=== PATIENT | female | born 1945 | race Caucasian/White ===

== ENCOUNTER 2016-12-01 11:04 | Emergency (ER) ==
[2016-12-01 12:13] LABS: MANUAL DIFF NEEDED? NO
[2016-12-01 12:25] LABS: INR 1.07; PROTIME 11.4 Seconds (9.2-11.7); PTT 23.7 Seconds (22.0-36.0)
--- NOTE | 2016-12-01 12:25 | Diag Imaging Result Document ---
PROCEDURE NAME: CHEST-2 VIEWS - 12/01/2016 CHEST X-RAY 2 VIEWS: COMPARISON: 11/08/2016. FINDINGS: There is a right PICC line with the catheter tip in the bottom of the right atrium. The lungs are grossly clear, and the heart size is normal. No pneumothorax or pleural effusion. IMPRESSION: PICC line is in a little too far. Recommend backing this out by about 5 cm.
[2016-12-01 12:27] LABS: BASO% 0.4 % (0.0-0.8); EOS# 0.39 X1000 (0.0-0.7); EOS% 4.8 % (0.0-10.0); HEMATOCRIT 24.5 % (37.0-47.0); HEMOGLOBIN 8.1 g/dL (12.0-16.0); IMM GRAN# 0.03 X1000 (0.0-0.04); IMM GRAN% 0.4 % (0.0-0.5); LYMPH# 1.03 X1000 (1.2-3.4); LYMPH% 12.7 % (20.5-51.1); MCH 29.1 PG (27-31); MCHC 33.1 g/dL (33-37); MCV 88.1 FL (81-99); MONO# 0.55 X1000 (0.11-0.59); MONO% 6.8 % (1.7-9.3); MPV 10.5 FL (7.4-10.4); NEUT% 74.9 % (42.2-75.2); PLT 184 X1000 (130-400); RBC 2.78 XMIL (4.2-5.4)
[2016-12-01 12:45] LABS: ALBUMIN 3.6 g/dL (3.5-5.0); CALCIUM 8.5 mg/dL (8.8-10.2); POTASSIUM 4.6 mmol/L (3.5-5.1); TOTAL BILIRUBIN 0.26 mg/dL (0.20-1.00); TOTAL PROTEIN 6.3 g/dL (6.3-8.3)
--- NOTE | 2016-12-01 12:59 | PROVIDER DOCUMENTATION ---
Addendum entered and electronically signed by Godwin Navarro Scribe 12/01/16 13 :14: Progress - CONSULTS/PCP/HOSPITALIST Notification #1 *Consult/PCP/Hospitalist*: Dr.R Alvares Time Discussed: 12:50 Reason/Comments: placepatient on elquis Consult Disposition: F/U in office #2 Consult: Dr. Wilian Norris Time Discussed: 13:14 Reason/Comments: dvt, picc line remove, order gammglobin Consult Disposition: F/U in office Original Note: HPI-General Adult - General Source: patient - History of Present Illness -Gen Adult Nature of Presenting Problems: patient is a 71 y/o F that presents to the ER with right arm swelling and evaluation of PICC line per Dr.Leroy Norris. patient has PICC in place for outpatient antibiotics. patient has swelling to arm and was worried she might have DVT, no shortness of breath, no chest pain. Location of Pain/Injury: reports: upper extremity (right arm) Pain Radiation: reports: no radiation Severity: reports: mild Onset/Duration: reports: unsure Timing: reports: still present, constant Context/Activities at Onset: reports: other (picc line) Modifying Factors: improves with: nothing Associated Symptoms: reports: arm pain. denies: back/neck pain, constipation, dizziness, EENT symptoms, fatigue, joint pain, malaise, nausea, vomiting Similar Symptoms Previously?: No Recently seen or treated by another doctor?: Yes - General Chief Complaint: Edema Stated Complaint: POSS CLOT IN PIC LINE Time Seen by Provider: 12/01/16 11:32 Allergies/Adverse Reactions: Patient Allergies Allergy/AdvReac Type Severity Reaction Status Date / Time No Known Allergies Allergy Verified 12/01/16 12:14 Home Medications: Carvedilol [Coreg] 12.5 mg PO BID 10/21/13 Amlodipine Besylate 5 mg PO DAILY 01/29/16 Iron Carbonyl/Ascorbic Acid [Icar-C] 1 tab PO BID 02/15/16 Bisacodyl [Dulcolax] 10 mg [place] DAILY PRN PRN 10/06/16 Diphenhydramine [Benadryl] 25 mg PO Q4-6H PRN PRN 10/06/16 Fluoxetine HCl 40 mg PO DAILY 10/06/16 Fluticasone Propionate [Flonase Allergy Relief] 1 spray NS BID 10/06/16 Hydrocodone/Acetaminophen [[place] 5-325 Tablet] 1 each PO Q4H PRN PRN 10/06/16 Insulin Lispro [Humalog] 6 unit SQ TID 10/06/16 LOVAstatin [Mevacor] 20 mg PO HS 10/06/16 Levothyroxine [Synthroid] 25 microgm PO DAILY 10/06/16 Omeprazole [Prilosec] 20 mg PO DAILY@0700 10/06/16 Topiramate 25 mg PO DAILY 10/06/16 Review of Systems - Adult - REVIEW OF SYSTEMS - ADULT Constitutional: denies: chills, fever Eyes: reports: no symptoms reported Ears, Nose, Mouth & Throat: reports: no symptoms reported Cardiovascular: denies: chest pain, orthopnea, palpitations, syncope Respiratory: denies: hemoptysis, pleurisy, shortness of breath Gastrointestinal: denies: abdominal pain, nausea, vomiting Genitourinary: reports: no symptoms reported Musculoskeletal: reports: bone pain. denies: back pain, neck pain Integumentary: reports: no symptoms reported Neurological: reports: no symptoms reported Psychiatric: reports: no symptoms reported Endocrine: reports: no symptoms reported Hematologic/Lymphatic: reports: no symptoms reported Allergic/Immunologic: reports: no symptoms reported All Other Systems: Reviewed and Negative Past History - Adult - PAST MEDICAL HISTORY-ADULT Review of Records: reports: Old Records Reviewed, Nursing Assessment Review, Medications Reviewed Cardiovascular: reports: CHF, HTN, hyperlipidemia Respiratory: reports: asthma, COPD Genitourinary: reports: kidney disease Neurological: reports: dementia Endocrine/Immune: reports: Diabetes - PRIOR SURGERIES/PROCEDURES Surgical/Procedure History: reports: hysterectomy, BTL, indwelling device (PICC LINE), tonsillectomy, orthopedic (extremity) (arthroscopy), joint replacement ( Left Hip), other (cystoscopy) - IMMUNIZATION STATUS Childhood Immunizations: See Nurse Assessment Flu Vaccine: See Nurse Assessment - FAMILY HISTORY Family History: reviewed, not pertinent Physical Exam-General - PHYSICAL EXAM-ADULT Initial Vital Signs Reviewed: Yes - CONSTITUTIONAL General Appearance: alert, no apparent distress - EYES Eyes: PERRL/EOMI, pink conjunctivae - HEAD, EARS, NOSE, MOUTH & THROAT HENMT: normocephalic/atraumatic, moist mucous membranes, normal ENT inspection - NECK Neck: full range of motion, normal inspection. negative: lymphadenopathy - RESPIRATORY Respiratory: lungs clear, normal breath sounds, no respiratory distress, no accessory muscle use - CARDIOVASCULAR Cardiovascular: regular rate, rhythm, no edema, no murmur - GASTROINTESTINAL (ABDOMEN) Abdominal Exam: normal bowel sounds, non tender, soft, no organomegaly - MUSCULOSKELETAL Back Exam: no CVA tenderness, no vertebral tenderness Extremity: normal capillary refill, pelvis stable, swelling (right arm, picc line in place) - SKIN Integumentary: normal turgor, warm/dry - NEUROLOGIC Neurologic: grossly normal, no motor/sensory deficits - PSYCHIATRIC Psych/Mental Status: normal mood/affect, normal thought content, normal thought process, oriented x 3 Progress - PLAN OF CARE/RESULTS Progress/Plan/Lab Results: Vital Signs Temp Pulse Resp BP Pulse Ox 12/01/16 11:12 98.2 F 69 24 165/67 98 No Known Allergies Allergy (Verified 12/01/16 12:14) Carvedilol [Coreg] 12.5 mg PO BID 10/21/13 Aspirin 81 mg PO DAILY #0 chewtab 06/26/14 Amlodipine Besylate 5 mg PO DAILY 01/29/16 Iron Carbonyl/Ascorbic Acid [Icar-C] 1 tab PO BID 02/15/16 Bisacodyl [Dulcolax] 10 mg [place] DAILY PRN PRN 10/06/16 Diphenhydramine [Benadryl] 25 mg PO Q4-6H PRN PRN 10/06/16 Fluoxetine HCl 40 mg PO DAILY 10/06/16 Fluticasone Propionate [Flonase Allergy Relief] 1 spray NS BID 10/06/16 Hydrocodone/Acetaminophen [[place] 5-325 Tablet] 1 each PO Q4H PRN PRN 10/06/16 Insulin Lispro [Humalog] 6 unit SQ TID 10/06/16 LOVAstatin [Mevacor] 20 mg PO HS 10/06/16 Levothyroxine [Synthroid] 25 microgm PO DAILY 10/06/16 Omeprazole [Prilosec] 20 mg PO DAILY@0700 10/06/16 Topiramate 25 mg PO DAILY 10/06/16 Doxycycline Hyclate 100 mg PO BID #0 11/09/16 Ergocalciferol (Vitamin D2) [Vitamin D] 50,000 unit PO Q7D #0 capsule 11/09/16 Insulin Detemir [Levemir] 25 unit SUBQ BID #0 insuln.pen 11/09/16 Meropenem [Merrem] 500 mg IV Q12H #1 vial 11/09/16 Polyethylene Glycol 3350 [Miralax] 17 gm PO BID #0 powder, packet 11/09/16 Sodium Bicarbonate 1,300 mg PO BID #0 tablet 11/09/16 Laboratory 12/01/16 12/01/16 12/01/16 12:00 12:00 12:00 WBC RBC Hgb Hct MCV MCH MCHC RDW Std Deviation Plt Count MPV Immature Gran % (Auto) Neut % (Auto) Lymph % (Auto) [place] % (Auto) Eos % (Auto) Baso % (Auto) Immature Gran # (Auto) Neut # (Auto) Lymph # (Auto) [place] # (Auto) Eos # (Auto) Baso # (Auto) PT 11.4 INR 1.07 PTT (Actin FS) 23.7 Sodium Potassium Chloride Carbon Dioxide Anion Gap BUN Creatinine Estimated GFR/1.73 m2 BUN/Creatinine Ratio Glucose Calculated Osmolality Calcium Magnesium Total Bilirubin AST ALT Alkaline Phosphatase Creatine Kinase Troponin T 0.068 Nms-J-Bhovrbwpdwb Pept 3579 H Total Protein Albumin Globulin Albumin/Globulin Ratio 12/01/16 12/01/16 12:00 12:00 WBC 8.09 RBC 2.78 L Hgb 8.1 L Hct 24.5 L MCV 88.1 MCH 29.1 MCHC 33.1 RDW Std Deviation 13.2 Plt Count 184 MPV 10.5 H Immature Gran % (Auto) 0.4 Neut % (Auto) 74.9 Lymph % (Auto) 12.7 L [place] % (Auto) 6.8 Eos % (Auto) 4.8 Baso % (Auto) 0.4 Immature Gran # (Auto) 0.03 Neut # (Auto) 6.06 Lymph # (Auto) 1.03 L [place] # (Auto) 0.55 Eos # (Auto) 0.39 Baso # (Auto) 0.03 PT INR PTT (Actin FS) Sodium 140 Potassium 4.6 Chloride 105 Carbon Dioxide 20 L Anion Gap 15 BUN 49 H Creatinine 3.1 H Estimated GFR/1.73 m2 15 BUN/Creatinine Ratio 16 Glucose 181 H Calculated Osmolality 297 Calcium 8.5 L Magnesium 2.0 Total Bilirubin 0.26 AST 9 L ALT 10 Alkaline Phosphatase 81 Creatine Kinase 35 Troponin T Oui-Y-Ukfnzpjebom Pept Total Protein 6.3 Albumin 3.6 Globulin 2.7 Albumin/Globulin Ratio 1.3 Orders Category Date Time Status Cardiac Monitoring DIRECTED Care 12/01/16 11:26 Active Saline Loc NOW Care 12/01/16 11:26 Active CHEST-2 VIEWS [RAD] Stat Exams 12/01/16 11:26 Draft CBC WITH ELECTRONIC DIFF [HEME] Stat Lab 12/01/16 12:00 Completed CK PROFILE [SP CHEM] Stat Lab 12/01/16 12:00 Completed COMPREHENSIVE METABOLIC PANEL [CHEM] Stat Lab 12/01/16 12:00 Com[address] D-DIMER PL [COAG] Stat Lab 12/01/16 12:00 Ordered MAGNESIUM [CHEM] Stat Lab 12/01/16 12:00 Completed PRO B-NATRIURETIC PEPTIDE Stat Lab 12/01/16 12:00 Completed PROTIME WITH INR [COAG] Stat Lab 12/01/16 12:00 Completed PTT [COAG] Stat Lab 12/01/16 12:00 Completed TROPONIN T Stat Lab 12/01/16 12:00 Completed EKG [EKG] Stat Ther 12/01/16 11:26 Ordered US [Venous U/S Right Arm] [CV] Stat Ther 12/01/16 11:30 Ordered removed PICC LINE, spoke with who recommended placing patient on Elquis and following up with him outpatient randall. pt was clinically stable. - ULTRASOUND (By Radiology) 1 US Study: Upper Ext Impression: Abnormal US Results: dvt Departure - Departure Time of Disposition Order: 12:54 Certified Medical Emergency: Emergent - Departure DIAGNOSIS: Arm edema, Deep vein thrombosis (DVT) of right upper extremity Disposition: HOME 01 Condition: Stable Additional Instructions: f/u with Dr. Norris and Giorgio ED Follow Up Instructions: You have been treated by a care provider in the Emergency Department. These instructions are being provided to you so you can have an understanding of how to care for yourself upon discharge. Upon discharge from the Emergency Department, you are responsible for making arrangements for follow-up care by a physician of your choice. Take all prescribed medications as directed. Return to the Emergency Department immediately for any new or worsening symptoms. You may call the Physician Referral phone number at [phone] to obtain a list of Physicians who are taking new patients. Prescriptions: Apixaban [Eliquis] 5 mg PO BID #208 tablet Referrals: Lynne Kwok MD [Primary Care Provider] - Wilian Norris MD [STAFF PHYSICIAN] - Call for Appoint. 1-2days Jey Alvares MD [STAFF PHYSICIAN] - Call for Appoint. 1-2days Instructions: Deep Vein Thrombosis Attestation - Scribe Verification/Attestation Scribe:: Godwin Navarro Acting as Scribe for:: Gonzalo Zavaleta Scribe documention review:: This chart was documented by a scribe and accurately reflects the service the provider performed and the decisions made by the provider. Physician Attestation - Physician Attestation I, the provider, attest to the following statement:: Gonzalo Zavaleta Physician documentation Attestation:: This documentation recorded by the scribe accurately reflects the service I personally performed and the decisions made by me.
[2016-12-01] MEDS ORDERED: ELIQUIS PO ONE (13:00)
[2016-12-01 13:50] VITALS: BP 168/78
--- NOTE | 2016-12-02 16:53 | Extremity Venous Study ---
PROCEDURE NAME: Venous U/S Right Arm - 12/01/2016 REQUESTING PHYSICIAN: Dr. Zavaleta in the emergency department. LACE ROLLER OPERATOR: Olinda. TEST: Right upper extremity venous study. INDICATIONS: Edema at peripherally inserted catheter. PROCEDURES: Right upper extremity venous duplex color-flow imaging. EQUIPMENT: G[employer] Vivid E9 ultrasound system and a 9 LD transducer. FINDINGS: Imaging of the right upper extremity with comparison shot to the left subclavian vein retained in both sagittal and transverse planes. Doppler was used to evaluate veins for spontaneity, phasicity, respiratory excursion, and digital augmentation. RESULTS: DVT noted the right axillary vein and superficial venous thrombosis noted in the right basilic vein. This appears to be associated with a catheter. INTERPRETATION: Catheter-associated superficial venous thrombosis in the right basilic vein and deep venous thrombosis noted the right axillary vein.
== END 2016-12-01 13:49 | disposition home or self-care (01) ==
LOC: ED 11:04
DX: I82.621 Acute embolism and thrombosis of deep veins of right upper extremity (principal); R60.9 Edema, unspecified; I10 Essential (primary) hypertension; E78.5 Hyperlipidemia, unspecified; J44.9 Chronic obstructive pulmonary disease, unspecified; F03.90 Unspecified dementia, unspecified severity, without behavioral disturbance, psychotic disturbance, mood disturbance, and anxiety; E11.9 Type 2 diabetes mellitus without complications; M89.8X9 Other specified disorders of bone, unspecified site; Z79.899 Other long term (current) drug therapy; Z96.642 Presence of left artificial hip joint; Z79.4 Long term (current) use of insulin
CPT/HCPCS: 36415; 71020; 80053; 82550; 82784; 83735; 83880; 84484; 85025; 85610; 85730; 93971; 99283

== ENCOUNTER 2016-12-04 13:30 | Emergency (ER) ==
[2016-12-04] MEDS ORDERED: NITROGLYCERIN SL PRN (13:53)
[2016-12-04] MEDS ORDERED: ASPIRIN PO STA (13:53)
--- NOTE | 2016-12-04 14:18 | PROVIDER DOCUMENTATION ---
HPI-Respiratory General - General Chief Complaint: Low Blood Sugar Stated Complaint: SOB/hypoglycemia Time Seen by Provider: 12/04/16 13:35 Source: patient Allergies/Adverse Reactions: Patient Allergies Allergy/AdvReac Type Severity Reaction Status Date / Time No Known Allergies Allergy Verified 12/04/16 13:53 Home Medications: Carvedilol [Coreg] 12.5 mg PO BID 10/21/13 Amlodipine Besylate 5 mg PO DAILY 01/29/16 Iron Carbonyl/Ascorbic Acid [Icar-C] 1 tab PO BID 02/15/16 Bisacodyl [Dulcolax] 10 mg [place] DAILY PRN PRN 10/06/16 Diphenhydramine [Benadryl] 25 mg PO Q4-6H PRN PRN 10/06/16 Fluoxetine HCl 40 mg PO DAILY 10/06/16 Fluticasone Propionate [Flonase Allergy Relief] 1 spray NS BID 10/06/16 Hydrocodone/Acetaminophen [[place] 5-325 Tablet] 1 each PO Q4H PRN PRN 10/06/16 Insulin Lispro [Humalog] 6 unit SQ TID 10/06/16 LOVAstatin [Mevacor] 20 mg PO HS 10/06/16 Levothyroxine [Synthroid] 25 microgm PO DAILY 10/06/16 Omeprazole [Prilosec] 20 mg PO DAILY@0700 10/06/16 Topiramate 25 mg PO DAILY 10/06/16 - History of Present Illness-Resp Nature of Presenting Problem: 71 yo WF brought in by EMS from [facility]. Her blood sugar had dropped again and she developed SOB when they laid her down flat. Her BS was initially in the 50s. It was 94 in the truck and 83 on arrival to ED. Her breathing difficulty had resolved on arrival. Very complex medical history Quality of Pain: reports: none Timing: reports: still present Context: reports: other Cough Quality/Degree: reports: no cough Current Respiratory Medication Therapy: Initiated none Modifying Factors: improves with: oxygen, rest, sitting upright Associated Symptoms: reports: shortness of breath, short of breath. denies: sore throat, wheezing Similar Symptoms Previously?: Yes Recently seen or treated by another doctor?: Yes Review of Systems - Adult - REVIEW OF SYSTEMS - ADULT Constitutional: reports: no symptoms reported Eyes: reports: no symptoms reported Ears, Nose, Mouth & Throat: reports: no symptoms reported Cardiovascular: reports: orthopnea Respiratory: reports: shortness of breath Gastrointestinal: reports: no symptoms reported Genitourinary: reports: no symptoms reported, frequent UTI's, other (has chronic flores changed every 30 days) Musculoskeletal: reports: no symptoms reported Integumentary: reports: no symptoms reported Neurological: reports: no symptoms reported Psychiatric: reports: no symptoms reported Endocrine: reports: other (frequent hypoglycemia, almost every morning) Hematologic/Lymphatic: reports: no symptoms reported Allergic/Immunologic: reports: no symptoms reported All Other Systems: Reviewed and Negative Past History - Adult - PAST MEDICAL HISTORY-ADULT Review of Records: reports: Old Records Reviewed, Nursing Assessment Review, Medications Reviewed, Social history reviewed & non-contributory. Cardiovascular: reports: CHF, HTN, hyperlipidemia Respiratory: reports: asthma, COPD Genitourinary: reports: kidney disease Neurological: reports: dementia Endocrine/Immune: reports: Diabetes - PRIOR SURGERIES/PROCEDURES Surgical/Procedure History: reports: hysterectomy, BTL, indwelling device (PICC LINE), tonsillectomy, orthopedic (extremity) (arthroscopy), joint replacement ( Left Hip), other (cystoscopy) - IMMUNIZATION STATUS Childhood Immunizations: See Nurse Assessment Flu Vaccine: See Nurse Assessment - FAMILY HISTORY Family History: reviewed, not pertinent - SOCIAL HISTORY Smoking: denies Substance Use: none/never Alcohol Use Frequency: never Living Situation: other (ID) Physical Exam-General - PHYSICAL EXAM-ADULT Initial Vital Signs Reviewed: Yes - CONSTITUTIONAL General Appearance: no apparent distress - EYES Eyes: PERRL/EOMI, pink conjunctivae - HEAD, EARS, NOSE, MOUTH & THROAT HENMT: normocephalic/atraumatic, moist mucous membranes - NECK Neck: supple - RESPIRATORY Respiratory: lungs clear, normal breath sounds. negative: wheezing - CARDIOVASCULAR Cardiovascular: regular rate, rhythm - GASTROINTESTINAL (ABDOMEN) Abdominal Exam: normal bowel sounds, non tender - MUSCULOSKELETAL Back Exam: no CVA tenderness, other (R arm larger than left due to previous clot ) Extremity: pedal edema - SKIN Integumentary: pallor - NEUROLOGIC Neurologic: grossly normal - PSYCHIATRIC Psych/Mental Status: normal mood/affect Progress - PLAN OF CARE/RESULTS Progress/Plan/Lab Results: No Known Allergies Allergy (Verified 12/04/16 13:53) Carvedilol [Coreg] 12.5 mg PO BID 10/21/13 Aspirin 81 mg PO DAILY #0 chewtab 06/26/14 Amlodipine Besylate 5 mg PO DAILY 01/29/16 Iron Carbonyl/Ascorbic Acid [Icar-C] 1 tab PO BID 02/15/16 Bisacodyl [Dulcolax] 10 mg [place] DAILY PRN PRN 10/06/16 Diphenhydramine [Benadryl] 25 mg PO Q4-6H PRN PRN 10/06/16 Fluoxetine HCl 40 mg PO DAILY 10/06/16 Fluticasone Propionate [Flonase Allergy Relief] 1 spray NS BID 10/06/16 Hydrocodone/Acetaminophen [[place] 5-325 Tablet] 1 each PO Q4H PRN PRN 10/06/16 Insulin Lispro [Humalog] 6 unit SQ TID 10/06/16 LOVAstatin [Mevacor] 20 mg PO HS 10/06/16 Levothyroxine [Synthroid] 25 microgm PO DAILY 10/06/16 Omeprazole [Prilosec] 20 mg PO DAILY@0700 10/06/16 Topiramate 25 mg PO DAILY 10/06/16 Doxycycline Hyclate 100 mg PO BID #0 11/09/16 Ergocalciferol (Vitamin D2) [Vitamin D] 50,000 unit PO Q7D #0 capsule 11/09/16 Insulin Detemir [Levemir] 25 unit SUBQ BID #0 insuln.pen 11/09/16 Meropenem [Merrem] 500 mg IV Q12H #1 vial 11/09/16 Polyethylene Glycol 3350 [Miralax] 17 gm PO BID #0 powder, packet 11/09/16 Sodium Bicarbonate 1,300 mg PO BID #0 tablet 11/09/16 Apixaban [Eliquis] 5 mg PO BID #208 tablet 12/01/16 Dietary Diet Regular Diet Start Sun Dec 04 1353 Laboratory 12/04/16 12/04/16 12/04/16 14:15 14:15 14:15 WBC RBC Hgb Hct MCV MCH MCHC RDW Std Deviation Plt Count MPV Immature Gran % (Auto) Neut % (Auto) Lymph % (Auto) [place] % (Auto) Eos % (Auto) Baso % (Auto) Immature Gran # (Auto) Neut # (Auto) Lymph # (Auto) [place] # (Auto) Eos # (Auto) Baso # (Auto) PT 12.2 H INR 1.15 PTT (Actin FS) 27.0 D-Dimer Sodium Potassium Chloride Carbon Dioxide Anion Gap BUN Creatinine Estimated GFR/1.73 m2 BUN/Creatinine Ratio Glucose Calculated Osmolality Calcium Magnesium Total Bilirubin AST ALT Alkaline Phosphatase Creatine Kinase Troponin T 0.071 Yig-A-Yykrthrknjf Pept 3361 H Total Protein Albumin Globulin Albumin/Globulin Ratio 12/04/16 12/04/16 12/04/16 14:15 14:15 14:15 WBC 9.72 RBC 2.89 L Hgb 8.3 L Hct 25.3 L MCV 87.5 MCH 28.7 MCHC 32.8 L RDW Std Deviation 13.0 Plt Count 211 MPV 10.0 Immature Gran % (Auto) 0.5 Neut % (Auto) 77.9 H Lymph % (Auto) 10.2 L [place] % (Auto) 6.1 Eos % (Auto) 5.0 Baso % (Auto) 0.3 Immature Gran # (Auto) 0.05 H Neut # (Auto) 7.57 H Lymph # (Auto) 0.99 L [place] # (Auto) 0.59 Eos # (Auto) 0.49 Baso # (Auto) 0.03 PT INR PTT (Actin FS) D-Dimer 1.64 H Sodium 139 Potassium 4.3 Chloride 105 Carbon Dioxide 20 L Anion Gap 14 BUN 50 H Creatinine 3.2 H Estimated GFR/1.73 m2 14 BUN/Creatinine Ratio 16 Glucose 61 L Calculated Osmolality 289 Calcium 8.0 L Magnesium 2.0 Total Bilirubin 0.21 AST 13 ALT 12 Alkaline Phosphatase 85 Creatine Kinase 28 Troponin T Cdh-M-Bjyyuwcssod Pept Total Protein 6.3 Albumin 3.7 Globulin 2.6 Albumin/Globulin Ratio 1.4 1500 Patient much improved in mentation and interaction. Discussed discharge and need to monitor BS and have insulin adjusted. Needs continuous monitoring of BS and Cr. Departure - Departure Time of Disposition Order: 15:30 DIAGNOSIS: Hypoglycemia due to insulin, Chronic kidney disease, stage 4 (severe), DVT of right axillary vein, chronic Disposition: [facility] 03 Certified Medical Emergency: Emergent Condition: Stable
--- NOTE | 2016-12-04 14:19 | ED EKG INTERP ---
EKG Interpretation - EKG Time of EKG reading by physician:: 14:11 EKG Read and Signed by:: Bernard Norton EKG Interpretation (*Must complete 3 of following elements*): Abnormal Rate: 62 (left axis deviation; nonspecific intracentricular block) Rhythm: undeterminded rhythm Attestation - Scribe Verification/Attestation Scribe:: Paris Olsen Acting as Scribe for:: Bernard Norton Scribe documention review:: This chart was documented by a scribe and accurately reflects the service the provider performed and the decisions made by the provider.
[2016-12-04 14:25] LABS: MANUAL DIFF NEEDED? NO
--- NOTE | 2016-12-04 14:27 | Diag Imaging Result Document ---
PROCEDURE NAME: CHEST-2 VIEWS - 12/04/2016 AP AND LATERAL RADIOGRAPH OF THE CHEST: COMPARISON: 12/01/2016. FINDINGS: There has been interval removal of the right PICC line. The lungs appear to be grossly clear. There is no definite pleural fluid collection. No new consolidations are identified. Cardiac silhouette is stable. IMPRESSION: Interval removal of the right PICC line as described and stable chest, otherwise.
[2016-12-04 14:39] LABS: BASO% 0.3 % (0.0-0.8); EOS# 0.49 X1000 (0.0-0.7); HEMATOCRIT 25.3 % (37.0-47.0); HEMOGLOBIN 8.3 g/dL (12.0-16.0); IMM GRAN# 0.05 X1000 (0.0-0.04); IMM GRAN% 0.5 % (0.0-0.5); LYMPH# 0.99 X1000 (1.2-3.4); LYMPH% 10.2 % (20.5-51.1); MCH 28.7 PG (27-31); MCHC 32.8 g/dL (33-37); MCV 87.5 FL (81-99); MONO# 0.59 X1000 (0.11-0.59); MONO% 6.1 % (1.7-9.3); NEUT% 77.9 % (42.2-75.2); PLT 211 X1000 (130-400); RBC 2.89 XMIL (4.2-5.4)
[2016-12-04 14:42] LABS: INR 1.15; PROTIME 12.2 Seconds (9.2-11.7)
[2016-12-04 15:03] LABS: ALBUMIN 3.7 g/dL (3.5-5.0); POTASSIUM 4.3 mmol/L (3.5-5.1); TOTAL BILIRUBIN 0.21 mg/dL (0.20-1.00); TOTAL PROTEIN 6.3 g/dL (6.3-8.3)
[2016-12-04 16:45] VITALS: BP 156/63
--- NOTE | 2016-12-05 05:41 | EKG Report ---
Test Performed on : 12/04/2016 2:11:13 PM Test Reason : Chest Pain Blood Pressure : / mmHG Vent. Rate : 062 BPM Atrial Rate : 062 BPM P-R Int : 000 ms QRS Dur : 146 ms QT Int : 492 ms P-R-T Axes : -11 -49 008 degrees QTc Int : 499 ms Undetermined rhythm Left axis deviation Nonspecific intraventricular block Abnormal ECG When compared with ECG of 03-NOV-2016 01:58, Current undetermined rhythm precludes rhythm comparison, needs review Nonspecific intraventricular block has replaced Right bundle branch block T wave inversion no longer evident in Anterior leads Unconfirmed Result
== END 2016-12-04 16:45 ==
LOC: ED 13:30
DX: E09.649 Drug or chemical induced diabetes mellitus with hypoglycemia without coma (principal); T38.3X5A Adverse effect of insulin and oral hypoglycemic [antidiabetic] drugs, initial encounter; I82.A11 Acute embolism and thrombosis of right axillary vein; I12.9 Hypertensive chronic kidney disease with stage 1 through stage 4 chronic kidney disease, or unspecified chronic kidney disease; N18.4 Chronic kidney disease, stage 4 (severe); R06.02 Shortness of breath; I10 Essential (primary) hypertension; R94.31 Abnormal electrocardiogram [ECG] [EKG]; Z79.899 Other long term (current) drug therapy; J44.9 Chronic obstructive pulmonary disease, unspecified; R06.01 Orthopnea; E78.5 Hyperlipidemia, unspecified; F03.90 Unspecified dementia, unspecified severity, without behavioral disturbance, psychotic disturbance, mood disturbance, and anxiety; Z87.440 Personal history of urinary (tract) infections; Z96.642 Presence of left artificial hip joint; Z79.82 Long term (current) use of aspirin; Z79.4 Long term (current) use of insulin; Z79.01 Long term (current) use of anticoagulants; Z79.51 Long term (current) use of inhaled steroids
CPT/HCPCS: 71020; 80053; 82550; 82948; 83735; 83880; 84484; 85025; 85379; 85610; 85730; 93005; 99284

== ENCOUNTER → 2017-02-08 | Day surgery (SDC) ==
[~2017-02-08] MED LIST: NS 250 ML IV ONE; NS 250 ML ONE
[2017-02-08 12:44] LABS: HEMATOCRIT 20.9 % (37.0-47.0); HEMOGLOBIN 7.1 g/dL (12.0-16.0)
[2017-02-08 20:48] VITALS: BP 159/72
== END ==
LOC: P.INF 12:00
PROVIDERS: ATTEND Nurse Practitioner Family
DX: D64.9 Anemia, unspecified (principal)
CPT/HCPCS: 36430; 85014; 85018; 86850; 86900; 86901; 86920; J7040; J7050; P9016

== ENCOUNTER 2019-05-24 10:58 | Inpatient (IN) ==
--- NOTE | 2019-05-24 11:25 | PROVIDER DOCUMENTATION ---
HPI-General Adult - General Chief Complaint: Flank Pain Stated Complaint: abd pain Time Seen by Provider: 05/24/19 11:07 Source: patient Allergies/Adverse Reactions: Patient Allergies Allergy/AdvReac Type Severity Reaction Status Date / Time No Known Allergies Allergy Verified 06/22/18 09:13 Home Medications: Home Medication List Medication Instructions Recorded Confirmed Last Taken Type LOVAstatin [Mevacor] 20 mg PO HS 10/06/16 06/27/18 02/01/18 22:00 History Levothyroxine [Synthroid] 25 microgm PO QHS 10/06/16 06/27/18 02/01/18 22:00 History Omeprazole [Prilosec] 20 mg PO QHS 10/06/16 06/27/18 02/01/18 22:00 History Carvedilol [Coreg] 25 mg PO BID #0 tablet 10/18/17 06/27/18 02/02/18 10:00 Rx Insulin Detemir [Levemir Flextouch] 20 units SQ BID 12/01/17 06/27/18 06/27/18 06:00 History 20 Ergocalciferol (Vitamin D2) 50,000 unit PO Q7D 01/15/18 06/27/18 01/29/18 10:00 History [Vitamin D] Insulin Aspart [Novolog Flexpen] 5 units SQ TID 01/15/18 06/27/18 06/27/18 06:00 History 5 Amlodipine [Norvasc] 10 mg PO QAM 02/03/18 06/27/18 02/02/18 10:00 History Calcitriol [Rocaltrol] 0.25 microgm PO QAM 02/03/18 06/27/18 02/02/18 10:00 History Calcium Acetate [Phoslo] 2 cap PO TID 02/03/18 06/27/18 02/02/18 17:00 History Fluoxetine HCl 10 mg PO DAILY 02/03/18 06/27/18 02/02/18 10:00 History Dextrose [Glucose Gel] 1 dose PO ORDERED PRN 06/22/18 06/27/18 Unknown History Docusate Sodium [Colace] 2 cap PO QAM 06/22/18 06/27/18 Unknown History Glucagon,Human Recombinant 1 mg IM Q15M PRN 06/22/18 06/27/18 Unknown History [Glucagon Emergency Kit] Hydrocodone/Acetaminophen 1 tab PO Q4H PRN 06/22/18 06/27/18 Unknown History [Hydrocodone-Acetamin 10-325 mg] Insulin Aspart [Novolog] 1 dose SQ DIRECTED PRN 06/22/18 06/27/18 Unknown History L.acidoph,Paracasei, B.lactis 1 cap PO DAILY 06/22/18 06/27/18 Unknown History [Probiotic] Hydrocodone/Acetaminophen [[place] 1 each PO Q4H PRN PRN #12 tablet 06/27/18 Unknown Rx 7.5-325 Tablet] - History of Present Illness -Gen Adult Nature of Presenting Problems: Patient is a 74 yowf who complains of right-sided abdominal pain x "a few days". Pain is associated with nausea. She denies vomiting, diarrhea, fever, or any other symptoms. Arrived via EMS from [facility]. Hx of renal failure on dialysis, pt missed dialysis this morning due to pain. Also states, "I keep passing out. I've passed out about a dozen times in the last few weeks." States she had a syncopal episode today while sitting in the chair at dialysis. Denies chest pain, SOB, dizziness, or any other symptoms. She is non-toxic in appearance. Review of Systems - Adult - REVIEW OF SYSTEMS - ADULT Constitutional: reports: no symptoms reported. denies: chills, fever Eyes: reports: no symptoms reported Ears, Nose, Mouth & Throat: reports: no symptoms reported Cardiovascular: reports: see HPI, syncope. denies: chest pain, edema, palpitations Respiratory: reports: no symptoms reported. denies: shortness of breath Gastrointestinal: reports: see HPI, abdominal pain, nausea. denies: diarrhea, vomiting Genitourinary: reports: no symptoms reported Musculoskeletal: reports: no symptoms reported Integumentary: reports: no symptoms reported Neurological: reports: see HPI, syncope. denies: dizziness/vertigo, headache/migraines, numbness, paresthesia, seizure, slurred speech Psychiatric: reports: no symptoms reported Endocrine: reports: no symptoms reported Hematologic/Lymphatic: reports: no symptoms reported Allergic/Immunologic: reports: no symptoms reported All Other Systems: Reviewed and Negative Past History - Adult - PAST MEDICAL HISTORY-ADULT Review of Records: reports: Old Records Reviewed, Nursing Assessment Review, Medications Reviewed, Social history reviewed & non-contributory. Major Childhood Illnesses: reports: denies history Cardiovascular: reports: CHF, HTN, hyperlipidemia Respiratory: reports: asthma, COPD Gastrointestinal: reports: GERD Obstetrical/Gynecological: reports: denies history Genitourinary: reports: dialysis, ESRD, kidney disease, chronic UTI's Musculoskeletal: reports: denies history Neurological: reports: dementia Psychiatric: reports: depression Endocrine/Immune: reports: Diabetes, thyroid disorder Other Conditions: reports: denies history - PRIOR SURGERIES/PROCEDURES Surgical/Procedure History: reports: hysterectomy, BTL, indwelling device (PICC LINE), tonsillectomy, orthopedic (extremity) (arthroscopy), joint replacement (Left Hip), other (cystoscopy) - IMMUNIZATION STATUS Childhood Immunizations: See Nurse Assessment Flu Vaccine: See Nurse Assessment - FAMILY HISTORY Family History: reviewed, not pertinent - SOCIAL HISTORY Smoking: non-smoker Physical Exam-General - PHYSICAL EXAM-ADULT Initial Vital Signs Reviewed: Yes - CONSTITUTIONAL General Appearance: alert, no apparent distress. negative: lethargic, slow to respond - EYES Eyes: PERRL/EOMI, pink conjunctivae - HEAD, EARS, NOSE, MOUTH & THROAT HENMT: normocephalic/atraumatic, moist mucous membranes - NECK Neck: full range of motion, supple, normal inspection - RESPIRATORY Respiratory: chest non-tender, lungs clear, normal breath sounds, no pleuratic chest pain, no respiratory distress, no accessory muscle use - CARDIOVASCULAR Cardiovascular: regular rate, rhythm, no gallop, no murmur - GASTROINTESTINAL (ABDOMEN) Abdominal Exam: normal bowel sounds, soft, no pulsatile mass, tenderness (Right mid-abdomen). negative: distended, guarding, rigid, rebound, hernia, mass - MUSCULOSKELETAL Back Exam: normal inspection Extremity: normal range of motion, normal inspection - SKIN Integumentary: normal color, warm/dry. negative: cyanosis, diaphoresis, jaundice, mottled, pallor - NEUROLOGIC Neurologic: grossly normal, no motor/sensory deficits - PSYCHIATRIC Psych/Mental Status: normal mood/affect, normal thought content, normal thought process, other (Pt alert and oriented to self and place.) Progress - PLAN OF CARE/RESULTS Progress/Plan/Lab Results: Vital Signs - 8 hr 05/24/19 11:09 Temperature 97.6 F Pulse Rate 61 Respiratory Rate 16 Blood Pressure 151/61 O2 Sat by Pulse Oximetry 98 Orders Category Date Time Status Cardiac Monitoring DIRECTED Care 05/24/19 11:22 Ordered Saline Loc NOW Care 05/24/19 11:24 Ordered CHEST-2 VIEWS [RAD] Stat Exams 05/24/19 11:[address] HEAD W/O CONTRAST [CT] Stat Exams 05/24/19 11:22 Ordered CBC WITH DIFF [HEME] Stat Lab 05/24/19 11:21 Ordered COMPREHENSIVE METABOLIC PANEL [CHEM] Stat Lab 05/24/19 11:22 Uncollected MAGNESIUM [CHEM] Stat Lab 05/24/19 11:22 Uncollected PRO B-NATRIURETIC PEPTIDE Stat Lab 05/24/19 11:22 Uncollected PROTIME WITH INR [COAG] Stat Lab 05/24/19 11:22 Uncollected PTT [COAG] Stat Lab 05/24/19 11:22 Uncollected TROPONIN T Stat Lab 05/24/19 11:22 Ordered UA NIMS W/REFLEX CULT [URINALYSIS] Stat Lab 05/24/19 11:22 Uncollected EKG [EKG] Stat Ther 05/24/19 11:23 Ordered 1201-Spoke with Dr. Fisher's REAL ESTATE PHOTOGRAPHER, states ok to administer contrast, REAL ESTATE PHOTOGRAPHER aware of patient's chief complaint and arrival to the ED. 1518-Admitting HPS paged. Pt currently in dialysis. RADHA Gold aware of admission plan. Result Diagrams: 05/24/19 11:37 05/24/19 11:37 - EKG 1 Time of EKG reading by physician:: 11:54 EKG Read and Signed by:: Mohinder Amado EKG Interpretation (*Must complete 3 of following elements*): Abnormal Rate: 61 Rhythm: RBBB, left anterior fascicular block ST Wave: normal Prior EKG Comparison: unchanged from prior - XRAY 1 XRAY Study: Chest (IMPRESSION: Pulmonary edema with a small infiltrate in the right lung base. Electronically signed by Nico Oconnell 05/24/2019 12:12 PM 05/24/19 1212) - CT/MRI 1 CT Study: Abdomen, Pelvis (IMPRESSION: 1. Chronic bronchitis and bronchopneumonia in the lung bases. 2. Severe inflammation of the urinary bladder and renal collecting systems compatible with urinary tract infection. 3. Severe atrophy of the right kidney. Worsens prior. 4. Severe chronic atrophy of the pancreas stable from prior. 5. Constipation. This exam was performed using automated exposure control, adjustment of mA or kV according to patient size, and/or use of iterative reconstruction technique Electronically signed by Mac Enriquez 05/24/2019 3:03 PM) 2 CT Study: Head (IMPRESSION: No acute disease or change from prior. This exam was performed using automated exposure control, adjustment of mA or kV according to patient size, and/or use of iterative reconstruction technique Electronically signed by Mac Enriquez 05/24/2019 12:18 PM 05/24/19 1218 Interpreting Physician: Mac Enriquez MD Dictated Date/Time: 05/24/19 1217 cc: Marvin Stewart; Benito De Dios MD) - CONSULTS/PCP/HOSPITALIST Notification #1 *Consult/PCP/Hospitalist*: KE Cruz REAL ESTATE PHOTOGRAPHER Time Discussed: 15:37 Reason/Comments: admission- UTI, hx of suprapubic cath and renal failure, abdominal pain Consult Disposition: Admit (to Dr. Rea) Departure - Departure Date of Disposition Decision: 05/24/19 Time of Disposition Decision: 15:30 DIAGNOSIS: UTI (urinary tract infection) Qualifiers: Urinary tract infection type: site unspecified Hematuria presence: with hematuria Qualified Code(s): N39.0 - Urinary tract infection, site not specified Abdominal pain Qualifiers: Abdominal location: unspecified location Qualified Code(s): R10.9 - Unspecified abdominal pain Disposition: ADMITTED INPATIENT 09 Certified Medical Emergency: Emergent Condition: Stable Referrals and Follow-Ups: Benito De Dios MD [Primary Care Provider] - - Critical Care Note This patient required my direct & personal management of CC.: No Attestation - Physician/ ADELAIDA Attestation Patient care was provided by Advanced Practice Provider:: Yes Advanced Practice Provider:: Marvin Stewart Advanced Practice Provider documentation review:: The Mid-level provider documentation, treatment plan and medical decision making was reviewed by the physician who agrees with all treatment and medical decision making by the [facility]. The physician spent face to face time with patient:: No Advanced Practice Provider documentation review:: Supervising physician onsite and consulted in the evaluation and care of this patient. The physician did not have a face to face encounter with the patient.
[2019-05-24 11:50] LABS: BASO# 0.03 X1000 (0.0-0.2); BASO% 0.3 % (0.0-0.8); EOS# 0.18 X1000 (0.0-0.7); HEMATOCRIT 30.5 % (37.0-47.0); HEMOGLOBIN 9.9 g/dL (12.0-16.0); IMM GRAN# 0.15 X1000 (0.0-0.04); IMM GRAN% 1.6 % (0.0-0.5); LYMPH# 0.79 X1000 (1.2-3.4); LYMPH% 8.6 % (20.5-51.1); MCH 27.8 PG (27-31); MCHC 32.5 g/dL (33-37); MCV 85.7 FL (81-99); MONO% 4.4 % (1.7-9.3); NEUT# 7.64 X1000 (1.4-6.5); NEUT% 83.1 % (42.2-75.2); PLT 258 X1000 (130-400); RBC 3.56 XMIL (4.2-5.4); RDW 15.3 % (11.5-14.5); WBC 9.19 X1000 (4.8-10.8)
--- NOTE | 2019-05-24 12:14 | Diag Imaging Result Doc PS360 ---
EXAM: CHEST-2 VIEWS HISTORY: syncope TECHNIQUE: Chest two views COMPARISON: 02/05/2018 FINDINGS: The lungs are well expanded. There are mild increased interstitial markings. The heart is mildly prominent. Increased density in the right base. IMPRESSION: Pulmonary edema with a small infiltrate in the right lung base. Electronically signed by Nico Oconnell 05/24/2019 12:12 PM
--- NOTE | 2019-05-24 12:21 | Diag Imaging Result Doc PS360 ---
CT HEAD W/O CONTRAST - 05/24/2019 INDICATION: syncope COMPARISON: 10/24/2017 FINDINGS: There is a stable old lacunar in the right basal ganglia region. No intracranial mass or hemorrhage. The ventricles and sulci remain normal. The skull is intact. The sinuses are clear. IMPRESSION: No acute disease or change from prior. This exam was performed using automated exposure control, adjustment of mA or kV according to patient size, and/or use of iterative reconstruction technique Electronically signed by Mac Enriquez 05/24/2019 12:18 PM
[2019-05-24 12:39] LABS: URINE SOURCE CATH
[2019-05-24 12:46] LABS: BILIRUBIN URINE NEGATIVE (NEGATIVE); BLOOD URINE LARGE (NEGATIVE); COLOR YELLOW; GLUCOSE URINE 100 mg/dL (NEGATIVE); KETONE URINE NEGATIVE (NEGATIVE); LEUKOCYTES URINE LARGE (NEGATIVE); NITRITE URINE NEGATIVE (NEGATIVE); PH URINE 6.5; PROTEIN URINE 50 mg/dL (NEGATIVE); SP GRAVITY URINE 1.008; TURBIDITY URINE CLEAR (CLEAR); UROBILINOGEN URINE NORMAL (NORMAL)
[2019-05-24 12:47] LABS: UR EPITHELIAL CELLS <10 /HPF (<10); URINE BACTERIA NEGATIVE /HPF; URINE RBC TNTC /HPF (<10); URINE WBC TNTC /HPF (<10)
[2019-05-24] MEDS ORDERED: ROCEPHIN 1 GM in NS 50 ML IV ONE (13:07)
--- NOTE | 2019-05-24 13:08 | EKG Report ---
Test Performed on : 05/24/2019 11:18:19 AM Test Reason : syncope Blood Pressure : / mmHG Vent. Rate : 061 BPM Atrial Rate : 061 BPM P-R Int : 000 ms QRS Dur : 154 ms QT Int : 494 ms P-R-T Axes : 000 -53 -11 degrees QTc Int : 497 ms Wide QRS rhythm. Right bundle branch block Left anterior fascicular block Bifascicular block Minimal voltage criteria for LVH, may be normal variant Septal infarct , age undetermined Abnormal ECG When compared with ECG of 06-FEB-2018 07:56, Wide QRS rhythm. has replaced Sinus rhythm. Unconfirmed Result
[2019-05-24 13:43] LABS: INR 1.27; PROTIME 16.9 Seconds (11.0-16.0)
[2019-05-24 13:44] LABS: PTT 38.8 Seconds (22.3-41.8)
[2019-05-24 14:06] LABS: ALB/GLOB RATIO 1.2; ALBUMIN 3.7 g/dL (3.5-5.0); CALCIUM 10.3 mg/dL (8.8-10.2); CREATININE 4.6 mg/dL (0.5-0.9); MAGNESIUM 1.9 mg/dL (1.5-2.7); TOTAL BILIRUBIN 0.21 mg/dL (0.20-1.00); TOTAL PROTEIN 6.8 g/dL (6.3-8.3)
[2019-05-24] MEDS ORDERED: NS 2,000 ML MISC PRN (14:18)
[2019-05-24] MEDS ORDERED: HEPARIN IV PRN (14:18)
[2019-05-24] MEDS ORDERED: TIGHT: 0.2 ML/HR FOR DIALYSIS MISC PRN (14:18)
--- NOTE | 2019-05-24 15:05 | Diag Imaging Result Doc PS360 ---
CT ABD/PELVIS W/IV CONT ONLY - 05/24/2019 INDICATION: abd pain- right-sided COMPARISON: 11/03/2016 FINDINGS: There are scattered dense infiltrates in the lung bases bilaterally. There is also significant wall thickening of bronchi compatible with chronic bronchitis. There is a trace right pleural effusion. Heart size is grossly normal. No pericardial effusion. There is a suprapubic catheter in good position. There is severe diffuse wall thickening of the urinary bladder. Uterus is absent. Rectum is normal. There is severe atrophy of the pancreas with diffuse dystrophic calcifications. This is basically stable from prior. Stable small cystic area at the anterior pole of the spleen. The kidneys are very atrophic particularly the right kidney. This has worsened since prior. There is diffuse edema about the renal collecting systems, right greater than left. This is worst at the renal pelvis on the right side. There is moderate to severe, diffuse constipation. No bowel obstruction or inflammation. Normal appendix. There is a left femoral neck stabilization nancy. There are moderate degenerative changes of the spine. No acute or suspicious bony lesion. IMPRESSION: 1. Chronic bronchitis and bronchopneumonia in the lung bases. 2. Severe inflammation of the urinary bladder and renal collecting systems compatible with urinary tract infection. 3. Severe atrophy of the right kidney. Worsens prior. 4. Severe chronic atrophy of the pancreas stable from prior. 5. Constipation. This exam was performed using automated exposure control, adjustment of mA or kV according to patient size, and/or use of iterative reconstruction technique Electronically signed by Mac Enriquez 05/24/2019 3:03 PM
[2019-05-24] MEDS ORDERED: VANCOMYCIN IV PER PHARMACY MISC SCH (17:00)
[2019-05-24] MEDS ORDERED: ZOFRAN IV PRN (17:10)
[2019-05-24] MEDS ORDERED: TYLENOL PO PRN (17:10)
[2019-05-24] MEDS ORDERED: DUONEB (A & A) INH PRN (17:26)
[2019-05-24] MEDS ORDERED: VANCOMYCIN 1 GM/NS 1 GM/250 ML IVPB IV ONE (18:00)
[2019-05-24] MEDS: ZOSYN 2.25 GM in NS 50 ML IV SCH (19:07)
[2019-05-24] MEDS: DUONEB (A & A) INH SCH ×2 (19:30→23:10)
[2019-05-24] MEDS ORDERED: PRILOSEC PO SCH (21:00)
--- NOTE | 2019-05-24 21:13 | HISTORY AND PHYSICAL ---
CHIEF COMPLAINT: 1. Generalized weakness. 2. Possible syncopal episodes. HISTORY OF PRESENT ILLNESS: A 74-year-old female with a past medical history of end- stage renal disease on dialysis, CHF, COPD, diabetes, and previous DVT, who presented to the emergency department with a chief complaining of generalized weakness and right-sided abdominal pain for a few days. This has been associated with nausea. No vomiting. As per the patient, she had diarrhea a few days ago as well, but not any more. She denies fever or chills. No chest pain or shortness of breath. As per the patient, also she has been coughing, but nothing comes out when she coughs, and she says that she has been passing out on and off for the past few weeks. Abdomen and pelvis CT scan showed a chronic bronchitis and bronchopneumonia in the lung bases, severe inflammation of the urinary bladder and renal collecting system compatible with urinary tract infection, severe atrophy of the right kidney, severe chronic atrophy of the pancreas, and constipation. The atrophies are chronic. LABORATORY DATA: Showed a WBC of 9.1, hemoglobin 9.9, platelet count 258. BUN and creatinine are elevated, but this patient has a history of COPD. ProBNP 6384, which is around the same compared with the last admission, and urinalysis showed numerous white blood cells and red blood cells as well. As per the patient she has been [facility] a [facility] as well. She feels really weak. She will be admitted to the [facility] unit. She will be placed on broad-spectrum antibiotics renally dosed, and some of her medications, but she does not remember all her medications. So, we will need to call either her [facility] or the pharmacy. We will continue with telemetry. REVIEW OF SYSTEMS: This patient is a poor historian. All 14 points of review of systems were reviewed, all of them negative except as per HPI. PAST FAMILY HISTORY: Mother and father with coronary artery disease and diabetes. The patient has a brother with epilepsy, and also a brother who with an SD. SOCIAL HISTORY: The patient is coming from [facility]. No alcohol, no drugs, no smoking history. SURGICAL HISTORY: It looks like she had a hysterectomy, tonsillectomy, right knee surgery and hernia repair. PHYSICAL EXAMINATION: VITAL SIGNS: Temperature 97.6, pulse 60, respiratory rate 12, blood pressure 147/59, oxygen saturation 99 on room air. HEENT: Head normocephalic. No trauma. PERRLA. NECK: Supple. No JVD. Central trachea. CHEST: Crackles at the bases with some rhonchi as well, prolonged expiratory phase. No wheezing. ABDOMEN: Soft. Generalized tenderness to palpation mostly on the right side. No signs of peritoneal irritation, questionable CVA tenderness on the left side. EXTREMITIES: Some edema. No clubbing, no cyanosis. NEUROLOGICAL: The patient is sleepy but arousable. She is following commands on and off. She is able to say her name, date of . She knows she is in the hospital, [facility], but she does not remember what year it is. ASSESSMENT AND PLAN: 1. Possible syncopal episodes. This patient has images that showed pneumonia and also urinary tract infection. She has a chronic indwelling catheter, and she has been having urinary tract infections before. I will put this patient on broad-spectrum antibiotics, and I will follow with this patient closely. 2. Pneumonia. Continue with broad-spectrum antibiotics. I will also start this patient on some breathing treatments. As per the patient, she has been coughing frequently. 3. Bilateral lower lobe pneumonia. Continue broad-spectrum antibiotics, breathing treatments and oxygen as needed. 4. Urinary tract infection. This seems to be chronic. I will ask to exchange the urinary catheter. It looks like she has an indwelling catheter that has been there for some years. 5. Altered mental status. This patient does not remember the year. I do not have a medical history of dementia so far, but we will monitor this closely. 6. Diabetes. Continue pattern blood sugar and sliding scale insulin. 7. Hypothyroidism. Continue with levothyroxine. 8. Further recommendations pending hospital course. cc: John Dupree MD
[2019-05-24] MEDS: MIRALAX PO SCH (21:32)
[2019-05-24] MEDS: PRILOSEC PO SCH (21:32)
[2019-05-24] MEDS: PHOSLO PO SCH (21:32)
[2019-05-24] MEDS: HEPARIN SUBQ SCH (21:33)
[2019-05-24] MEDS: HUMULIN R SUBQ SCH (21:33)
[2019-05-24] MEDS ORDERED: VANCOMYCIN 1 GM/NS 1 GM/250 ML IVPB IV SCH (22:00)
[2019-05-25] MEDS: DUONEB (A & A) INH SCH ×6 (03:12→23:10)
[2019-05-25 06:00] LABS: HEMATOCRIT 29.4 % (37.0-47.0); HEMOGLOBIN 9.5 g/dL (12.0-16.0)
[2019-05-25 06:01] LABS: BASO# 0.02 X1000 (0.0-0.2); BASO% 0.2 % (0.0-0.8); EOS# 0.25 X1000 (0.0-0.7); IMM GRAN% 1.2 % (0.0-0.5); LYMPH# 0.91 X1000 (1.2-3.4); LYMPH% 10.8 % (20.5-51.1); MCH 27.9 PG (27-31); MCHC 32.3 g/dL (33-37); MCV 86.5 FL (81-99); MONO# 0.63 X1000 (0.11-0.59); MONO% 7.5 % (1.7-9.3); MPV 9.8 FL (7.4-10.4); NEUT# 6.49 X1000 (1.4-6.5); NEUT% 77.3 % (42.2-75.2); PLT 278 X1000 (130-400); RDW 15.4 % (11.5-14.5)
[2019-05-25] MEDS: HUMULIN R SUBQ SCH ×4 (06:10→20:37)
[2019-05-25 06:58] LABS: ALB/GLOB RATIO 1.1; ALBUMIN 3.1 g/dL (3.5-5.0); CALCIUM 8.5 mg/dL (8.8-10.2); CREATININE 3.4 mg/dL (0.5-0.9); MAGNESIUM 1.8 mg/dL (1.5-2.7); POTASSIUM 4.1 mmol/L (3.5-5.1); TOTAL BILIRUBIN 0.2 mg/dL (0.20-1.00); TOTAL PROTEIN 5.8 g/dL (6.3-8.3)
--- NOTE | 2019-05-25 07:30 | Diag Imaging Result Doc PS360 ---
EXAM: CHEST-PORTABLE 05/25/2019 HISTORY: SOB TECHNIQUE: AP portable at 0629 COMMENT: There are alveolar opacities present in the right lower lobe which have worsened since 05/24/2019. There is generalized reticulonodular interstitial opacity. The heart size is slightly enlarged. IMPRESSION: Worsening pulmonary edema versus pneumonia. Electronically signed by Rodolfo Osborne 05/25/2019 7:27 AM
[2019-05-25] MEDS ORDERED: NS 2,000 ML MISC PRN (07:50)
[2019-05-25] MEDS: ZOSYN 2.25 GM in NS 50 ML IV SCH ×2 (08:31→20:18)
[2019-05-25] MEDS: NORVASC PO SCH (08:32)
[2019-05-25] MEDS: COLACE PO SCH (08:32)
[2019-05-25] MEDS: MIRALAX PO SCH ×2 (08:32→20:19)
[2019-05-25] MEDS: PRILOSEC PO SCH ×2 (08:32→20:18)
[2019-05-25] MEDS: PHOSLO PO SCH ×3 (08:32→17:20)
[2019-05-25] MEDS: ROCALTROL PO SCH (08:32)
[2019-05-25] MEDS: HEPARIN SUBQ SCH ×2 (08:32→20:18)
[2019-05-25] MEDS ORDERED: HEPARIN IV PRN (10:59)
--- NOTE | 2019-05-25 12:56 | PROGRESS NOTE ---
DATE: 05/25/2019 SUBJECTIVE: This patient seems to be more awake, more alert. Today, she is oriented x3. She does have generalized weakness. She is still coughing and having some abdominal discomfort, but no signs of peritoneal irritation. X-ray showed worsening of the pneumonia with some pulmonary edema. I will continue with broad spectrum antibiotics. OBJECTIVE: Vital Signs: Temperature 97.9 degrees, pulse 86, respiratory rate 17, blood pressure 134/43, oxygen saturation 99 on room air. HEENT: Head normocephalic, no trauma. PERRLA. Neck: Supple. No JVD. No masses. Central trachea. Chest: Crackles and some rhonchi as well as mostly at the bases, prolonged expiratory phase, no wheezing. Abdomen: Soft, generalized tenderness to palpation, mostly on the right side. No signs of peritoneal irritation. I do believe it is much better compared with yesterday. Extremities: Some edema. No clubbing, no cyanosis. Neurological: This patient is awake. She is alert. Her answers are slow, but appropriate today. She is able to say her name, date of , location, and date. She is able to move all 4 extremities, but she does have generalized weakness. LABORATORY: WBC 8.4, hemoglobin 9.5, hematocrit 29.4, platelets 278,000. Sodium 134, potassium 4.1, chloride 96, bicarbonate 26, BUN 40, creatinine 3.4, glucose 179, calcium 8.5, magnesium 1.8, AST 10, ALT 8, alkaline phosphatase 74, albumin 3.1. ASSESSMENT AND PLAN: 1. Possible syncopal episodes. This patient today is not quite sure about the syncopal episodes, but yesterday she told me that probably she has been having some. She has a chronic indwelling catheter, and she has been having urinary tract infections before. She has been placed on broad-spectrum antibiotics. I will follow this patient closely. 2. Pneumonia. Continue broad-spectrum antibiotics. She has still continued coughing but feeling better. Continue breathing treatment and oxygen as needed. 3. Urinary tract infection. This seems to be chronic. We will change the urinary catheter. 4. Altered mental status. She seems to be doing better today. I am not quite sure if this patient has a history of dementia. We will monitor. 5. Diabetes. Continue with the same management. 6. Hypothyroidism. Continue with levothyroxine. cc: John Dupree MD
--- NOTE | 2019-05-25 13:57 | NEPHROLOGY CONSULTATION ---
DATE: 05/25/2019 REASON FOR ADMISSION: Weakness, pulmonary edema. REASON FOR CONSULTATION: Assist with management, ESRD. CONSULTING PHYSICIAN: Dr. Rea. HISTORY OF PRESENT ILLNESS: This is a 74-year-old female, known to our service for end-stage renal disease on hemodialysis on a Monday, Monday, Monday schedule. She came into the emergency room on day of admission secondary to generalized weakness and right- sided abdominal pain for several days. She had workup in the ER which indicated some chronic bronchitis and a bronchopneumonia of the lung bases as well as some pulmonary edema. She was admitted to the hospital for further workup and treatment. We have been asked to see her and assist with management. I did have the dialysis nurses go ahead and dialyze her yesterday. Unfortunately, the patient refused to stay on for her full treatment and came off the treatment after 2 hours. When I see her today, she is in no acute distress and is able to give me appropriate history. PAST MEDICAL HISTORY: End-stage renal disease, COPD, CHF, diabetes, history of DVT, recurrent UTI, indwelling catheter, hypothyroidism, history of anemia, hyperlipidemia. SURGICAL HISTORY: Tubal ligation, hysterectomy, right knee surgery, tonsillectomy, hernia repair, tunneled dialysis catheter. ALLERGIES: None. HOME MEDICATIONS: Prilosec, Synthroid, Coreg, Levemir, vitamin D2, Norvasc, Rocaltrol, PhosLo, fluoxetine, Colace, hydrocodone, acetaminophen, NovoLog, albuterol, vitamin B12, Eliquis, aspirin, Omnicef, guaifenesin. SOCIAL HISTORY: She lives at [facility]. No ETOH, tobacco or illicit drug use. FAMILY HISTORY: Coronary artery disease, diabetes, epilepsy. REVIEW OF SYSTEMS: Abdominal pain, some shortness of breath. PHYSICAL EXAMINATION: Vital Signs: Temperature 97.9 degrees, pulse 66, respiratory rate 19, blood pressure 134/43. Intake not measured. Output 650 mL plus UF on dialysis that has not been charted yet. General: This is an elderly, chronically ill-appearing female, resting in bed. She is awake and alert. She does not appear in distress. HEENT: Normocephalic, atraumatic. ACOSTA. Oral mucosa moist. Neck: Supple with trace JVD. Cardiovascular: Regular rate and rhythm. Pulmonary: She has some decreased breath sounds bilaterally, particularly posterior. She has some rales to the left. Abdomen: Soft. Positive bowel sounds. Genitourinary: Not inspected. Extremities: No clubbing, cyanosis. Trace to 1+ edema. Integumentary: Skin is pale, warm, and dry. Neurologic: Grossly nonfocal. LABORATORY DATA: WBC of 8.4, hemoglobin 8.5. Sodium 134, potassium 4.1, CO2 26, BUN 40, creatinine 3.6. IMAGING: Chest x-ray with worsening pulmonary edema versus pneumonia. ASSESSMENT AND PLAN: 1. Chronic kidney disease 5D with bronchopneumonia plus-minus pulmonary edema. The patient did not complete a full treatment yesterday and chest x-ray shows worsening markings. We will sequential her for 4 L today as tolerated. Plan for next routine dialysis on Monday. I discussed this with the patient. She is in agreement. 2. Pneumonia on appropriately dosed antibiotics. She remains on Piperacillin, tazobactam and vancomycin. Cultures pending. 3. Question of syncopal episodes. Unclear etiology. Monitor closely. 4. Chronic urinary tract infection. Again, on broad-spectrum antibiotic therapy. Dictated by BENJAMIN Rand for Khai Hannon MD cc: Khai Hannon MD [facility]
[2019-05-25] MEDS ORDERED: VANCOMYCIN 1 GM/NS 1 GM/250 ML IVPB IV ONE (17:00)
[2019-05-26] MEDS: DUONEB (A & A) INH SCH ×6 (03:42→22:30)
[2019-05-26] MEDS: HUMULIN R SUBQ SCH ×4 (06:18→20:14)
[2019-05-26 07:23] LABS: CALCIUM 9.4 mg/dL (8.8-10.2); CREATININE 4.2 mg/dL (0.5-0.9)
[2019-05-26] MEDS: COLACE PO SCH (08:20)
[2019-05-26] MEDS: SYNTHROID PO SCH (08:20)
[2019-05-26] MEDS: ZOSYN 2.25 GM in NS 50 ML IV SCH ×2 (08:20→20:12)
[2019-05-26] MEDS: HEPARIN SUBQ SCH (08:20)
[2019-05-26] MEDS: PRILOSEC PO SCH ×2 (08:20→20:13)
[2019-05-26] MEDS: ROCALTROL PO SCH (08:20)
[2019-05-26] MEDS: NORVASC PO SCH (08:20)
[2019-05-26] MEDS: PHOSLO PO SCH ×3 (08:20→16:13)
[2019-05-26] MEDS: MIRALAX PO SCH ×2 (08:21→20:13)
[2019-05-26] MEDS: ASPIRIN EC PO SCH (09:15)
[2019-05-26] MEDS: COREG PO SCH ×2 (09:15→20:13)
[2019-05-26] MEDS: ELIQUIS PO SCH ×2 (09:15→20:13)
--- NOTE | 2019-05-26 09:41 | NEPHROLOGY PROGRESS NOTE ---
DATE: 05/26/2019 SUBJECTIVE: The patient is sitting up in bed. She has been able to eat breakfast. Her mentation is much closer to the baseline that I have experienced with her over the course of time. OBJECTIVE: Vital Signs: Temperature 98.1 degrees, pulse 63, respiratory rate 18, blood pressure 135/53. Intake 540 mL, output 3.4 L, and 2.1 of this was UF removal on dialysis yesterday. General: This is an elderly female, sitting up in bed, awake and alert. No acute distress. HEENT: Normocephalic, atraumatic. ACOSTA. Neck: Supple. There is no JVD. Cardiovascular: Regular rate and rhythm. Pulmonary: She is clear bilaterally today. She has no increased work of breathing and has equal excursion. Abdomen: Soft with positive bowel sounds. : She has an indwelling catheter. Her urine is clear, pale-yellow today. Extremities: No clubbing, cyanosis. She has trace pretibial edema. Integumentary: Skin remains pale, warm, and dry. Neurologic: Grossly nonfocal. The patient does have a history of some baseline dementia. LABORATORY DATA: Sodium 133, potassium 5.0, CO2 of 27, creatinine 4.2. ASSESSMENT AND PLAN: 1. Chronic kidney disease 5D with bronchopneumonia, plus or minus pulmonary edema. We did an extra dialysis treatment on her yesterday for ultrafiltration removal only. The patient's next regular dialysis treatment will be on Monday morning. We will check a chest x-ray in the morning to determine how aggressive we need to be as far as fluid removal versus her dry weight. 2. Medication review. No changes needed to her current regimen. 3. Question of syncopal episodes. Being followed up by primary. She did not have any reported episodes during her dialysis treatment yesterday. 4. Chronic urinary tract infection. She is on broad-spectrum antibiotic therapy already. Her urine culture indicated no growth on preliminary. Blood cultures thus far have been negative after 48 hours. Dictated by BENJAMIN Rand for Khai Hannon MD cc: Khai Hannon MD
[2019-05-26] MEDS: LEVEMIR SUBQ SCH ×2 (09:48→20:13)
[2019-05-26] MEDS ORDERED: INSULIN PEN NEEDLES ONE (09:55)
--- NOTE | 2019-05-26 12:45 | PROGRESS NOTE ---
DATE: 05/26/2019 SUBJECTIVE: This patient seems to be doing better today. She is oriented x3. She has been working with physical therapy. She is still coughing a little bit and having some abdominal discomfort. An x-ray will be repeated tomorrow morning and this patient will have dialysis tomorrow as well. OBJECTIVE: Vital Signs: Temperature 98.6 degrees, pulse 62, respiratory rate 18, blood pressure 125/57, oxygen saturation 97% on room air. HEENT: Head normocephalic. No trauma. PERRLA. Neck: Supple. No JVD. No masses. Central trachea. Chest: Some crackles and rhonchi at the bases. Prolonged expiratory phase. No wheezing. Abdomen: Soft. Generalized tenderness to palpation, mostly on the right side. No signs of peritoneal irritation. Extremities: Trace edema. No clubbing, no cyanosis. Neurological Examination: This patient is awake. She is following commands. She is answering to my questions. Her answers are slow but appropriate. She moves all 4 extremities. Laboratory: Sodium 133, potassium 5, chloride 96, bicarbonate 27, BUN 48, creatinine 4.2, glucose 339, calcium 9.4. ASSESSMENT AND PLAN: 1. Possible syncopal episodes. The patient is not quite sure if she has been having syncope before. She has a chronic indwelling catheter and she has been having some urinary tract infection also before. She has been placed on broad-spectrum antibiotics. We will continue to monitor. 2. Pneumonia. Continue with broad-spectrum antibiotics. 3. Urinary tract infection, which is chronic, as per #1. 4. Altered mental status. She seems to be doing better. 5. Diabetes. I will put this patient back on her home medications. The blood sugar is elevated. 6. Hypothyroidism. Continue with levothyroxine. 7. Chronic deep venous thrombosis. I will put this patient back on Eliquis. cc: John Dupree MD
--- NOTE | 2019-05-26 15:12 | CONSULTATION ---
DATE OF CONSULTATION: 05/26/2019 CHIEF COMPLAINT: Suprapubic tube exchange. HISTORY OF PRESENT ILLNESS: Ms. Orellana is a 74-year-old with end-stage renal disease on dialysis, congestive heart failure, COPD, diabetes, prior DVT, neurogenic bladder with suprapubic tube, who presented to the emergency room on 05/24/2019 with generalized weakness and right-sided abdominal pain for several days. This was associated with nausea, but no vomiting. The patient has been having some diarrhea and loose stools. She denies any fevers or chills. The patient has a history of indwelling suprapubic tube, which was placed back in 06/[address] Orta. It sounds like previously, the patient had indwelling catheter in her urethra, as well as had tried clean intermittent catheterization. The patient presents in consult for exchange of her suprapubic tube. The patient's urinalysis on presentation showed no evidence of bacteria, and urine culture is showing no growth. The patient had a CT scan, which showed what appeared to be bronchopneumonia in the lung bases, as well as inflammation of the bladder and renal collecting system, concern for possible UTI. The patient has atrophy of her right kidney, with no obvious stranding around either collecting system. PAST MEDICAL HISTORY: 1. End-stage renal disease, on dialysis. 2. Congestive heart failure. 3. COPD. 4. Diabetes. 5. Prior DVTs. 6. Neurogenic bladder with suprapubic tube in place. PAST SURGICAL HISTORY: 1. Hysterectomy. 2. Tonsillectomy. 3. Right knee surgery. 4. Hernia repair. 5. Suprapubic tube placement. 6. Tunneled dialysis catheter. HOME MEDICATIONS: 1. Prilosec. 2. Synthroid. 3. Coreg. 4. Levemir. 5. Vitamin D. 6. Norvasc. 7. Rocaltrol. 8. PhosLo. 9. Fluoxetine. 10. Colace. 11. Hydrocodone. 12. NovoLog. 13. Albuterol. 14. Vitamin B12. 15. Eliquis. 16. Aspirin. 17. Omnicef. 18. Guaifenesin. ALLERGIES: None. SOCIAL HISTORY: The patient lives at [facility]. Denies alcohol, tobacco, or illicit drug use. FAMILY HISTORY: Denies family history of malignancy. REVIEW OF SYSTEMS: A 12-point review of systems was performed with all pertinent positives and negatives in the HPI. PHYSICAL EXAMINATION: Vital Signs: Temperature 98.6, heart rate 62, blood pressure 125/57, oxygen saturation 97% on room air. General: No acute distress. Resting comfortably in bed. Alert and oriented x3. HEENT: Normocephalic, atraumatic. Pupils equal, round, reactive to light. Neck: Trachea midline. No palpable masses. Chest: Slight distant breath sounds with evidence of rhonchi. No obvious wheezing. Abdomen: Soft, nontender, nondistended. No palpable hepatosplenomegaly. : No suprapubic tenderness. No CVA tenderness. Suprapubic tube in place, draining clear-yellow urine. Extremities: Moving all extremities. Neurologic: Gross motor and sensory intact. SKIN: No skin lesions or rashes. IMAGING AND LABORATORY DATA: Labs from 05/25/2019 showed white blood cell count of 8.4, hemoglobin 9.5, hematocrit 29.4, platelets 278,000. Sodium from today 137, potassium 5, chloride 96, bicarb 27, BUN 48, creatinine 4.2, glucose 339. UA from presentation showed 50 of protein, 102 of glucose, negative ketones, large amount of blood, large amount of leukocytes, too numerous count white bloods and RBCs, no epithelial cells, and no bacteria. CT abdomen and pelvis, images were reviewed, which showed relatively normal collecting systems. The patient has a right atrophic kidney, as well as inflammation of the bladder, likely related from long-standing neurogenic bladder. The patient has undergone cystoscopy approximately [address] Orta. No other evidence of obstruction or renal pathology. ASSESSMENT AND PLAN: Ms. Orellana is a 74-year-old with chronic obstructive pulmonary disease, congestive heart failure, end-stage renal disease on dialysis, previous deep venous thromboses, hypothyroidism, and neurogenic bladder with suprapubic tube placement, who presents in consultation for exchange of suprapubic tube. The patient has had it for at least 1 year, and has had indwelling catheters in for a number of years now, per her report. The patient was diagnosed with possible syncope and weakness. The patient's urine culture is final negative with no bacteria present. The patient had no bacteria on urinalysis from presentation. Uncertain if her symptoms are related to urinary tract infection, but seemingly it is unrelated as both are negative. I exchanged her suprapubic tube today by removing her 16-Greenlandic suprapubic tube, and exchanging it for a 16-Green[place]ic Latex catheter that inserted easily under sterile technique. The patient had minimal drainage in her bladder as she makes minimal fluid daily. I checked on her 30 minutes later, and there was approximately 20 mL of fluid that have drained into the catheter tubing. This was placed to [employer] and is draining effectively. Will continue with catheter changes monthly. She says the last time it was changed was approximately 1 month ago at her facility. The patient's renal function is normal with no obvious signs of obstruction of the kidneys on recent CT scan. Will continue to monitor from a urologic standpoint. Please call with questions or concerns. cc: Salvatore Davidson MD MTDD
[2019-05-27] MEDS: DUONEB (A & A) INH SCH ×3 (03:30→11:34)
[2019-05-27 05:33] LABS: BASO# 0.01 X1000 (0.0-0.2); BASO% 0.1 % (0.0-0.8); EOS# 0.32 X1000 (0.0-0.7); EOS% 4.8 % (0.0-10.0); HEMOGLOBIN 9.7 g/dL (12.0-16.0); IMM GRAN# 0.04 X1000 (0.0-0.04); IMM GRAN% 0.6 % (0.0-0.5); LYMPH# 1.05 X1000 (1.2-3.4); LYMPH% 15.7 % (20.5-51.1); MCH 27.9 PG (27-31); MCHC 32.3 g/dL (33-37); MCV 86.2 FL (81-99); MONO# 0.47 X1000 (0.11-0.59); MPV 9.4 FL (7.4-10.4); NEUT# 4.78 X1000 (1.4-6.5); NEUT% 71.8 % (42.2-75.2); PLT 279 X1000 (130-400); RBC 3.48 XMIL (4.2-5.4); WBC 6.67 X1000 (4.8-10.8)
[2019-05-27] MEDS: HUMULIN R SUBQ SCH ×2 (06:01→12:57)
[2019-05-27 06:08] LABS: ALBUMIN 3.7 g/dL (3.5-5.0); CALCIUM 9.9 mg/dL (8.8-10.2); CREATININE 4.7 mg/dL (0.5-0.9); PHOSPHORUS 3.8 mg/dL (2.7-4.5); POTASSIUM 5.4 mmol/L (3.5-5.1)
[2019-05-27] MEDS ORDERED: TIGHT: 0.2 ML/HR FOR DIALYSIS MISC PRN (06:15)
[2019-05-27] MEDS ORDERED: HEPARIN IV PRN (06:15)
[2019-05-27] MEDS ORDERED: NS 2,000 ML MISC PRN (06:15)
--- NOTE | 2019-05-27 06:44 | Diag Imaging Result Doc PS360 ---
EXAM: CHEST-1 VIEW HISTORY: pulmonary edema TECHNIQUE: Chest single view COMPARISON: 05/25/2019 FINDINGS: The lungs are well expanded. The heart is mildly enlarged. The vessels are distended. Interval decrease in the right basilar infiltrates. No effusion identified. IMPRESSION: Overall interval improvement Electronically signed by Nico Oconnell 05/27/2019 6:42 AM
--- NOTE | 2019-05-27 09:34 | DISCHARGE SUMMARY ---
ADMISSION DATE: 05/24/2019 DISCHARGE DATE: 05/27/2019 DISCHARGE DIAGNOSES: 1. Altered mental status, resolved. 2. Possible syncopal episodes before admission. 3. Pneumonia. 4. Urinary tract infection which is chronic. 5. Diabetes. 6. Hypothyroidism. 7. Chronic deep venous thrombosis. 8. Neurogenic bladder with suprapubic tube in place. 9. History possible history of chronic obstructive pulmonary disease. 10. End-stage renal disease on dialysis. PROCEDURES PERFORMED: 1. Chest x-ray dated 05/24/2019 impression: Pulmonary edema with small infiltrates in the right lung base. 2. Head CT dated 05/24/2019 impression: No acute disease or change from prior. 3. Abdomen and pelvis CT scan impression: Chronic bronchitis and bronchopneumonia in the lung bases, severe inflammation in the urinary bladder and renal collecting system compatible with urinary tract infection, severe atrophy of the right kidney, severe chronic atrophy of the pancreas, constipation. 4. Chest x-ray dated 05/25/2019 impression: Worsening pulmonary edema versus pneumonia. 5. Chest x-ray dated 05/27/2019 impression: Overall interval improvement. CONSULTS: Nephrology department Dr. Hannon. Urology Department Dr. Davidson. HOSPITAL COURSE: A 74-year-old female with a past medical history of end-stage renal disease on dialysis, congestive heart failure, chronic obstructive pulmonary disease, diabetes, previous deep venous thrombosis, neurogenic bladder with suprapubic catheter, admitted on 05/24/2019. She presented to the emergency department complaining of generalized weakness, right- sided abdominal pain for a few days associated with nausea, no vomiting. Also she has been having some confusion and, as per the patient, probably she has been passing out as well. As per the patient, she had some diarrhea a few days ago, but not anymore. She denied fever or chills. No chest pain or shortness of breath. As per the patient, she has been coughing but nothing came out when she coughs. Abdomen and pelvis CT showed chronic bronchitis and bronchopneumonia in the bases, severe inflammation of the urinary bladder and renal collecting system compatible with urinary tract infection, severe atrophy of the right kidney, severe atrophy of the pancreas and constipation but these atrophies are chronic. She was admitted to the [facility] unit. Nephrology department was consulted and they started this patient on dialysis. Also she was started on breathing treatment and antibiotics immediately to treat the infection. Blood culture and urine culture did not show any pathogen. She has been dialyzed without any problem. At the beginning she was a little bit confused and she wanted to go back to her custodial, but she has been completely alert, awake and oriented x3 for the past 3 days, since Monday. We also requested an evaluation by urology department to replace the suprapubic catheter since this patient has a urinary tract infection. It has been replaced already and she will need to follow up with her urologist as an outpatient and follow their recommendations. Since she is getting better, she has been walking and she is more stable. She will be discharged back to her custodial. She will need to complete 10 more days of antibiotics after dialysis. That will be around 5 more doses after dialysis, and with that treatment we will complete 14 days of treatment. She will need to follow up with her primary care doctor in 1 week, urology department and continue with dialysis as scheduled. PHYSICAL EXAMINATION: Vital Signs: Temperature 98.3 degrees, pulse 60, respiratory rate 15, blood pressure 153/53, oxygen saturation 97% on room air. HEENT: Head normocephalic. No trauma. PERRLA. Neck: Supple. No JVD. No masses. Central trachea. Chest: She has some crepitus at the bases with some rales as well. Abdomen: Soft, nontender, nondistended. No hepatosplenomegaly. Suprapubic catheter in place. Extremities: No edema, no clubbing, no cyanosis. Neurological: The patient is alert and oriented x3. No focal deficits. LABORATORY: WBC 6.6, hemoglobin 9.7, hematocrit 30, platelets 279,000. Sodium 134, potassium 5.4, chloride 97, bicarbonate 24, BUN 53, creatinine 4.7, glucose 94, calcium 9.9, phosphorus 3.8, albumin 3.7. DISCHARGE MEDICATIONS: 1. Acetaminophen 650 mg p.o. q.6 hours as needed. 2. Albuterol 2.5 mg inhaler q.4 hours as needed for shortness of breath. 3. Amlodipine 10 mg p.o. q.a.m. 4. Eliquis 5 mg p.o. b.i.d. 5. Aspirin 81 mg p.o. daily. 6. Calcitriol 0.25 mcg p.o. q.a.m. 7. Carvedilol 25 mg p.o. b.i.d. 8. Calcium acetate 2 caps of 667 mg t.i.d. 9. Dextrose/glucose gel as directed. 10. Docusate 2 caps p.o. q.a.m. 11. Vitamin D 5000 units p.o. q.7 days. 12. Fluoxetine 10 mg p.o. daily. 13. Glucagon as directed q.50 minutes intramuscular as needed for hypoglycemia. 14. Mucus chest congestion 100 mg p.o. b.i.d. 15. NovoLog as directed. 16. Insulin detemir 38 units subcutaneous b.i.d. 17. Probiotic 1 capsule p.o. daily. 18. Levothyroxine 50 mcg p.o. at bedtime. 19. Lovastatin 20 mg p.o. at bedtime. 20. Omeprazole 20 mg p.o. at bedtime. TIME SPENT: Time discharging this patient 35 minutes. cc: John Dupree MD
--- NOTE | 2019-05-27 09:43 | NEPHROLOGY PROGRESS NOTE ---
DATE: 05/27/2019 SUBJECTIVE: Ms. Orellana is resting quietly in bed. States that she is feeling well, hopes to go home today. LABORATORY DATA: Sodium 134, potassium 5.4, chloride 97, CO2 of 24, BUN 53, creatinine 4.7, glucose 94, anion gap is 13, calcium 9.9. White count 6.67, hemoglobin 9.7, hematocrit 30, platelet count 279,000. PHYSICAL EXAMINATION: Most Recent Vital Signs: Her last temperature is 98.3 degrees, blood pressure 153/53, heart rate is 63, respirations are 16. She is on room air. Last recorded saturation is 100%. She has had 240 in, 1050 out to Snell catheter. General: This is a 74-year- old white female, resting quietly in bed. She is in no acute distress. Skin: Warm and dry. HEENT: Normocephalic, atraumatic. Conjunctiva is pale pink. She has ACOSTA. Mucous membranes are dry. Neck: Supple. Trachea midline. No evidence of JVD. Cardiovascular: She is regular rate and rhythm. No gallop appreciated. Lungs: Clear to auscultation bilaterally. Equal excursion on room air. Abdomen: Large, round, soft, nontender. Positive bowel sounds. Genitourinary: Not inspected. Snell catheter is in place with adequate urine out, dialysis assist. Extremities: No clubbing or cyanosis. No edema present. Integumentary: Skin is warm and dry without rashes or lesions. Neurological: She is alert and oriented x3. ASSESSMENT AND PLAN: 1. Chronic kidney disease stage 5D. The patient is due for her routine dialysis treatment today. We will place her on a 2-potassium bath. She is to dialyze for 3.5 hours. We will attempt to pull the patient to her outpatient dry weight. 2. Electrolytes and acid-base balance. These are in target. 3. Anemia. This is low, but stable. 4. Bronchopneumonia. The patient is on renal dosed antibiotics. Again, it is noted that the blood cultures thus far have been negative. Urine culture is negative. 5. Questionable syncopal episode. She has not had any during her hospital stay. I would like to thank you for allowing us to follow with this patient. Dictated by BENJAMIN Alves for Khai Hannon MD Face to face encounter, data reviewed, discussed with Angel Tian on 05/27/19. I agree with the above assessment and plan of care. cc: BENJAMIN Alves MD [facility]
[2019-05-27] MEDS: PHOSLO PO SCH ×3 (12:45→12:58)
[2019-05-27] MEDS: COREG PO SCH (12:46)
[2019-05-27] MEDS: PRILOSEC PO SCH (12:47)
[2019-05-27] MEDS: NORVASC PO SCH (12:48)
[2019-05-27] MEDS: COLACE PO SCH (12:48)
[2019-05-27] MEDS: ASPIRIN EC PO SCH (12:50)
[2019-05-27] MEDS: ELIQUIS PO SCH (12:50)
[2019-05-27 12:54] VITALS: BP 165/52
[2019-05-27] MEDS: MIRALAX PO SCH (12:57)
[2019-05-27] MEDS: ROCALTROL PO SCH (12:57)
[2019-05-27] MEDS: SYNTHROID PO SCH (13:05)
[2019-05-27] MEDS: ZOSYN 2.25 GM in NS 50 ML IV SCH (13:10)
[2019-05-27] MEDS: LEVEMIR SUBQ SCH (13:27)
[2019-05-27] MEDS ORDERED: VANCOMYCIN 1 GM/NS 1 GM/250 ML IVPB IV ONE (17:00)
== END 2019-05-27 14:28 | DRG 193 ==
LOC: SUPCPDRO → ED 10:58 → 3S 17:21
PROVIDERS: ATTEND Internal Medicine
CPT/HCPCS: 70450; 71010; 71020; 71045; 71046; 74177; 80048; 80053; 80069; 81001; 82948; 83735; 83880; 84484; 85025; 85610; 85730; 87040; 87088; 93005; 94640; 94761; 96365; 96367; 96375; 97161; 99285; A9270; J0696; J1644; J2405; J2543; J3370; J7030; Q9967; XXXXX

== ENCOUNTER 2020-01-10 06:25 | Inpatient (IN) ==
[2020-01-10] MEDS ORDERED: NS 1,000 ML IV ONE ×2 (06:57→07:21)
[2020-01-10] MEDS ORDERED: NS 1,000 ML ONE (07:03)
--- NOTE | 2020-01-10 07:14 | Diag Imaging Result Doc PS360 ---
EXAM: CHEST-1 VIEW HISTORY: SEPSIS ALERT TECHNIQUE: Single view COMPARISON: 05/27/2019 FINDINGS: The lungs are well expanded. There are increased interstitial markings throughout both lungs. These are most prominent in the left base. The heart is mildly prominent. No pleural effusions identified. IMPRESSION: There is likely a combination of fibrosis and pneumonia. Electronically signed by Nico Oconnell 01/10/2020 7:12 AM
[2020-01-10 07:20] LABS: URINE SOURCE CATH
[2020-01-10 07:23] LABS: INR 2.95; PROTIME 31.6 Seconds (11.0-16.0)
--- NOTE | 2020-01-10 07:23 | PROVIDER DOCUMENTATION ---
HPI-General Adult - General Chief Complaint: Fever Stated Complaint: fever, fall Time Seen by Provider: 01/10/20 07:01 Source: assisted records Allergies/Adverse Reactions: Patient Allergies Allergy/AdvReac Type Severity Reaction Status Date / Time No Known Allergies Allergy Verified 11/29/19 15:52 Home Medications: Home Medication List Medication Instructions Recorded Confirmed Last Taken Type LOVAstatin [Mevacor] 20 mg PO HS 10/06/16 05/27/19 02/01/18 22:00 History Levothyroxine [Synthroid] 50 microgm PO QHS 10/06/16 05/24/19 02/01/18 22:00 His tory Omeprazole [Prilosec] 20 mg PO QHS 10/06/16 05/24/19 02/01/18 22:00 History Carvedilol [Coreg] 25 mg PO BID #0 tablet 10/18/17 05/24/19 02/02/18 10:00 Rx Insulin Detemir [Levemir Flextouch] 38 units SQ BID 12/01/17 05/24/19 06/27/18 06:00 History 20 Ergocalciferol (Vitamin D2) 50,000 unit PO Q7D 01/15/18 05/24/19 01/29/18 10:00 History [Vitamin D] Amlodipine [Norvasc] 10 mg PO QAM 02/03/18 05/27/19 02/02/18 10:00 History Calcitriol [Rocaltrol] 0.25 microgm PO QAM 02/03/18 05/24/19 02/02/18 10:00 History Calcium Acetate [Phoslo] 2 cap PO TID 02/03/18 05/24/19 02/02/18 17:00 History Fluoxetine HCl 10 mg PO DAILY 02/03/18 05/24/19 02/02/18 10:00 History Dextrose [Glucose Gel] 1 dose PO ORDERED PRN 06/22/18 05/27/19 Unknown History Docusate Sodium [Colace] 2 cap PO QAM 06/22/18 05/27/19 Unknown History Glucagon,Human Recombinant 1 mg IM Q15M PRN 06/22/18 05/27/19 Unknown History [Glucagon Emergency Kit] Insulin Aspart [Novolog] 1 dose SQ DIRECTED PRN 06/22/18 05/24/19 Unknown History L.acidoph,Paracasei, B.lactis 1 cap PO DAILY 06/22/18 05/27/19 Unknown History [Probiotic] Albuterol [Albuterol Neb] 2.5 mg INH Q4H PRN PRN 05/24/19 05/24/19 Unknown History Apixaban [Eliquis] 5 mg PO BID 05/24/19 05/24/19 Unknown History Aspirin EC 81 mg PO DAILY 05/24/19 05/24/19 Unknown History Guaifenesin [Mucus-Chest 100 mg PO BID 05/24/19 05/24/19 Unknown History Congestion] Acetaminophen [Tylenol] 650 mg PO Q6H PRN PRN tab 05/27/19 Unknown Rx Docusate Sodium [Colace] 100 mg PO DAILY #30 cap 11/29/19 Unknown Rx Magnesium Citrate [Citrate of 300 ml PO ONCE #1 bottle 11/29/19 Unknown Rx Magnesia] Sulfamethoxazole/Trimethoprim 1 ea PO BID #14 tab 11/29/19 Unknown Rx [Bactrim Ds Tablet] - History of Present Illness -Gen Adult Nature of Presenting Problems: assisted patient from [facility] presented with fever and lethargy, history of UTI and concerned of sepsis, patient was responsive to pain stimuli only, no further information was obtained, history was seen in the nurse note, Severity: reports: moderate Onset/Duration: reports: unsure Timing: reports: still present Context/Activities at Onset: reports: other (history of uti) Modifying Factors: improves with: nothing Associated Symptoms: reports: fever/chills, other (lethargy) Similar Symptoms Previously?: Yes Review of Systems - Adult - REVIEW OF SYSTEMS - ADULT ROS:: unobtainable per condition Constitutional: reports: fever, fatique Past History - Adult - PAST MEDICAL HISTORY-ADULT Review of Records: reports: Nursing Assessment Review Major Childhood Illnesses: reports: denies history Cardiovascular: reports: CHF, HTN, hyperlipidemia Respiratory: reports: asthma, COPD Gastrointestinal: reports: GERD Obstetrical/Gynecological: reports: denies history Genitourinary: reports: dialysis (MWF hemodialysis), ESRD, kidney disease, chronic UTI's, other (indwelling flores) Musculoskeletal: reports: denies history Neurological: reports: dementia Psychiatric: reports: depression Endocrine/Immune: reports: Diabetes, thyroid disorder (hypo) Other Conditions: reports: other cancer (melanoma) - PRIOR SURGERIES/PROCEDURES Surgical/Procedure History: reports: hysterectomy, BTL, indwelling device (PICC LINE), tonsillectomy, orthopedic (extremity) (arthroscopy), joint replacement (Left Hip), other (cystoscopy; fistula R upper arm) - IMMUNIZATION STATUS Childhood Immunizations: See Nurse Assessment Flu Vaccine: See Nurse Assessment - FAMILY HISTORY Family History: reviewed, not pertinent Physical Exam-General - PHYSICAL EXAM-ADULT Initial Vital Signs Reviewed: Yes - CONSTITUTIONAL General Appearance: lethargic, obtunded - HEAD, EARS, NOSE, MOUTH & THROAT HENMT: normocephalic/atraumatic - NECK Neck: non-tender - RESPIRATORY Respiratory: chest non-tender. negative: respiratory distress, decreased breath sounds, crackles, rales, wheezing - CARDIOVASCULAR Cardiovascular: regular rate, rhythm - GASTROINTESTINAL (ABDOMEN) Abdominal Exam: non tender, soft, no organomegaly, other (rectal exam, good rectal tone, no active bleeding) - MUSCULOSKELETAL Back Exam: normal inspection, no CVA tenderness, no vertebral tenderness Extremity: negative: erythema, swelling, tenderness - SKIN Integumentary: warm/dry - NEUROLOGIC Neurologic: other (unable to fully assess due to current conditions) Progress - PLAN OF CARE/RESULTS Progress/Plan/Lab Results: Vital Signs - 8 hr 01/10/20 06:39 Temperature 101.3 F H Pulse Rate 69 Respiratory Rate 24 Blood Pressure 102/58 O2 Sat by Pulse Oximetry 95 Orders Category Date Time Status Cardiac Monitoring DIRECTED Care 01/10/20 06:52 Active IV Insertion ORDERED Care 01/10/20 06:52 Completed Notify MD of + Sepsis Screen NOW Care 01/10/20 06:52 Active Notify Physician As Ordered Care 01/10/20 06:52 Active CHEST-1 VIEW [RAD] Stat Exams 01/10/20 06:52 Completed BLOOD CULTURE [BLDCUL] Stat Lab 01/10/20 06:45 Received CBC WITH DIFF [HEME] Stat Lab 01/10/20 06:40 Results CK PROFILE [SP CHEM] Stat Lab 01/10/20 06:40 Received COMPREHENSIVE METABOLIC PANEL [CHEM] Stat Lab 01/10/20 06:40 Received LACTATE, PLASMA [CHEM] Lab 01/10/20 10:00 Uncollected LACTATE, PLASMA [CHEM] Lab 01/10/20 13:00 Uncollected LACTATE, PLASMA [CHEM] Q3H Lab 01/10/20 06:38 Received MAGNESIUM [CHEM] Stat Lab 01/10/20 06:40 Received PROTIME WITH INR [COAG] Stat Lab 01/10/20 06:40 Received PTT [COAG] Stat Lab 01/10/20 06:40 Received ROUTINE CULTURE [RM] Routine Lab 01/10/20 06:54 Ordered TROPONIN T HIGH SENSITIVITY Stat Lab 01/10/20 06:40 Received URINALYSIS W/POSS RFLX CULT [URINALYSIS] Stat Lab 01/10/20 06:54 Ordered 0.9% Sodium Chloride Inj [Ns] 1,000 ml Med 01/10/20 07:03 Discontinued .ROUTE As directed 0.9% Sodium Chloride Inj [Ns] 1,000 ml Med 01/10/20 06:57 Active IV 999 mls/hr Oxygen Device Stat Oth 01/10/20 06:52 Active Result Diagrams: 01/10/20 06:40 01/10/20 06:40 - CONSULTS/PCP/HOSPITALIST Notification #1 *Consult/PCP/Hospitalist*: SOY Time Discussed: 08:26 Consult Disposition: Admit (OK to admit to Dr Meza) Departure - Departure Date of Disposition Decision: 01/10/20 Time of Disposition Decision: 08:27 DIAGNOSIS: SIRS (systemic inflammatory response syndrome) UTI (urinary tract infection) Qualifiers: Urinary tract infection type: site unspecified Hematuria presence: with hematuria Qualified Code(s): N39.0 - Urinary tract infection, site not specified Fever Qualifiers: Fever type: unspecified Qualified Code(s): R50.9 - Fever, unspecified Disposition: ADMITTED INPATIENT 09 Certified Medical Emergency: Emergent Condition: Critical - Critical Care Note This patient required my direct & personal management of CC.: Yes Total Time (mins): 31 Critical Care Statement: This patient required my direct personal management to treat or rule out processes, the absence of which, could potentiallly result in sudden, clinically significant life or limb threatening deterioration. Attestation - Physician/ ADELAIDA Attestation Patient care was provided by Advanced Practice Provider:: No The physician spent face to face time with patient:: Yes Advanced Practice Provider documentation review:: Supervising physician onsite and consulted in the evaluation and care of this patient. The physician did have a face to face encounter with the patient.
[2020-01-10 07:24] LABS: HEMATOCRIT 24.4 % (37.0-47.0); HEMOGLOBIN 7.7 g/dL (12.0-16.0); IMM GRAN# 0.04 X1000 (0.0-0.04); IMM GRAN% 0.3 % (0.0-0.5); LYMPH# 0.38 X1000 (1.2-3.4); LYMPH% 3.3 % (20.5-51.1); MCH 27.7 PG (27-31); MCHC 31.6 g/dL (33-37); MCV 87.8 FL (81-99); MONO# 0.59 X1000 (0.11-0.59); MONO% 5.1 % (1.7-9.3); MPV 10.9 FL (7.4-10.4); NEUT# 10.55 X1000 (1.4-6.5); NEUT% 91.3 % (42.2-75.2); PLT 170 X1000 (130-400); PTT 45.9 Seconds (22.3-41.8); RBC 2.78 XMIL (4.2-5.4); RDW 17.1 % (11.5-14.5); WBC 11.56 X1000 (4.8-10.8)
[2020-01-10 07:24] LABS: BILIRUBIN URINE NEGATIVE (NEGATIVE); BLOOD URINE MODERATE (NEGATIVE); COLOR ORANGE; GLUCOSE URINE NEGATIVE (NEGATIVE); KETONE URINE TRACE mg/dL (NEGATIVE); LEUKOCYTES URINE LARGE (NEGATIVE); NITRITE URINE NEGATIVE (NEGATIVE); PROTEIN URINE >600 mg/dL (NEGATIVE); SP GRAVITY URINE 1.012; TURBIDITY URINE TURBID (CLEAR); UR EPITHELIAL CELLS <10 /HPF (<10); URINE BACTERIA 4+ /HPF; URINE RBC TNTC /HPF (<10); URINE WBC TNTC /HPF (<10); UROBILINOGEN URINE 3 mg/dL (NORMAL)
[2020-01-10] MEDS ORDERED: ZOSYN 2.25 GM in NS 50 ML IV ONE (07:25)
[2020-01-10 07:50] LABS: URINE CASTS NONE SEEN; URINE CRYSTALS NONE SEEN; URINE SMALL ROUND CELLS NONE SEEN; URINE YEAST PRESENT
[2020-01-10 07:58] LABS: ALB/GLOB RATIO 1.3; ALBUMIN 2.9 g/dL (3.5-5.0); CALCIUM 9.4 mg/dL (8.8-10.2); CREATININE 6.3 mg/dL (0.5-0.9); MAGNESIUM 1.8 mg/dL (1.5-2.7); POTASSIUM 4.4 mmol/L (3.5-5.1); TOTAL BILIRUBIN 0.47 mg/dL (0.20-1.00); TOTAL PROTEIN 5.2 g/dL (6.3-8.3)
[2020-01-10 08:19] LABS: CK INDEX 0.8 (0.0-2.5); CK-MB 2.01 ng/mL (0.0-5.0)
[2020-01-10] MEDS ORDERED: ZOSYN 2.25 GM in NS 50 ML IV SCH (09:29)
[2020-01-10 10:00] LABS: IRON SATURATION 9 %; TIBC 151 ug/dL; TOTAL IRON 13 ug/dL (49-151); UNBOUND IRON 138 ug/dL (112-346)
--- NOTE | 2020-01-10 10:27 | Diag Imaging Result Doc PS360 ---
CT ABDOMEN/PELVIS W/O CONTRAST - 01/10/2020 INDICATION: fever,Anemia COMPARISON: 05/24/2019 FINDINGS: Anemia is present. There is mild cardiomegaly. There is a small left pleural effusion. There is some faint patchy infiltrate or fibrosis in the right middle lobe and left lower lobe. There is significant left-sided hydronephrosis with perinephric edema. There is an obstructing stone in the left UPJ. This measures 16.2 x 6.4 mm. The right kidney is very atrophic stable from prior. There is moderate splenomegaly. The spleen measures 15 x 7.9 cm. There are dense calcifications all throughout the pancreas indicating severe chronic pancreatitis. There is also stable severe pancreatic atrophy. No bowel obstruction or inflammation. Stable suprapubic catheter in good position. Stable nonspecific urinary bladder wall thickening. Uterus is absent. The rectum is grossly normal. Stable left femoral neck stabilization nancy. There are moderate degenerative changes of the spine. No acute or suspicious bony lesion. IMPRESSION: 1. Large obstructing left UPJ stone with rather severe left hydronephrosis. Severe right renal atrophy. 2. Splenomegaly. 3. Chronic urinary bladder wall thickening indicating cystitis. This exam was performed using automated exposure control, adjustment of mA or kV according to patient size, and/or use of iterative reconstruction technique Electronically signed by Mac Enriquez 01/10/2020 10:25 AM
[2020-01-10 11:00] LABS: FERRITIN 1539 ng/mL (13-150)
[2020-01-10] MEDS: HUMALOG SUBQ SCH ×3 (11:00→23:57)
[2020-01-10] MEDS: DIFLUCAN 100 MG/NS 100 MG/50 ML IVPB IV SCH (11:54)
--- NOTE | 2020-01-10 12:25 | HISTORY AND PHYSICAL ---
PRIMARY CARE PHYSICIAN: Dr. Benito De Dios. CHIEF COMPLAINT: Fever and a possible urinary tract infection according to staff at [facility]. HISTORY OF PRESENTING ILLNESS: This is a 74-year-old female who presents to [facility] via EMS after they were called by the [facility] nursing staff due to patient having a fever and a possible UTI. She was noted around her suprapubic catheter to have some drainage and redness. Her urine was also noted to be very cloudy and with a lot of sediment and a strong odor. When she arrived, her temperature was 101.3 degrees, blood pressure 102/58, then it dropped to 87/58 approximately 1 hour after arriving. She is receiving her second L of normal saline at this time. Her white blood cell count was 11.56. Her hemoglobin was 7.7 with hematocrit of 24.4. Review of her previous hemoglobin that was done 11/29/2019 was 12.9, and her hematocrit on 11/29/2019 was 39.1. We are doing a stool for occult blood. Her chest x-ray showed a likely combination of fibrosis and pneumonia with increased interstitial markings throughout both lungs. So, she will be admitted to the PVC unit for further evaluation and treatment. It is also noted she is an end-stage renal dialysis patient and receives dialysis on Monday, Monday, Monday. PAST MEDICAL HISTORY: End-stage renal disease with dialysis Monday, Monday, Monday. CHF, COPD, diabetes type 2, DVT on anticoagulant, hypothyroidism, hypertension, hyperlipidemia, GERD, and melanoma. PAST SURGICAL HISTORY: Hysterectomy, tonsillectomy, right knee surgery, suprapubic catheter placement, hernia, bilateral tubal ligation and a fistula placed in her right upper arm. FAMILY HISTORY: Her mom and dad both had coronary artery disease and diabetes. She had 1 brother with epilepsy and 1 brother who had an [place]. SOCIAL HISTORY: She currently resides at [facility]. No tobacco, alcohol or illicit drug use.Allergies: No known drug allergies. HOME MEDICATIONS: A current list will need to be obtained, reconciled, reviewed, and restarted as appropriate. Will place an order for nursing to update and confirm home medications. LABORATORY DATA: Showed a white blood cell count of 11.56, hemoglobin 7.7, hematocrit 24.4, platelets 170,000. PT 31.6, INR 2.95. Sodium 137, potassium 4.4, chloride 95, CO2 24, BUN of 67, creatinine 6.3, glucose 114, magnesium 1.8. Troponin T high sensitivity to 89. Plasma lactate of 1.6. Urinalysis showed moderate blood, negative nitrites, large leukocytes, 4+ bacteria and yeast was present. Chest x-ray showed a likely combination of fibrosis and pneumonia with increased interstitial markings throughout both lungs. REVIEW OF SYSTEMS: Unable to obtain from patient as she is lethargic at this time. PHYSICAL EXAMINATION: VITAL SIGNS: On arrival, she had a temperature of 101.3 degrees, pulse 69, respirations 24, blood pressure 102/58, saturating 95% on room air. Approximately an hour after arriving, her pressure dropped to 87/58. She is currently receiving her second L of normal saline and it is up to 117/42. HEENT: Normocephalic, atraumatic. Normal ENT inspection. Oropharynx and nares are clear. EYES: Pupils are equal, round, reactive to light and accommodation. Extraocular movements are intact. NECK: Normal inspection. Normal range of motion. LUNGS: Clear to auscultation bilaterally with equal lung expansion, chest wall movement. HEART: Regular rate and rhythm. No murmurs, rubs, or gallops. ABDOMEN: Soft, nontender, nondistended. Bowel sounds are present x4 quadrants. She has a suprapubic catheter and there was some redness and drainage around the insertion site. Her urine is draining cloudy with a lot of sediment noted. MUSCULOSKELETAL: Unable to assess but is warm and dry. NEUROLOGICAL: Unable to fully assess. She is noted to be lethargic and obtunded at this time. ASSESSMENT: 1. Sepsis. 2. Bilateral pneumonia. 3. Urinary tract infection. 4. Anemia. 5. End-stage renal disease with dialysis Monday, Monday, Monday. 6. Diabetes type 2. 7. Hypotension. PLAN: She will be admitted to the PVC unit, placed on telemetry, diabetic diet, pattern blood sugars with sliding scale insulin. Incentive spirometry once she becomes more alert. We will consult Nephrology and they will address her anemia, but I am going to do some iron studies. Her stool for occult blood is pending at this time. We are going to do a CT of the abdomen and pelvis without contrast. Place her on Zosyn 2.25 g IV q.6. Do serial lactate. She is receiving her second L of normal saline. I am not going to continue any of that right now until Nephrology sees. I am not sure if they are going to dialyze today or if she will need any more fluids after that. We will monitor that closely. I am going to check some iron studies and give her some Diflucan 100 mg IV q.24 for the next 3 days. Will recheck a CBC and BMP in the a.m. Further orders after seen by attending. Dictated by BENJAMIN Quinonez for Nico Bingham MD Addendum: Patient seen and examined by myself. Agree with BENJAMIN note. It reflects my assessment and plan. Patient is admitted to hospital for sepsis secondary to bilateral pneumonia and UTI so will start broad spectrum antibiotics while we wait for results of urine and blood cultures. We will monitor patient closely. cc: BENJAMIN Quinonez MD Kirk L. Jackson, MD MTDD
[2020-01-10] MEDS ORDERED: NS 2,000 ML MISC PRN (13:08)
[2020-01-10] MEDS ORDERED: VANCOMYCIN 1 GM/NS 1 GM/250 ML IVPB IV SCH (13:15)
[2020-01-10] MEDS: ZOSYN 2.25 GM in NS 50 ML IV SCH ×2 (15:09→20:57)
[2020-01-10] MEDS ORDERED: VANCOMYCIN 1 GM/NS 1 GM/250 ML IVPB IV ONE (17:00)
--- NOTE | 2020-01-10 18:04 | NEPHROLOGY CONSULTATION ---
DATE: 01/10/2020 REASON FOR CONSULTATION: Assistance with evaluation and management. CONSULTING PROVIDER: BENJAMIN Quinonez HISTORY OF PRESENT ILLNESS: Ms. Orellana is a 74-year-old white female who is known to us. She has chronic obstructive uropathy as well as diabetes, hypertension, history of DVT, marked physical debilitation, etc. She was brought to the emergency room from the care home because of fever and altered mental status. Her urine was apparently more cloudy perhaps than normal, malodorous. Her initial evaluation in the emergency room included blood cultures, urine culture, stool. No positive results as of yet. She has been treated with empiric broad-spectrum antibiotics (Zosyn). We will order vancomycin as well. She was given at least 2 L of fluid for resuscitation. Blood pressure was 102/58 on presentation and has ranged between systolic pressure of 85 and 120. Her eyes are closed but she opens them when I speak to her, mumbles her answers which are somewhat in articulate. When asked if she attended dialysis yesterday, she said yes. PAST MEDICAL HISTORY: As above. HOME MEDICATIONS: Include omeprazole, levothyroxine, lovastatin, carvedilol, insulin, ergocalciferol, amlodipine, calcitriol, calcium acetate, fluoxetine, dextrose, albuterol, apixaban, aspirin, guaifenesin, trimethoprim, sulfamethoxazole, magnesium citrate. ALLERGIES: None. SOCIAL HISTORY: She has a daughter but she resides in a care home, [facility]. FAMILY HISTORY: Noncontributory. REVIEW OF SYSTEMS: Noncontributory. OBJECTIVE: Vital Signs: Blood pressure 88/40, heart rate 64, respirations 17, afebrile. General: Elderly woman, lying flat, in no distress. Skin: Warm and dry. Conjunctivae are pink. Pupils are equal. Oropharynx is dry. Neck: Neck veins are not appreciated. Cardiovascular: PMI nonpalpable. Regular rate and rhythm without murmurs or gallops. Lungs: Equal, shallow. No crackles. Abdomen: Soft, nontender. Bowel sounds present. Extremities: Trace edema. No clubbing or cyanosis. Neurologic: Nonfocal except altered mental status as above. IMPRESSION: 1. Chronic kidney disease 5D. She will have her routine dialysis today. 2. Sepsis. I agree with your care thus far. I will also add vancomycin. She does receive dialysis regularly, and as such, she is at some risk for gram-positive sepsis as well. Her current Zosyn dose will be adjusted to q.8 hours. No other medical changes. Most of her p.o. medications are on hold currently. cc: Khai Hannon MD
[2020-01-11] MEDS ORDERED: NS 250 ML IV ONE (04:31)
[2020-01-11] MEDS ORDERED: TYLENOL PO PRN (04:32)
[2020-01-11] MEDS: ZOSYN 2.25 GM in NS 50 ML IV SCH ×3 (04:58→20:24)
[2020-01-11 06:10] LABS: HEMATOCRIT 24.9 % (37.0-47.0); HEMOGLOBIN 7.5 g/dL (12.0-16.0); IMM GRAN# 0.02 X1000 (0.0-0.04); IMM GRAN% 0.2 % (0.0-0.5); LYMPH# 0.23 X1000 (1.2-3.4); LYMPH% 2.7 % (20.5-51.1); MCH 27.1 PG (27-31); MCHC 30.1 g/dL (33-37); MCV 89.9 FL (81-99); MONO# 0.51 X1000 (0.11-0.59); MONO% 6.1 % (1.7-9.3); MPV 11.3 FL (7.4-10.4); NEUT# 7.65 X1000 (1.4-6.5); PLT 152 X1000 (130-400); RBC 2.77 XMIL (4.2-5.4); RDW 17.5 % (11.5-14.5); WBC 8.41 X1000 (4.8-10.8)
[2020-01-11] MEDS ORDERED: CALMOSEPTINE OINTMENT TOP PRN (06:30)
[2020-01-11] MEDS: HUMALOG SUBQ SCH ×4 (06:36→21:02)
[2020-01-11 06:58] LABS: CALCIUM 8.8 mg/dL (8.8-10.2); CREATININE 4.3 mg/dL (0.5-0.9); POTASSIUM 4.1 mmol/L (3.5-5.1)
[2020-01-11 07:06] LABS: LYMPHS 2 % (21-51); MONO 6 % (1-9); SEGS 92 % (42-75)
[2020-01-11] MEDS: DIFLUCAN 100 MG/NS 100 MG/50 ML IVPB IV SCH (08:57)
--- NOTE | 2020-01-11 11:18 | PROGRESS NOTE ---
DATE: 01/11/2020 SUBJECTIVE: The patient is still a little bit confused, less in comparing with yesterday. Not complaining of any pain at this time. OBJECTIVE: Vital Signs: Temperature 97.4 degrees, heart rate 67, respiratory 17, blood pressure 119/38, O2 saturation 97% on room air. General Examination: This is a chronically ill-appearing, 74-year-old, female lying in bed, in no acute distress. Cardiovascular: S1, S2 heard. No murmurs, gallops, or rubs. Regular rate and rhythm. Respiratory: Clear bilaterally to auscultation. No work of breathing or using accessory muscles. Abdomen: Soft, nontender to palpation, nondistended. Bowel sounds present. No organomegaly. There is a suprapubic catheter placed, urine is draining cloudy. Neurological: Patient is lethargic, a little bit better in comparing with yesterday. The patient moves 4 extremities spontaneously. LABORATORY DATA: White cell count. 8.41, hemoglobin 7.5, hematocrit 24.9, platelets 152,000, creatinine 4.3, normal potassium. ASSESSMENT AND PLAN: 1. Sepsis secondary to bilateral pneumonia and urinary tract infection. Patient has been admitted to the hospital for this condition and also for lethargy. The patient is on Zosyn and vancomycin renally dosed as per Dr. Hannon. We will continue with the same management. Urine culture is still pending. Patient has been spiking fever, not anymore. We will continue with the same management. 2. Anemia of chronic disease. We will try to transfuse while this patient has dialysis. She has not received anything yet. We will continue to monitor. 3. Diabetes mellitus type 2. We will restart her insulin. We will continue with sliding scale insulin and Accu-Cheks before meals and also at bedtime. Patient is on diabetic diet. 4. Hypertension. Her blood pressure is much better, it is in the range of 100-110s. Patient has been started on her Coreg 25 mg p.o. b.i.d., but we will continue to hold amlodipine until blood pressure gets much higher. cc: Nico Bingham MD
[2020-01-11] MEDS ORDERED: XYLOCAINE-MPF 2% ONE (11:29)
[2020-01-11] MEDS ORDERED: DIPRIVAN 1% ONE (11:29)
--- NOTE | 2020-01-11 11:40 | CONSULTATION ---
DATE OF CONSULTATION: 01/11/2020 CONSULTING PHYSICIAN: Nico Bingham MD. CONSULTATION FOR: Obstructing left ureteropelvic junction stone. HISTORY OF PRESENT ILLNESS: A 74-year-old female who resides in [facility] has presented with concern for urosepsis. During record review, she has had Klebsiella UTI and Proteus UTI in October and November and has a UTI as well as gram-negative rods growing on her culture at this admission. The patient is a very poor historian and answers simple yes or no questions and hence the records are obtained per chart review. During evaluation, she had a CT scan done on 01/10/2020 which revealed a 16 mm left ureteropelvic junction stone with severe left hydronephrosis as well as right renal atrophy. Patient's denies flank pain, bladder pain, and gross hematuria. She states she does feel chills and had experienced fevers. PAST MEDICAL HISTORY: End-stage renal disease, CHF, COPD, diabetes mellitus, DVT, hypothyroidism, hypertension, hyperlipidemia, GERD, melanoma. PAST SURGICAL HISTORY: Bilateral tubal ligation, right upper arm AV fistula, hernia repair, right knee arthroplasty, tonsillectomy, hysterectomy, suprapubic catheter [place] [address] Orta. ALLERGIES: No known drug allergies. FAMILY HISTORY: Coronary artery disease and diabetes. SOCIAL HISTORY: Resides in [facility]. Denies tobacco, alcohol, or drug use. HOME MEDICATIONS: Amlodipine, aspirin, Coreg, Prozac, insulin, lovastatin, calcium acetate, Synthroid, Eliquis, omeprazole. REVIEW OF SYSTEMS: Unobtainable secondary to patient being a poor historian. PHYSICAL EXAMINATION: Vital Signs: T 97.4 degrees, P 67, BP 119/38. General: No acute distress. Pleasant female. HEENT: Normocephalic, atraumatic. Cardiovascular: Regular rate and rhythm. Pulmonary: Bilateral breath sounds although poor inspiratory effort noted. Abdomen: Soft, protuberant, nontender. Hypoactive bowel sounds. Back: No CVA tenderness. Genitourinary: Suprapubic tube in place draining straw-colored urine. Pelvic Examination: Deferred at this time. Lymphatic: No cervical and no groin lymphadenopathy noted. Dermatologic: No obvious skin rashes. Neurologic: Difficult to assess given her mental status. Psychiatric: Appropriate mood and affect. PERTINENT LABORATORY DATA: White cell count is 8000. Creatinine is 4.3, potassium is 4.1. Urinalysis on 01/10/2020 which showed 4+ bacteria, white cells, red cells. A CT abdomen and pelvis on 01/10/2020 done without contrast revealing a 16 mm left ureteropelvic junction stone with obstruction, severe hydronephrosis as well as thickening of the bladder wall. ASSESSMENT AND PLAN: A 74-year-old female with chronic indwelling suprapubic tube, recurrent urinary tract infections, concern for urosepsis, who has large obstructing left ureteropelvic junction stone. I have discussed with the patient that is likely source of her recent rounds of urinary tract infections. I have discussed that she would benefit from cystoscopy and left ureteral stent placement right away, and definitive stone treatment at a later date when she has recovered from her infection. We discussed risks of the procedure including, but not limited to, bleeding, infection, injury to the bladder, injury to adjacent structures, inability to place a stent, need for additional interventions. PLAN: 1. NPO now. 2. To operating room this morning for cystoscopy and left ureteral stent placement. 3. Thank you for the consultation cc: Fausto Ray MD
[2020-01-11] MEDS ORDERED: EPHEDRINE ONE (11:55)
[2020-01-11] MEDS: PHOSLO PO SCH ×2 (13:52→17:45)
--- NOTE | 2020-01-11 14:11 | OPERATIVE NOTE ---
PROCEDURE DATE: 01/11/2020 SURGEON: Stacey Low PREOPERATIVE DIAGNOSIS: Left ureteropelvic junction stone, hydronephrosis, urosepsis. POSTOPERATIVE DIAGNOSIS: Left ureteropelvic junction stone, hydronephrosis, urosepsis plus copious amount of purulent material in the bladder plus poorly draining suprapubic tube. PROCEDURE: Cystoscopy, evacuation of large amount of purulent hardened material from the bladder, left 6-Indian 24 cm ureteral stent placement, suprapubic tube exchange. INDICATIONS: A 74-year-old female with indwelling suprapubic tube who resides in a [facility] facility. She has had several UTIs over the last few months. She came in with fevers, lethargy and gram negative rods growing in her blood and in the urine. She underwent imaging with CT scan which revealed 16 mm left ureteropelvic junction stone with obstruction and severe hydronephrosis. She was counselled on cystoscopy left ureteral stent placement. FINDINGS: She had an approximately golf ball size, well-organized almost fungus ball appearing purulent collection which had to be removed piece by piece with graspers. Her bladder was irrigated multiple times. Successful stent placement. Suprapubic tube was difficult to exchange as her balloon with not deflate which required me removed cutting the suprapubic tube removing it in a retrograde fashion. DESCRIPTION OF PROCEDURE: After obtaining informed consent, patient brought to the operating room. Preoperative antibiotics and anesthesia were administered. She was placed in lithotomy position, prepped and draped in sterile fashion. We clamped her suprapubic tube. A 21-Indian rigid cystoscope was used to gain access to the bladder, which was briefly examined. She had a very large approximately 4 cm ball of purulent but hardened appearing material in the bladder as well as a copious amount of purulent floating material lining her posterior bladder wall. I used a Riky syringe to irrigate the free-floating material but the hardened around material with not irrigate out, hence I used the rigid graspers and piece by piece removed it. It was extremely foul smelling and again had an appearance of a fungus ball. Once we removed all of the material attention was paid to her left ureteral orifice. PTFE wire was advanced to the level of the renal pelvis as confirmed by fluoroscopy. This was followed by introduction of a 6-Indian, 24 cm ureteral stent. The string was detached from the stent. Following that, we proceeded to exchange her suprapubic tube. I attempted to deflate the balloon multiple times but could not do so. It simply would not deflate. I cut the balloon port in order to allow the fluid to leak out and it would and would not come down. We then cut the suprapubic tube and the balloon continued to be inflated. I then used the rigid graspers and grabbed the edges of the suprapubic tube from the bladder and carefully removed it with the balloon partially intact. We then placed a fresh 16- Indian Snell catheter with 5 mL of sterile water instilled into the balloon. There was a good amount of straw-colored urine come out. Repeat cystoscopy confirmed that there was no evidence of bleeding in the suprapubic side and the balloon was appropriate position. She was then extubated taken to PACU for further recovery. ESTIMATED BLOOD LOSS: None. COMPLICATIONS: None. DRAINS: 16-Indian fresh suprapubic tube. DISPOSITION: Back to the floor for IV antibiotics and observation. We will plan to address her left ureteropelvic junction stone with lithotripsy and cystoscopy with stent removal by either Dr. Orta or myself in 2 to 3 weeks after she was treated for UTI. cc: Fausto Ray MD
[2020-01-11] MEDS: MEVACOR PO SCH (17:45)
[2020-01-11] MEDS: COREG PO SCH (20:24)
[2020-01-11] MEDS ORDERED: NORVASC PO SCH (21:00)
[2020-01-12] MEDS: ZOSYN 2.25 GM in NS 50 ML IV SCH ×2 (04:24→16:58)
[2020-01-12] MEDS: HUMALOG SUBQ SCH ×4 (06:08→19:59)
[2020-01-12] MEDS: SYNTHROID PO SCH (06:08)
[2020-01-12] MEDS: PRILOSEC PO SCH (06:08)
--- NOTE | 2020-01-12 08:15 | PROGRESS NOTE ---
DATE: 01/12/2020 SUBJECTIVE: The patient continues to be a little bit confused. Not complaining of any pain at this time. OBJECTIVE: Vital Signs: Temperature 98.3 degrees, heart rate 70, respiratory rate 24, blood pressure 122/47, O2 saturation 100% on room air. General Examination: This is a chronically ill- appearing, 74-year-old, female lying in bed, in no acute distress. Cardiovascular Examination: S1 and S2 heard. No murmurs, gallops, or rubs. Regular rate and rhythm. Respiratory Examination: Clear bilaterally to auscultation. No work of breathing or using accessory muscles. Abdomen: Soft, nontender to palpation. Bowel sounds present. No organomegaly. There is a suprapubic catheter in place. Urine foul-smelling and cloudy. Neurological Examination: The patient is still lethargic but answered some basic questions. Moved 4 extremities spontaneously. Laboratory Data: Urine culture showed E. coli, sensitive to Zosyn. ASSESSMENT AND PLAN: 1. Sepsis secondary to bilateral pneumonia and urinary tract infection. The patient initially was admitted to the hospital for lethargy. Then, because of anemia, we decided to order an abdomen and pelvis CT, which basically showed a large obstructing left ureteropelvic junction stone. We consulted urology, Dr. Ray, help really appreciated. They performed a cystoscopy with evacuation of the large amount of purulent hardened material from the bladder and they placed a left ureteral stent with a suprapubic tube exchange. The patient has been on some antibiotics. We have discontinued vancomycin. We will continue with Zosyn while she is here in the hospital. Then, whenever patient is ready to discharge, we will adjust the doses of antibiotics on dialysis. 2. Anemia of chronic disease. The patient is most likely going to be transfused blood while on dialysis tomorrow. Nephrology will be taking care of that. 3. Diabetes mellitus type 2. We will continue with sliding scale insulin. Accu-Cheks before meals and also at bedtime. 4. Hypertension. Blood pressure is under control. Patient has been restarted on Coreg. We will continue to monitor. 5. Disposition. I think this patient is much more stable so we will transfer her to a regular room today. cc: MD JEANNIE Kay
[2020-01-12] MEDS: COREG PO SCH ×2 (09:07→19:59)
[2020-01-12] MEDS: CULTURELLE PO SCH (09:07)
[2020-01-12] MEDS: COLACE PO SCH (09:07)
[2020-01-12] MEDS: PHOSLO PO SCH ×3 (09:08→16:58)
[2020-01-12] MEDS: PROZAC PO SCH (09:08)
[2020-01-12] MEDS: DIFLUCAN 100 MG/NS 100 MG/50 ML IVPB IV SCH (09:08)
[2020-01-12] MEDS: VITAMIN D PO SCH (09:08)
[2020-01-12] MEDS: LEVEMIR SUBQ SCH (09:45)
[2020-01-12 10:34] LABS: BASO# 0.01 X1000 (0.0-0.2); BASO% 0.1 % (0.0-0.8); EOS# 0.22 X1000 (0.0-0.7); EOS% 2.4 % (0.0-10.0); HEMATOCRIT 24.9 % (37.0-47.0); HEMOGLOBIN 7.7 g/dL (12.0-16.0); IMM GRAN# 0.04 X1000 (0.0-0.04); IMM GRAN% 0.4 % (0.0-0.5); LYMPH# 0.53 X1000 (1.2-3.4); LYMPH% 5.8 % (20.5-51.1); MCH 27.3 PG (27-31); MCHC 30.9 g/dL (33-37); MCV 88.3 FL (81-99); MONO# 0.57 X1000 (0.11-0.59); MONO% 6.2 % (1.7-9.3); NEUT# 7.77 X1000 (1.4-6.5); NEUT% 85.1 % (42.2-75.2); PLT 94 X1000 (130-400); RBC 2.82 XMIL (4.2-5.4); RDW 17.3 % (11.5-14.5); WBC 9.14 X1000 (4.8-10.8)
[2020-01-12 10:53] LABS: ALBUMIN 2.5 g/dL (3.5-5.0); CALCIUM 8.6 mg/dL (8.8-10.2); CREATININE 5.5 mg/dL (0.5-0.9); PHOSPHORUS 2.8 mg/dL (2.7-4.5); POTASSIUM 4.6 mmol/L (3.5-5.1)
[2020-01-12 11:10] LABS: BANDS 4 % (0-1); LYMPHS 6 % (21-51); MONO 4 % (1-9); SEGS 86 % (42-75)
--- NOTE | 2020-01-12 12:03 | OPERATIVE NOTE ---
PROCEDURE DATE: 01/12/2020 PREOPERATIVE DIAGNOSIS: Phlebosclerosis. POSTOPERATIVE DIAGNOSIS: Phlebosclerosis. PROCEDURE PERFORMED: Ultrasound-guided right common femoral central line placement. SURGEON: Ross Francis MD. DIRECTOR OF PUPIL PERSONNEL PROGRAM: None. ANESTHESIA: Local administered by the surgeon. FINDINGS: Good caliber right common femoral vein. COMPLICATIONS: The initial stick was arterial. ESTIMATED BLOOD LOSS: 10 mL. SPECIMENS REMOVED: None. BRIEF HISTORY: A 74-year-old female who came in with sepsis. She had been treated with IV antibiotics and surgery by Dr. Ray with urology. She had poor IV vein selection. It was felt that she needed a central line. The risks, benefits, and alternatives were discussed, and all questions were answered. DESCRIPTION OF PROCEDURE: After informed consent was obtained, the patient remained in her PVC bed. Ultrasound was used to identify the common femoral vein on the right side in the groin. We prepped and draped this area in a sterile fashion. Under local anesthetic, I was able to cannulate the right common femoral vein. It should be noted that 1 stick was in the artery but we held pressure. I did not see a hematoma formed but we discussed it with the nurse. On the second stick, we stuck the common femoral vein, passed a wire, seen going into the vein under ultrasound. We then dilated up the tract in the typical Seldinger technique to place the tip of the catheter in the vein. We then aspirated and flushed all ports easily. We secured it in place, placed a sterile dressing. The patient tolerated the procedure well. She remained in her bed. cc: Ross Francis MD [facility]
--- NOTE | 2020-01-12 12:29 | PROGRESS NOTE ---
DATE: 01/12/2020 SUBJECTIVE: Ms. Orellana reports she had a decent night. She denies flank pain. PHYSICAL EXAMINATION: T 98.3 degrees, P 70, BP 122/47. General: No acute distress. Abdomen is soft, nontender, nondistended. Back: No CVA tenderness. : Suprapubic tube in place draining cloudy grayish-appearing urine. PERTINENT LABORATORY DATA: White cell count is 9000, hematocrit is 25. Creatinine is 5.5. ASSESSMENT AND PLAN: A 74-year-old female postop day 1, status post cystoscopy with evacuation of copious purulent material from the bladder and placement of a 6-Armenian, 24 cm stent as well as suprapubic tube exchange, who is doing well. I have educated the patient that she will need to have her 16 mm stone treated at a later date, which can be done on an outpatient services basis by Dr. Orta or myself. She voiced understanding. PLAN: No further urological intervention needed at this time. After discharge from the hospital, she can follow up at our office in 1 to 2 weeks to get set up for left extracorporeal shockwave lithotripsy and cystoscopy with stent removal. cc: Fausto Ray MD
[2020-01-12] MEDS: MEVACOR PO SCH (17:02)
[2020-01-13] MEDS: ZOSYN 2.25 GM in NS 50 ML IV SCH ×3 (00:53→16:19)
[2020-01-13] MEDS: HUMALOG SUBQ SCH ×4 (06:12→22:48)
[2020-01-13] MEDS ORDERED: NS 2,000 ML MISC PRN (06:19)
[2020-01-13] MEDS ORDERED: TIGHT: 0.2 ML/HR FOR DIALYSIS MISC PRN (06:19)
[2020-01-13] MEDS ORDERED: HEPARIN IV PRN (06:19)
[2020-01-13] MEDS: PRILOSEC PO SCH (06:32)
[2020-01-13] MEDS: SYNTHROID PO SCH (06:32)
[2020-01-13] MEDS: PHOSLO PO SCH ×3 (08:04→16:19)
[2020-01-13] MEDS: CULTURELLE PO SCH (08:04)
[2020-01-13] MEDS: PROZAC PO SCH (08:04)
[2020-01-13] MEDS: COLACE PO SCH (08:04)
[2020-01-13] MEDS: LEVEMIR SUBQ SCH (08:05)
[2020-01-13] MEDS: VITAMIN D PO SCH (08:06)
[2020-01-13] MEDS: COREG PO SCH (08:06)
[2020-01-13 09:17] LABS: BASO# 0.01 X1000 (0.0-0.2); BASO% 0.1 % (0.0-0.8); EOS# 0.18 X1000 (0.0-0.7); EOS% 1.7 % (0.0-10.0); HEMATOCRIT 23.2 % (37.0-47.0); HEMOGLOBIN 7.3 g/dL (12.0-16.0); LYMPH# 0.72 X1000 (1.2-3.4); LYMPH% 6.9 % (20.5-51.1); MCH 27.4 PG (27-31); MCHC 31.5 g/dL (33-37); MCV 87.2 FL (81-99); MONO# 0.84 X1000 (0.11-0.59); MONO% 8.1 % (1.7-9.3); MPV 11.6 FL (7.4-10.4); NEUT# 8.55 X1000 (1.4-6.5); NEUT% 82.2 % (42.2-75.2); PLT 147 X1000 (130-400); RBC 2.66 XMIL (4.2-5.4); RDW 17.2 % (11.5-14.5)
[2020-01-13 09:40] LABS: ALBUMIN 2.5 g/dL (3.5-5.0); CALCIUM 8.5 mg/dL (8.8-10.2); CREATININE 6.5 mg/dL (0.5-0.9); PHOSPHORUS 1.6 mg/dL (2.7-4.5); POTASSIUM 4.5 mmol/L (3.5-5.1)
--- NOTE | 2020-01-13 09:45 | Diag Imaging Result Doc PS360 ---
FLUROSCOPY CYSTO - 01/11/2020 INDICATION: L URETERO PELVIC JUNC STONE TECHNIQUE: Fluoroscopy and multiple views of the abdomen. The exam was performed by the patient's urologist. 10 images were obtained. COMPARISON: CT from 01/10/2020 FINDINGS: There was wire instrumentation of the left ureter and left renal collecting system. A left nephroureteral stent was placed in good position. IMPRESSION: No complication. Electronically signed by Mac Enriquez 01/13/2020 9:43 AM
[2020-01-13] MEDS ORDERED: NS 1,000 ML IV ONE (10:22)
[2020-01-13] MEDS ORDERED: NS 500 ML IV ONE (10:24)
--- NOTE | 2020-01-13 11:49 | PROGRESS NOTE ---
DATE: 01/13/2020 SUBJECTIVE: The patient continues to be a little bit confused and is slow, I would say probably same in comparing since admission. OBJECTIVE: Vital Signs: Temperature 98.9 degrees, heart rate 63, respiratory rate 18, blood pressure 115/77, and O2 saturation 97% on room air. General Examination: This is a chronically ill-appearing, looking older than her stated age, 74-year-old female, lying in bed, in no acute distress. Cardiovascular: S1 and S2 heard. No murmurs, gallops, or rubs. Regular rate and rhythm. Respiratory: Clear bilaterally to auscultation. No work of breathing or using accessory muscles. Abdomen: Soft, nontender to palpation. Bowel sounds present. No organomegaly. There is a suprapubic catheter in place. Urine with some foul smelling, cloudy. Neurological: Patient is still sleepy and lethargic, but answered some basic questions. Moves 4 extremities spontaneously. LABORATORY DATA: White cell count 10.4, hemoglobin 7.3, hematocrit 33.2, platelets 147,000, with BMP remarkable for sodium 133 and BUN 114. ASSESSMENT AND PLAN: 1. Severe sepsis secondary to bilateral pneumonia and urinary tract infection. The patient continues to be lethargic. This morning I was informed that this patient has a blood pressure 70/50. What we are going to do is to start intravenous fluids. We are going to provide bolus of 1 liter normal saline, and then we will continue with fluids at 100 mL/hour. If the blood pressure continues to drop, we will send this patient to the intensive care unit to start vasopressors. White cell count is back to normal, and the patient is not spiking any fever. 2. Urinary tract infection. The patient has been seen by Urology. They have performed a cystoscopy with a question of copious purulent material from the bladder, and they placed a 24 cm stent. They have changed the suprapubic tube. At this point, we will continue with the same management in this case, Zosyn renally dosed. She has E coli bacteremia 3. Anemia of chronic disease. Hemoglobin is 7.3 today, so we are going to transfuse 1 unit of blood while on dialysis. 4. Diabetes mellitus type 2. We will continue with sliding scale insulin. Accu-Chek before meals and also at bedtime. 5. Hypertension. Blood pressure is under control. We will continue with the same medications. 6. Disposition. We will monitor this patient closely. We will check vital signs in an hour from my evaluation, and if the blood pressure continues to drop, we will send her to intensive care unit. cc: Nico Bingham MD MTDD
[2020-01-13] MEDS: NS 1,000 ML IV SCH ×2 (12:53→22:47)
[2020-01-13] MEDS: MEVACOR PO SCH (16:19)
--- NOTE | 2020-01-13 19:18 | PROVIDER PROGRESS NOTE ---
Progress Note Subjective: she denies any complaints. She is resting in bed comfortably. Objective: temperature 98.8, pulse 65, respirations 18, blood pressure 129/38, 02 sat 98% on room air. General: elderly white female lying in bed in no distress. HEENT: normocephalic, atraumatic, pupils equal and reactive, conjunctiva are pink. Neck: supple, no JVD appreciated. Cardiovascular: regular rate and rhythm without murmur or gallop. Respiratory: lungs clear to auscultation anteriorly with equal air entry Abdomen: soft, nontender, nondistended. Bowel sounds present. : non-inspected extremities: no clubbing, cyanosis, or edema. Neurological: alert and oriented to person, place, and time. Labs: WBC 10.40, hemoglobin 7.3, hematocrit 23.2, platelet count 147, sodium 133, potassium 4.5, chloride 93, carbon dioxide 22, BUN 114, creatinine 6.5, albumin 2.5. Intake 170, output 250. Impression: Chronic kidney disease stage 5D. She will have a routine hemodialysis treatment today with a 2k bath and ultrafiltration to outpatient dry weight. Impacted ureteral stone with pyelonephritis. Status post cystoscopy with stent placement. She denies any blood in her urine. She has no complaints of fever or chills. Urology is following. Blood pressure. Stable. Fluid volume. Euvolemic. Anemia. One unit packed red blood to transfuse with Dialysis today. Electrolytes and acid base balance. Stable. Nutrition. Supplements in place. Medication review. No changes.
[2020-01-14] MEDS: ZOSYN 2.25 GM in NS 50 ML IV SCH ×4 (00:04→23:35)
[2020-01-14] MEDS: HUMALOG SUBQ SCH ×4 (06:06→20:55)
[2020-01-14] MEDS: PRILOSEC PO SCH (06:07)
[2020-01-14] MEDS: SYNTHROID PO SCH (06:07)
[2020-01-14 09:01] LABS: BASO# 0.04 X1000 (0.0-0.2); BASO% 0.4 % (0.0-0.8); EOS# 0.17 X1000 (0.0-0.7); EOS% 1.6 % (0.0-10.0); HEMATOCRIT 26.1 % (37.0-47.0); HEMOGLOBIN 8.1 g/dL (12.0-16.0); IMM GRAN# 0.45 X1000 (0.0-0.04); IMM GRAN% 4.2 % (0.0-0.5); LYMPH# 0.62 X1000 (1.2-3.4); LYMPH% 5.8 % (20.5-51.1); MCH 27.4 PG (27-31); MCV 88.2 FL (81-99); MONO# 1.24 X1000 (0.11-0.59); MONO% 11.7 % (1.7-9.3); MPV 11.2 FL (7.4-10.4); NEUT# 8.09 X1000 (1.4-6.5); NEUT% 76.3 % (42.2-75.2); PLT 168 X1000 (130-400); RBC 2.96 XMIL (4.2-5.4); RDW 17.1 % (11.5-14.5); WBC 10.61 X1000 (4.8-10.8)
[2020-01-14 09:40] LABS: ALBUMIN 2.4 g/dL (3.5-5.0); CALCIUM 8.1 mg/dL (8.8-10.2); PHOSPHORUS 2.3 mg/dL (2.7-4.5); POTASSIUM 3.7 mmol/L (3.5-5.1)
[2020-01-14] MEDS: PHOSLO PO SCH ×3 (10:28→18:00)
[2020-01-14] MEDS: COLACE PO SCH (10:32)
[2020-01-14] MEDS: CULTURELLE PO SCH (10:32)
[2020-01-14] MEDS: PROZAC PO SCH (10:33)
[2020-01-14] MEDS: VITAMIN D PO SCH (10:33)
--- NOTE | 2020-01-14 10:39 | PROGRESS NOTE ---
DATE: 01/14/2020 SUBJECTIVE: The patient upon my examination today not only is confused a little bit more but also short of breath and tachypneic. OBJECTIVE: Vital Signs: Temperature 99 degrees, heart rate 69, respiratory rate 22, blood pressure 121/43, O2 saturation 95% on room air. General: This is a chronically ill-appearing and looking older than her stated age 74-year-old female, lying in bed in mild respiratory distress, tachypneic. Cardiovascular: S1, S2 heard. Tachycardic. No murmurs, gallops, or rubs. Regular rate and rhythm. Respiratory: Coarse breath sounds noted all over both pulmonary barr as well as crackles. Patient is not using any accessory muscles or having work of breathing. Abdomen: Soft, a little bit distended but nontender to palpation. Bowel sounds present. No organomegaly. There is a suprapubic catheter in place. Urine with foul smelling and cloudy. Neurological: Patient still is sleepy and lethargic I would say a little bit worse in comparing with yesterday. She moves 4 extremities spontaneously. LABORATORY DATA: White cell count 10.61, hemoglobin 8.1, hematocrit 26.1, platelets 168,000. Sodium 133, potassium 3.7, glucose 224. ASSESSMENT AND PLAN: 1. Severe sepsis secondary to bilateral pneumonia and urinary tract infection. Patient continues to be lethargic. Today she woke up more tachypneic. At this point, I am not quite sure if this pneumonia is getting worse or she is volume overloaded from IV fluids that she was receiving. In any case, I am going to order a CT of the chest without contrast. We will stop IV fluids. The reason why we started those was because the blood pressure at some point reached 70 and 80s systolic blood pressure. We will send this patient to the intensive care unit for better monitoring. 2. Escherichia coli bacteremia/urinary tract infection. We will continue with Zosyn, renally dosed. 3. Kidney stones, bladder infection. Urology has been consulted because we found a big stone. They have performed cystoscopy and according to their report, they said that they removed copious purulent material from the bladder and also they placed a 24 cm stent. Suprapubic catheter has been changed because that has been plugged up with pus. At this point, we will continue with the same antibiotics, in this case Zosyn. 4. Anemia of chronic disease. Patient has received 1 unit of blood while on dialysis and hemoglobin is 8.3 today. We will continue to monitor. 5. Diabetes mellitus type 2. We will continue with sliding scale insulin and Accu-Chek before meals and also at bedtime. 6. Hypertension. The patient is not having any blood pressure medication. Blood pressure has been low yesterday but responded to fluids at this point. The patient looks overloaded so we are not going to continue with IV fluids. 7. Disposition. As we mentioned before, patient is going to the intensive care unit. cc: Nico Bingham MD
[2020-01-14] MEDS: DUONEB (A & A) INH SCH ×3 (11:24→19:41)
[2020-01-14] MEDS: LEVEMIR SUBQ SCH (11:34)
--- NOTE | 2020-01-14 11:53 | Diag Imaging Result Doc PS360 ---
EXAM: CT THORAX W/O CONTRAST - 01/14/2020 HISTORY: sob, volume overload, pna? TECHNIQUE: CT thorax without contrast COMPARISON: 02/03/2018 CT angiogram pulmonary arteries FINDINGS: There are artifacts from motion which limit detail. There are scattered bilateral pulmonary opacities. Some of these appear to be chronic, compatible with scarring. There are calcifications associated with some of the scarring, most prominent at the left lower lobe. There are some small opacities which are not discretely visible on prior exam and could relate to progressive scarring or small acute infiltrates. There is a small left pleural effusion, which is smaller than the pleural effusion which was present on the prior exam. There is a tiny right pleural effusion. There is no evidence of pneumothorax. There is mild mediastinal adenopathy, which appears to have increased mildly. Included sections of upper abdomen show somewhat prominent visualized liver and spleen. IMPRESSION: Bilateral pulmonary scarring. Question scattered small acute infiltrates versus progressive scarring. Small left pleural effusion. Tiny right pleural effusion. Mild mediastinal adenopathy.. This exam was performed using automated exposure control, adjustment of mA or kV according to patient size, and/or use of iterative reconstruction technique. Electronically signed by Kranthi Martinez 01/14/2020 11:51 AM
[2020-01-14] MEDS: MEVACOR PO SCH (18:00)
--- NOTE | 2020-01-14 18:01 | PROVIDER PROGRESS NOTE ---
Progress Note Subjective: Voices she does not feel well with general malaise. Staff voices her spiking a fever of 101.6 during the night. Objective: temperature 99.0, pulse 69, respirations 22, blood pressure 121/43, o2 sat 95% on room air. General: elderly white female lying in bed in no obvious distress. HEENT: normocephalic, atraumatic, pupils equal and reactive, conjunctiva are pink, mucous membranes dry. Neck: supple, 6cm JVD appreciated. Cardiovascular: regular rate and rhythm without murmur or gallop. Widening pulse pressure. Respiratory: lungs clear to auscultation anteriorly with equal air entry Abdomen: soft, nontender, nondistended. Bowel sounds present. : suprapubic in place with grayish urine. Extremities: no clubbing or cyanosis. Trace edema. Neurological: alert and oriented to person, place, and time. Labs: WBC 10.61, hemoglobin 8.1, hematocrit 26.1, platelet count 168, sodium 133, potassium 3.7, chloride 94, carbon dioxide 22, BUN 58, creatinine 4.0, albumin 2.4, intake 2500, output 2438. Impression: Chronic kidney disease stage 5D. She had her routine hemodialysis treatment yesterday without complications. Impacted ureteral stone with pyelonephritis. Status post cystoscopy with stent placement. High pressures noted when irrigating. You repositioned catheter for better drainage. Blood pressure. Stable with widening pulse pressure. Fluid volume. Euvolemic. Anemia. One unit PRBC given yesterday.. Electrolytes and acid base balance. Stable. Nutrition. Supplements in place. Encouraged to eat. Medication review. No changes. Better by the time of my rounds at 1630. Alert and aprropriate. No pain, fever. rg
[2020-01-15] MEDS: DUONEB (A & A) INH SCH ×7 (00:16→23:04)
[2020-01-15 05:50] LABS: BASO# 0.04 X1000 (0.0-0.2); BASO% 0.3 % (0.0-0.8); EOS# 0.45 X1000 (0.0-0.7); EOS% 3.8 % (0.0-10.0); HEMATOCRIT 26.6 % (37.0-47.0); HEMOGLOBIN 8.2 g/dL (12.0-16.0); IMM GRAN% 8.4 % (0.0-0.5); LYMPH# 0.98 X1000 (1.2-3.4); LYMPH% 8.3 % (20.5-51.1); MCH 27.3 PG (27-31); MCHC 30.8 g/dL (33-37); MCV 88.7 FL (81-99); MONO# 1.24 X1000 (0.11-0.59); MONO% 10.4 % (1.7-9.3); MPV 11.4 FL (7.4-10.4); NEUT# 8.16 X1000 (1.4-6.5); NEUT% 68.8 % (42.2-75.2); PLT 205 X1000 (130-400); WBC 11.87 X1000 (4.8-10.8)
[2020-01-15] MEDS: PRILOSEC PO SCH (06:18)
[2020-01-15] MEDS: SYNTHROID PO SCH (06:18)
[2020-01-15] MEDS: HUMALOG SUBQ SCH ×4 (06:18→20:51)
[2020-01-15] MEDS ORDERED: TIGHT: 0.2 ML/HR FOR DIALYSIS MISC PRN (06:31)
[2020-01-15] MEDS ORDERED: NS 2,000 ML MISC PRN (06:31)
[2020-01-15] MEDS ORDERED: HEPARIN IV PRN (06:31)
[2020-01-15 06:33] LABS: ALBUMIN 2.4 g/dL (3.5-5.0); CALCIUM 8.2 mg/dL (8.8-10.2); CREATININE 4.8 mg/dL (0.5-0.9); PHOSPHORUS 3.3 mg/dL (2.7-4.5); POTASSIUM 4.1 mmol/L (3.5-5.1)
[2020-01-15] MEDS: PHOSLO PO SCH ×3 (08:14→18:34)
[2020-01-15] MEDS: COLACE PO SCH (08:14)
[2020-01-15] MEDS: CULTURELLE PO SCH (08:14)
[2020-01-15] MEDS: PROZAC PO SCH (08:14)
[2020-01-15] MEDS: ZOSYN 2.25 GM in NS 50 ML IV SCH ×3 (08:15→23:55)
[2020-01-15] MEDS: VITAMIN D PO SCH (08:15)
[2020-01-15] MEDS: ASPIRIN EC PO SCH (08:16)
[2020-01-15] MEDS: LEVEMIR SUBQ SCH (08:18)
--- NOTE | 2020-01-15 08:41 | PROGRESS NOTE ---
DATE: 01/15/2020 INTERVAL HISTORY: Ms. Orellana had episodes of shortness of breath and tachypnea so she was transferred to ICU for closer monitoring. A CT scan of the chest was obtained. CT scan of the chest did detect she had pulmonary fibrosis, pleural effusion, and mild infiltrate. The effusion was more pronounced on the left than on the right side. No other acute overnight events. SUBJECTIVE: Ms. Orellana denies any chest pain, shortness of breath, nausea, vomiting, or abdominal pain. She is about to have her breakfast. PHYSICAL EXAMINATION: Vital Signs: Temperature of 97.3 degrees, pulse 64, respiratory rate 17, and blood pressure 142/59. She is saturating 98% on 2 L nasal cannula. PHYSICAL EXAMINATION: Tachypneic not in significant distress. Oral cavity is moist. She has decreased air entry with inspiratory crackles bilateral lung barr more pronounced on the left.Cardiovascular: S1, S2 normal. No murmur or gallop. Abdomen: Soft and nontender. Extremities: No lower extremity edema. She has right-sided groin central line, suprapubic catheter, and right arm AV fistula. Neurologic: She is alert. She is following simple commands like raising arms, and raising both upper legs. She denies known history of stroke. LABORATORY: Labs suggestive of WBC 30685, hemoglobin 8.2, and platelet 205,000. Her BUN is 60, and creatinine 4.8. She did have blood glucose of 265. MICROBIOLOGY: Repeat blood cultures have been ordered, which are in lab. IMAGING: No new imaging. ASSESSMENT AND PLAN: 1. Severe sepsis due to bilateral lower lobe pneumonia and Escherichia coli acute pyelonephritis. Continue intravenous antibiotics. I will consider down titrating antibiotics as per her course. Follow up repeat blood culture results. She currently appears hemodynamically stable. 2. Left ureteropelvic junction stone with severe left-sided hydronephrosis as well as severe acute pyelonephritis and acute cystitis status post left ureteral stent and change of suprapubic catheter. Urology team on board. She would need outpatient follow-up 1 to 2 weeks later for extracorporeal shock wave lithotripsy and cystoscopy with stent removal. 3. Anemia of chronic disease, status post 1 unit of packed red blood cell transfusion with appropriate rise in hemoglobin. Continue to monitor. 4. Chronic kidney disease stage 5 on Monday, Monday, Monday hemodialysis. Nephrology team on board. Appreciate recommendation. She does have mild pleural effusion, which could be related to her chronic kidney disease. 5. Others: Continue to hold antihypertensive medication until her blood pressure normalizes. 6. History of DVT in 2017. The patient was listed to be taking 5 mg b.i.d. of apixaban dose. I will look into other indications for apixaban, and based on that I will consider in fact decreasing the dose to 2.5 mg b.i.d. 7. Continue home Levemir for insulin-dependent diabetes mellitus, levothyroxine for hypothyroidism, lovastatin for hyperlipidemia, and omeprazole for GERD. DISPOSITION: I will currently monitor patient in ICU. If she does not have any more tachypnea episode, my plan is to transfer her to the floor later in the day. Plan of care discussed with the patient and the nursing team. cc: Moses Lieberman MD MTDD
[2020-01-15] MEDS: MEVACOR PO SCH (18:34)
[2020-01-15] MEDS: ELIQUIS PO SCH (20:15)
[2020-01-15] MEDS: TYLENOL PO PRN (20:33)
--- NOTE | 2020-01-15 21:47 | PROVIDER PROGRESS NOTE ---
Progress Note Subjective: She voices general malaise but denies shortness of breath, chest pain, fever or chills. Objective: temperature 98.5, pulse 69, respirations 17, blood pressure 144/58, 02 sat 99% on 2 L nasal cannula. General: elderly white female lying in bed in no obvious distress. HEENT: normocephalic, atraumatic, pupils equal and reactive, conjunctiva are pink, mucous membranes dry. Neck: supple, 6cm JVD appreciated. Cardiovascular: regular rate and rhythm without murmur or gallop. Respiratory: lungs clear to auscultation anteriorly with equal air entry Abdomen: soft, nontender, nondistended. Bowel sounds present. : suprapubic in place with adequate urine output. Extremities: no clubbing or cyanosis. 1+ edema to BUE and BLE. Neurological: alert and oriented to person, place, and time. Labs: WBC 11.87, hemoglobin 8.2, hematocrit 26.6, platelet count 205, sodium 132, potassium 4.1, chloride 94, carbon dioxide 25, BUN 68, creatinine 4.8, albumin 2.4. Intake 390, output 550. Impression: Chronic kidney disease stage 5D. She will have her routine hemodialysis treatment with a 2K bath and attempt a 2L ultrafiltration. Impacted ureteral stone with pyelonephritis. Status post cystoscopy with stent placement. Staff noted some leaking around the catheter. Encouraged to let urology know. Adequate urine output noted. Blood pressure. Stable. Fluid volume. Euvolemic. Anemia. Low, does not require transfusion. Electrolytes and acid base balance. Stable. Nutrition. Supplements in place. Encouraged to eat. Medication review. Eliquis 5mg BID started.
[2020-01-15] MEDS ORDERED: ZYVOX 600 MG/D5W 600 MG/300 ML IVPB IV SCH (23:45)
[2020-01-16] MEDS: DUONEB (A & A) INH SCH ×6 (03:37→22:55)
[2020-01-16 05:48] LABS: BASO# 0.06 X1000 (0.0-0.2); BASO% 0.4 % (0.0-0.8); EOS# 0.54 X1000 (0.0-0.7); EOS% 3.2 % (0.0-10.0); HEMATOCRIT 25.6 % (37.0-47.0); IMM GRAN% 8.3 % (0.0-0.5); LYMPH# 1.19 X1000 (1.2-3.4); LYMPH% 7.1 % (20.5-51.1); MCH 27.5 PG (27-31); MCHC 31.3 g/dL (33-37); MONO# 1.36 X1000 (0.11-0.59); MONO% 8.1 % (1.7-9.3); MPV 10.8 FL (7.4-10.4); NEUT# 12.23 X1000 (1.4-6.5); NEUT% 72.9 % (42.2-75.2); PLT 283 X1000 (130-400); RBC 2.91 XMIL (4.2-5.4); RDW 16.3 % (11.5-14.5); WBC 16.78 X1000 (4.8-10.8)
[2020-01-16 06:01] LABS: ALBUMIN 2.3 g/dL (3.5-5.0); CREATININE 3.5 mg/dL (0.5-0.9); PHOSPHORUS 2.6 mg/dL (2.7-4.5)
[2020-01-16] MEDS: PRILOSEC PO SCH (06:14)
[2020-01-16] MEDS: HUMALOG SUBQ SCH ×4 (06:14→20:18)
[2020-01-16] MEDS: SYNTHROID PO SCH (06:14)
[2020-01-16 06:47] LABS: EOS 3 % (1-10); LYMPHS 7 % (21-51); MONO 9 % (1-9); SEGS 81 % (42-75)
[2020-01-16] MEDS ORDERED: VANCOMYCIN IV PER PHARMACY MISC SCH (07:30)
[2020-01-16] MEDS: ZOSYN 2.25 GM in NS 50 ML IV SCH ×2 (07:55→17:00)
[2020-01-16] MEDS: COLACE PO SCH (07:59)
[2020-01-16] MEDS: PHOSLO PO SCH ×3 (08:00→17:00)
[2020-01-16] MEDS: ELIQUIS PO SCH ×2 (08:00→20:17)
[2020-01-16] MEDS: CULTURELLE PO SCH (08:00)
[2020-01-16] MEDS: VITAMIN D PO SCH (08:00)
[2020-01-16] MEDS: PROZAC PO SCH (08:00)
[2020-01-16] MEDS ORDERED: VANCOMYCIN 1 GM/NS 1 GM/250 ML IVPB IV ONE ×2 (08:30→10:00)
[2020-01-16] MEDS ORDERED: VANCOMYCIN 1 GM/NS 1 GM/250 ML IVPB IV SCH (09:00)
--- NOTE | 2020-01-16 09:17 | PROGRESS NOTE ---
DATE: 01/16/2020 INTERVAL HISTORY: Physical therapy had evaluated her and she was able to stand up by the edge of the bed. She has not had any other acute events. Ms. Orellana is feeling better. She denies any chest pain, shortness of breath or cough. VITALS: Temperature of 99 degrees, pulse of 76, respiratory rate 20, blood pressure 149/59. She is saturating 99% on 2 L nasal cannula. PHYSICAL EXAMINATION: General: She is not in acute distress. Oral cavity: Moist. Lungs: Air entry bilaterally equal. No wheeze or rhonchi. Inspiratory crackles in infrascapular region. Heart: S1, S2 normal. Mild systolic murmur at the base of the heart. No rub or gallop. Abdomen: Soft, nontender. Extremities: She has mild edema of lower extremities. She has mild edema of the right upper extremity. Lines/tubes: She has a right-sided groin central line and a suprapubic catheter draining clear urine. She has a right arm AV fistula with positive thrill. Neurologic: She is alert, following simple commands. She is oriented to herself, place, and partly with the situation. She could not tell me the year correctly. LABS: Suggestive of WBC of 16,000, hemoglobin 8, platelet count 283. BUN of 31, creatinine 3.5. MICROBIOLOGY: One of the 4 blood cultures is growing gram-positive cocci. The final report is pending. ASSESSMENT AND PLAN: 1. Severe sepsis due to bilateral multifocal pneumonia, Escherichia coli acute pyelonephritis. I will continue her on intravenous Zosyn considering her leukocytosis. I will follow up with chest x-ray tomorrow. Add vancomycin for gram positive cocci in blood and follow up final blood culture data. 2. Left ureteropelvic junction stone with severe left-sided hydronephrosis leading to acute pyelonephritis and acute cystitis status post left ureteral stent and change of suprapubic catheter. Urology team on board. She would need outpatient follow-up 1 to 2 weeks later for extracorporeal shockwave lithotripsy, cystoscopy with stent removal. 3. Anemia of chronic disease, status post 1 unit of packed red blood cells with appropriate rise in hemoglobin. Continue to monitor. 4. Chronic kidney disease stage V on Monday, Monday, Monday hemodialysis. Appreciate Nephrology recommendation. Her mild pleural effusion could be related to slight volume overload. 5. Right upper extremity swelling. On my evaluation she has a positive thrill and she is able to perform active movement at wrist, elbow, shoulder, and interphalangeal joint. There is no undue erythema that I could see. I will continue to monitor and according to my discussion with Nephrology, her fistula has been functioning fine. So, I will continue to monitor the right upper extremity. 6. Others. Continue home Levemir for insulin-dependent diabetes mellitus with sliding scale insulin, levothyroxine for hypothyroidism, lovastatin for hyperlipidemia, and omeprazole for gastroesophageal reflux disease. Continue home dose of apixaban for history of deep vein thrombosis in 2017. DISPOSITION: I will transfer patient to medical floor. I will continue physical therapy. Plan of care discussed with the patient and nursing team. Later in the day, I will try and update the patient's family. I am awaiting final blood culture data. Based on that she will need at least 2 weeks of antibiotics for bacteremia. This could be given after dialysis in coordination with the in home aide. Based on planning discharge to [facility] in next 24-48 hours. cc: Moses Lieberman MD MTDD
[2020-01-16] MEDS: ASPIRIN EC PO SCH (10:00)
[2020-01-16] MEDS: LEVEMIR SUBQ SCH (10:01)
--- NOTE | 2020-01-16 13:52 | PROVIDER PROGRESS NOTE ---
Progress Note Subjective: patient appears more spry. She voice is feeling better and has no complaints. Objective: temperature 99.0, pulse 76, respirations 27, blood pressure 149/59, 02 sat 99% on 2 L nasal cannula. General: elderly white female lying in bed in no obvious distress. HEENT: normocephalic, atraumatic, pupils equal and reactive, conjunctiva are pink, mucous membranes dry. Neck: supple, no JVD appreciated. Cardiovascular: s1s2, regular rate and rhythm, soft systolic murmur. No gallop. Respiratory: lungs clear to auscultation anteriorly with equal air entry Abdomen: soft, nontender, nondistended. Bowel sounds present. : suprapubic in place with adequate urine output. Extremities: no clubbing or cyanosis. 1+ edema to BUE and BLE. Neurological: alert and oriented to person, place, and time. Labs: WBC 16.78, hemoglobin eight, hematocrit 25.6, platelet count 283, sodium 132, potassium 4.0, chloride 94, carbon dioxide 26, BUN 41, creatinine 3.5, albumin 2.3. Intake 2160, output 2469. Impression: Chronic kidney disease stage 5D. She had her routine hemodialysis treatment yesterday with a 1760 mL ultrafiltration. There were no complications reported. No change in plan. Impacted ureteral stone with pyelonephritis. Status post cystoscopy with stent placement. White blood cell count elevated today. Monitor for post-op complications. Blood pressure. Stable. Fluid volume. Euvolemic. Anemia. Low, does not require transfusion. Electrolytes and acid base balance. Stable. Nutrition. Supplements in place. Encouraged to eat. Medication review. No changes.
[2020-01-16] MEDS: MEVACOR PO SCH (17:23)
[2020-01-17] MEDS: ZOSYN 2.25 GM in NS 50 ML IV SCH ×3 (00:09→17:45)
[2020-01-17] MEDS: DUONEB (A & A) INH SCH ×6 (03:30→22:35)
--- NOTE | 2020-01-17 05:53 | Diag Imaging Result Doc PS360 ---
EXAM: CHEST-PORTABLE HISTORY: Follow-up PNA TECHNIQUE: Single view COMPARISON: 01/10/2020 FINDINGS: The lungs are well expanded. The heart is mildly prominent. There are increased interstitial markings throughout both lungs fairly similar to the prior exam. No consolidation. No pleural effusions identified. IMPRESSION: Stable chest Electronically signed by Nico Oconenll 01/17/2020 5:50 AM
[2020-01-17] MEDS: PRILOSEC PO SCH ×2 (05:54→06:00)
[2020-01-17] MEDS: SYNTHROID PO SCH ×2 (05:54→06:00)
[2020-01-17] MEDS: HUMALOG SUBQ SCH ×5 (05:55→20:43)
[2020-01-17] MEDS ORDERED: NS 2,000 ML MISC PRN (06:44)
[2020-01-17] MEDS ORDERED: HEPARIN IV PRN (06:44)
[2020-01-17] MEDS ORDERED: TIGHT: 0.2 ML/HR FOR DIALYSIS MISC PRN (06:44)
[2020-01-17 07:07] LABS: ALBUMIN 2.4 g/dL (3.5-5.0); CALCIUM 8.1 mg/dL (8.8-10.2); CREATININE 4.4 mg/dL (0.5-0.9); POTASSIUM 3.9 mmol/L (3.5-5.1)
[2020-01-17] MEDS: VITAMIN D PO SCH (08:02)
[2020-01-17] MEDS: CULTURELLE PO SCH (08:03)
[2020-01-17] MEDS: PROZAC PO SCH (08:03)
[2020-01-17] MEDS: PHOSLO PO SCH ×3 (08:03→18:00)
[2020-01-17] MEDS: ASPIRIN EC PO SCH (08:03)
[2020-01-17] MEDS: COLACE PO SCH (08:03)
[2020-01-17] MEDS: ELIQUIS PO SCH ×2 (08:03→20:43)
[2020-01-17] MEDS: LEVEMIR SUBQ SCH (08:09)
--- NOTE | 2020-01-17 08:56 | ECHO REPORT ---
ORDER DATE: 01/16/2020 ECHOCARDIOGRAPHIC MEASUREMENTS: 1. Septal thickness 1.3. 2. Left ventricular internal in diastole 5.6. 3. Posterior wall thickness 1.2. 4. Aortic root 3.3. 5. Left atrium 4.2. SUMMARY: 1. Adequate quality study. 2. Aortic valve is trileaflet and opens normally on 2-dimensional images. The peak gradient across the aortic valve was approximately 15 mmHg. Mitral, tricuspid, and pulmonic valves are without evidence of structural abnormality with mild to moderate mitral regurgitation and very mild tricuspid regurgitation. The estimated systolic PA pressure by Doppler is 40 mmHg suggesting mild pulmonary hypertension. Aortic root is normal in size. 3. Normal left ventricular chamber size with mild concentric left hypertrophy is demonstrated. Estimated left ventricular ejection fraction appears to be at least 65%. No regional wall motion abnormalities are evident. Left atrium is mildly enlarged. 4. The right atrium and right ventricle are normal in size with normal right ventricular systolic function. 5. No pericardial effusion. 6. Appearance of inferior vena cava suggests normal central venous pressure. CONCLUSIONS: 1. Mild to moderate mitral regurgitation. 2. Very mild tricuspid regurgitation with mild pulmonary hypertension by Doppler. 3. Mild concentric left hypertrophy with estimated left ventricular ejection fraction at least 65%. 4. Mild left atrial enlargement. cc: MD Marjan Ayala CRNP
--- NOTE | 2020-01-17 09:06 | PROGRESS NOTE ---
DATE: 01/17/2020 SUBJECTIVE: Ms. Orellana reports that she is feeling a little better. Ms. Orellana was admitted on 01/10/2020. She is a patient of Dr. Benito De Dios's, had fever, possible urinary tract infection according to staff at [facility]. This 74-year-old female presented to [facility] on 01/10/2020. [facility] staff called and said that she had fever, possible UTI, and she was noted to have a suprapubic catheter to have some drainage and redness. The urine was also noted to be very cloudy with a lot of sediment, strong order. She arrived with a temperature of 101 degrees. Blood pressure was 102/58. She was admitted with sepsis, bilateral pneumonia, urinary tract infection, anemia, end-stage renal disease, diabetes, and hypertension. The patient reports that she feels better today. She is eating a little bit of breakfast. OBJECTIVE: Vital Signs: She remains afebrile, temperature 97.7 degrees, pulse 78, respirations 18, blood pressure 169/58. HEENT: Pupils are equal and round. Lungs: Clear in all lung barr. Cardiovascular: Regular rhythm and rate without murmur or S3. Urine Output: 1600 mL. Blood Sugar: 191, 245, 323. RADIOGRAPHS: Chest x-ray from today, stable chest. Lungs expanded. Heart is mildly prominent. There is increased interstitial markings throughout the lungs. The lungs are fairly similar to prior exam. No consolidation. No pleural effusions. ASSESSMENT AND PLAN: 1. Severe sepsis due to bilateral multifocal pneumonia, Escherichia coli, acute pyelonephritis, so the patient is on Zosyn. Chest x-ray looks better. 2. Left ureteropelvic junction stone. Severe left-sided hydronephrosis leading to acute pyelonephritis, acute cystitis, status post left ureteral stent and change of suprapubic catheter. Urology following. We will need outpatient followup in 1 to 2 weeks. 3. Anemia of chronic disease. Status post 1 unit of packed red blood cells, appropriate rise in hemoglobin. 4. Chronic kidney disease stage 5D, gets dialysis Mondays, Wednesdays, and Fridays. Nephrology is following. Volume status, electrolytes, and acid base look appropriate. 5. Right upper extremity swelling. She has a positive thrill and she is able to perform active movement in the wrist, elbow, shoulder, and interphalangeal joint. There is no undue erythema that we can appreciate so continue to monitor. 6. Continue home Levemir for insulin dependent diabetes mellitus and sliding scale. 7. She is on levothyroxine for hypothyroidism. 8. Blood pressure appears well controlled. 9. Hyperlipidemia. Aware. 10. She is on omeprazole for gastroesophageal reflux. 11. She is appropriate to move to the medical floor. She will need at least 2 weeks of antibiotics for bacteremia. This will begin after dialysis and coordination with the ethnic origins teacher. She would benefit from some physical therapy, and so we will work on her strength. REVIEW OF HER ORDERS: She is getting Eliquis 5 mg twice a day, aspirin 81 mg a day, calcium acetate 1334 mg t.i.d., vitamin D3 at 5000 units daily, Colace 200 mg p.o. daily, Prozac 20 mg daily, insulin detemir 45 units subcutaneously every a.m., lactobacillus 1 daily, Synthroid 50 mcg p.o. daily, Mevacor 20 mg daily, Prilosec 20 mg daily, vancomycin 1 gram after dialysis, and Zosyn 2.25 grams IV every 8 hours. LABORATORY DATA: Her labs from 01/16/2020, white count was 20,000. Today, electrolytes, sodium 129, potassium 3.9, chloride 92, BUN 51, creatinine 4.4. Blood sugars still running above 240, so we may make an adjustment with her insulin. She gets just 45 units. I am going to let her have 70/30. We will give her 8 units every a.m., before breakfast, and before lunch and see if it brings her sugars down a little bit. cc: Sherman Sorenson MD
[2020-01-17] MEDS: SANTYL OINT TOP SCH (12:00)
--- NOTE | 2020-01-17 15:09 | NEPHROLOGY PROGRESS NOTE ---
DATE: 01/17/2020 SUBJECTIVE: She admits to being a little bit short of breath today. No other complaints. She has been able to eat. No pain today. OBJECTIVE: Vital Signs: Blood pressure 169/58, heart rate 78, respiration 18, afebrile. General: In no acute distress. Skin: Warm and dry. Conjunctivae are pink. Neck: Neck veins are distended. Heart: Regular. Lungs: Equal, coarse with scattered crackles. Abdomen: Soft, nontender. Bowel sounds present. Extremities: 2+ edema. No clubbing or cyanosis. IMPRESSION: Chronic kidney disease 5D. She will have her next routine dialysis treatment today using a 3 potassium bath. Target 2 L ultrafiltration as tolerated. I believe the positive blood culture collected on January 15 was a contaminant. Continue to focus on her urosepsis. Okay to move to the floor from my perspective. cc: Khai Hannon MD
[2020-01-17] MEDS ORDERED: VANCOMYCIN 1 GM/NS 1 GM/250 ML IVPB IV ONE (17:00)
[2020-01-17] MEDS ORDERED: INSULIN PEN NEEDLES ONE (18:17)
[2020-01-17] MEDS: NOVOLOG MIX 70/30 SUBQ SCH (18:18)
[2020-01-17] MEDS: MEVACOR PO SCH (18:19)
[2020-01-18] MEDS: ZOSYN 2.25 GM in NS 50 ML IV SCH ×4 (00:40→23:37)
[2020-01-18] MEDS: DUONEB (A & A) INH SCH ×6 (02:56→22:46)
[2020-01-18] MEDS ORDERED: INSULIN PEN NEEDLES ONE (04:35)
[2020-01-18 05:37] LABS: BASO# 0.03 X1000 (0.0-0.2); BASO% 0.2 % (0.0-0.8); EOS# 0.41 X1000 (0.0-0.7); EOS% 2.3 % (0.0-10.0); HEMOGLOBIN 7.6 g/dL (12.0-16.0); IMM GRAN# 0.64 X1000 (0.0-0.04); IMM GRAN% 3.6 % (0.0-0.5); LYMPH# 1.01 X1000 (1.2-3.4); LYMPH% 5.7 % (20.5-51.1); MCH 26.8 PG (27-31); MCHC 30.4 g/dL (33-37); MONO% 6.2 % (1.7-9.3); MPV 10.1 FL (7.4-10.4); NEUT# 14.67 X1000 (1.4-6.5); PLT 290 X1000 (130-400); RBC 2.84 XMIL (4.2-5.4); RDW 15.9 % (11.5-14.5); WBC 17.86 X1000 (4.8-10.8)
[2020-01-18 06:04] LABS: ALBUMIN 2.3 g/dL (3.5-5.0); CALCIUM 8.2 mg/dL (8.8-10.2); CREATININE 3.1 mg/dL (0.5-0.9); PHOSPHORUS 3.1 mg/dL (2.7-4.5); POTASSIUM 3.3 mmol/L (3.5-5.1)
[2020-01-18] MEDS: HUMALOG SUBQ SCH ×4 (06:13→20:50)
[2020-01-18] MEDS: PRILOSEC PO SCH (06:15)
[2020-01-18] MEDS: SYNTHROID PO SCH (06:15)
[2020-01-18] MEDS: PHOSLO PO SCH ×3 (09:25→16:49)
[2020-01-18] MEDS: COLACE PO SCH (09:25)
[2020-01-18] MEDS: PROZAC PO SCH (09:25)
[2020-01-18] MEDS: ASPIRIN EC PO SCH (09:26)
[2020-01-18] MEDS: ELIQUIS PO SCH ×2 (09:26→20:50)
[2020-01-18] MEDS: LEVEMIR SUBQ SCH (09:28)
[2020-01-18] MEDS: VITAMIN D PO SCH (09:29)
[2020-01-18] MEDS: CULTURELLE PO SCH (09:29)
[2020-01-18] MEDS: NOVOLOG MIX 70/30 SUBQ SCH ×2 (09:42→16:50)
--- NOTE | 2020-01-18 11:34 | PROGRESS NOTE ---
DATE: 01/18/2020 SUBJECTIVE: Ms. Orellana was resting, sleeping. Her daughter was frustrated with her right arm being swollen and nobody seemed to be doing anything about it, and I explained we will get an ultrasound of it. She did wake up. She seemed to know she is in the hospital. OBJECTIVE: Vital signs: She has remained afebrile, temperature 97.6 degrees, pulse 79, respirations 18, blood pressure 139/46. Pupils are equal and round. Lungs are clear in all lung barr. Cardiovascular: Regular rhythm rate without murmur or S3. URINE OUTPUT: 1000 mL. LABORATORY DATA: Blood sugars 323, 118, 125 and 226. ASSESSMENT AND PLAN: 1. Chronic kidney disease stage 5D. Continue routine dialysis. They are using a 3 potassium bath. Target is 2 L ultrafiltration. The positive blood culture on January 15 appears to be a contaminant. Continue to focus on her urosepsis, her urinary tract infection. 2. Left ureteropelvic junction stone, severe left-sided hydronephrosis leading to acute pyelonephritis, acute cystitis, status post left ureteral stent and change of suprapubic catheter. 3. Presented with severe sepsis, bilateral multifocal pneumonia and acute pyelonephritis. 4. Anemia of chronic disease. Received 1 unit of packed red blood cells. We will continue to follow hemoglobin and hematocrit. 5. Right upper extremity swelling. Positive thrill. She is able to perform active movement of the elbow and shoulder. No undue erythema. We will go ahead and get an ultrasound of that arm and make sure it is not deep venous thrombosis. 6. Diabetes mellitus type 2. Continue Levemir. Follow sugars. 7. Levothyroxine she takes for hypothyroidism. Appears to be euthyroid. 8. Blood pressure controlled. 9. Hyperlipidemia. 10. She is on omeprazole proton pump inhibitor for gastroesophageal prophylaxis. Daughter requests we get her some of the pecan shakes that she likes and encourage her to eat. cc: Sherman Sorenson MD
[2020-01-18] MEDS: MEVACOR PO SCH (16:49)
[2020-01-18] MEDS: SANTYL OINT TOP SCH (18:35)
[2020-01-19] MEDS: DUONEB (A & A) INH SCH ×6 (02:53→22:46)
[2020-01-19 06:09] LABS: ALBUMIN 2.2 g/dL (3.5-5.0); CALCIUM 8.3 mg/dL (8.8-10.2); CREATININE 3.9 mg/dL (0.5-0.9); PHOSPHORUS 4.1 mg/dL (2.7-4.5); POTASSIUM 3.7 mmol/L (3.5-5.1)
[2020-01-19] MEDS: NOVOLOG MIX 70/30 SUBQ SCH ×2 (06:24→16:32)
[2020-01-19] MEDS: SYNTHROID PO SCH (06:24)
[2020-01-19] MEDS: PRILOSEC PO SCH (06:24)
[2020-01-19] MEDS: HUMALOG SUBQ SCH ×4 (06:26→21:00)
[2020-01-19] MEDS: PROZAC PO SCH (09:22)
[2020-01-19] MEDS: CULTURELLE PO SCH (09:22)
[2020-01-19] MEDS: COLACE PO SCH (09:22)
[2020-01-19] MEDS: ELIQUIS PO SCH ×2 (09:22→22:29)
[2020-01-19] MEDS: VITAMIN D PO SCH (09:22)
[2020-01-19] MEDS: ASPIRIN EC PO SCH (09:22)
[2020-01-19] MEDS: PHOSLO PO SCH ×3 (09:22→16:02)
[2020-01-19] MEDS: LEVEMIR SUBQ SCH (09:23)
[2020-01-19] MEDS: ZOSYN 2.25 GM in NS 50 ML IV SCH ×2 (09:23→16:01)
[2020-01-19] MEDS: SANTYL OINT TOP SCH (09:24)
--- NOTE | 2020-01-19 13:18 | PROGRESS NOTE ---
DATE: 01/19/2020 SUBJECTIVE: Ms. Orellana is more awake today. Her daughter was at the bedside. She slept a little bit, a couple hours at a time last night. Still not eating much at all. Her swelling seems to have gone down, swelling down in the right arm. OBJECTIVE: Vital Signs: Temp 98.1 degrees, pulse 80, respirations 19, blood pressure 147/48. HEENT: Pupils are equal and round. Lungs: Clear in all lung barr anterolateral. Cardiovascular: Regular rhythm and rate without murmur or S3. Abdomen: Soft. Skin: Warm and dry. Blood sugar is 184, 213, 261. ASSESSMENT AND PLAN: 1. Chronic kidney disease stage 5D. Gets routine dialysis. Volume status, electrolytes, and acid base look good. 2. Left ureteropelvic junction stone, left-sided hydronephrosis leading to acute pyelonephritis, acute cystitis, status post left ureteral stent, change of suprapubic catheter. 3. Severe sepsis, multifocal pneumonia, acute pyelonephritis, which I think is improving. 4. Anemia of chronic disease. Received 1 unit of packed red blood cells. Continue to follow hemoglobin and hematocrit. 5. Right upper extremity swelling. Positive thrill. Will get the noninvasive study on her arm at daughter's request, but the swelling seems to be going down. 6. Diabetes mellitus type 2, on Levemir. 7. Takes levothyroxine for her hypothyroidism. She appears to be euthyroid. 8. Blood pressure is controlled. 9. Hyperlipidemia. 10. She is taking omeprazole for history of gastroesophageal reflux and gastrointestinal prophylaxis. REVIEW OF ORDERS: I do not see any change at this point, and she is on apixaban 5 mg b.i.d. LABORATORY DATA: Her lab from yesterday was reviewed. Blood sugars have been 171, 217, 213, 184, and 261. cc: Sherman Sorenson MD
[2020-01-19] MEDS: MEVACOR PO SCH (16:02)
[2020-01-20] MEDS: ZOSYN 2.25 GM in NS 50 ML IV SCH (00:49)
[2020-01-20] MEDS: DUONEB (A & A) INH SCH ×5 (02:58→20:20)
[2020-01-20 06:02] LABS: BASO# 0.04 X1000 (0.0-0.2); BASO% 0.1 % (0.0-0.8); EOS# 0.07 X1000 (0.0-0.7); EOS% 0.2 % (0.0-10.0); HEMATOCRIT 31.8 % (37.0-47.0); IMM GRAN% 0.7 % (0.0-0.5); LYMPH# 0.56 X1000 (1.2-3.4); LYMPH% 1.8 % (20.5-51.1); MCH 28.2 PG (27-31); MCHC 31.4 g/dL (33-37); MCV 89.6 FL (81-99); MONO# 0.69 X1000 (0.11-0.59); MONO% 2.3 % (1.7-9.3); MPV 10.1 FL (7.4-10.4); NEUT# 28.74 X1000 (1.4-6.5); NEUT% 94.9 % (42.2-75.2); PLT 340 X1000 (130-400); RBC 3.55 XMIL (4.2-5.4); RDW 16.5 % (11.5-14.5)
[2020-01-20] MEDS: SYNTHROID PO SCH ×2 (06:40→06:45)
[2020-01-20] MEDS: PRILOSEC PO SCH ×2 (06:40→06:45)
[2020-01-20] MEDS: NOVOLOG MIX 70/30 SUBQ SCH ×2 (06:41→17:15)
[2020-01-20] MEDS: HUMALOG SUBQ SCH ×4 (06:41→22:27)
[2020-01-20] MEDS ORDERED: NS 2,000 ML MISC PRN (06:49)
[2020-01-20] MEDS ORDERED: TIGHT: 0.2 ML/HR FOR DIALYSIS MISC PRN (06:49)
[2020-01-20] MEDS ORDERED: HEPARIN IV PRN (06:49)
[2020-01-20 07:56] LABS: ANISOCYTOSIS 1+; BANDS 4 % (0-1); HYPOCHROM 1+; LYMPHS 4 % (21-51); MONO 2 % (1-9); SEGS 90 % (42-75)
--- NOTE | 2020-01-20 10:41 | NEPHROLOGY PROGRESS NOTE ---
DATE: 01/20/2020 SUBJECTIVE: Patient is seen during dialysis. She states that she "does not feel well today." OBJECTIVE: Vital Signs: Temperature 98.5 degrees, pulse 109, respiratory rate 22, blood pressure 134/47. Intake 240 mL and output 600 mL. General: Chronically ill-appearing elderly female resting in bed. She is slightly lethargic, but will rouse and verbalize appropriately. HEENT: Normocephalic, atraumatic. Conjunctivae are pale. Oral mucosa is dry. Neck: Supple with trace JVD. Cardiovascular: Regular rate and rhythm with a murmur. Pulmonary: She is clear bilaterally. There is no wheeze or rhonchi noted. She does have shallow rapid respiratory effort. Abdomen: Soft with positive bowel sounds. Extremities: 1+ to 2+ edema. Integumentary: Skin is warm and dry. LABORATORY DATA: WBC of 13.3, hemoglobin 10. Sodium 130, potassium 3.7, CO2 25, creatinine 3.9. Her chemistries are from yesterday. ASSESSMENT AND PLAN: 1. Routine dialysis day. Dialyze 3K bath 2 L UF 3 hour treatment. 2. Urosepsis on Zosyn. I will change to Ceftaz for to finish her treatment because of her rash. rg 3. Electrolytes and acid-base balance. See above for plan. 4. Anemia. She has received packed red blood cells. Continue to monitor. Dictated by BENJAMIN Rand for Khai Hannon MD Face to face encounter, data reviewed, discussed with Eddie Lopez on 01/20/20. I agree with the above assessment and plan of care. agapito cc: Khai Hannon MD [facility]
[2020-01-20] MEDS ORDERED: [UNRECOGNIZED DRUG - OTHER] IV SCH (12:00)
[2020-01-20] MEDS: ASPIRIN EC PO SCH (12:26)
[2020-01-20] MEDS: PHOSLO PO SCH ×3 (12:26→17:17)
[2020-01-20] MEDS: TAZIDIME 2 GM/NS 2 GM/100 ML IVPB IV SCH (12:26)
[2020-01-20] MEDS: PROZAC PO SCH (12:27)
[2020-01-20] MEDS: COLACE PO SCH (12:27)
[2020-01-20] MEDS: CULTURELLE PO SCH (12:28)
[2020-01-20] MEDS: VITAMIN D PO SCH (12:28)
[2020-01-20] MEDS: ELIQUIS PO SCH ×2 (12:28→21:58)
[2020-01-20] MEDS: BENADRYL PO PRN ×2 (12:29→21:54)
[2020-01-20] MEDS: LEVEMIR SUBQ SCH (12:40)
--- NOTE | 2020-01-20 14:00 | PROGRESS NOTE ---
DATE: 01/20/2020 SUBJECTIVE: Ms. Orellana is a little more awake. She had a rough night according to daughter. She just did not sleep much and was short of breath. She just finished her dialysis treatment and she is breathing better now. Seems to have decreased swelling, especially in the right arm. She is still pretty weak. She still has no appetite and does not want to eat. OBJECTIVE: Vital Signs: Temperature 99.5 degrees, pulse 90, respirations 19, blood pressure 100/63. HEENT: Pupils are equal and round. Lungs: Clear in all lung barr. Cardiovascular: Regular rhythm and rate without murmur or S3. Abdomen: Soft. Skin is warm and dry. Urine output is 1800 mL. LABORATORY DATA: Blood sugar 213, 135,210, 132. ASSESSMENT/PLAN: 1. Chronic kidney disease stage 5D. Continue dialysis. I think she still has some volume overload. Continue to try and get fluid down. She is breathing better apparently after dialysis this morning. 2. Left ureteropelvic junction stone with left-sided hydronephrosis leading to acute pyelonephritis, acute cystitis, status post left ureteral stent. Change suprapubic catheter. 3. Severe sepsis multifocal pneumonia, acute pyelonephritis, which appears to be improving. 4. Anemia of chronic disease. She has received 1 unit of packed red blood cells. Continue to follow hematocrit and hemoglobin. 5. Right upper extremity swelling which seems to be going down. There is a positive thrill and will get noninvasive venous study at the daughter's request. 6. Diabetes mellitus type 2, on Levemir. Blood sugars look well controlled. 7. Takes levothyroxine for hypothyroidism. She appears euthyroid. 8. Blood pressure controlled. 9. Hyperlipidemia. 10. Taking omeprazole for gastroesophageal reflux and gastrointestinal prophylaxis 11. Review of her orders: She is taking Tylenol 325 mg q.6 hours, Eliquis 5 mg b.i.d., aspirin 81 mg a day, ceftazidime 2 g IV q.48 hours, vitamin D3 5000 units a day, Colace 200 mg a day, Prozac 20 mg a day, lactobacillus rhamnosus 1 tablet daily, Synthroid 50 mcg daily, Mevacor 20 mg at 5 p.m. daily. Prilosec 20 mg daily and she is on vancomycin 1 g after each dialysis. REVIEW OF LABS: Her lab from today ,white count was elevated at 30,300; hematocrit was 31, platelet count is 340,000. She has had some itching and I believe her micro showed blood culture coagulase-negative staphylococcus 1/2, which I believe was contaminant. She had Escherichia coli from her urine and it was negative for extended beta lactamase. It was sensitive to ceftriaxone and resistant to Levaquin. We will see about which antibiotics we are going to continue. cc: Sherman Sorenson MD
[2020-01-20] MEDS: TYLENOL PO PRN ×2 (14:08→21:58)
[2020-01-20] MEDS ORDERED: VANCOMYCIN 1 GM/NS 1 GM/250 ML IVPB IV ONE (17:00)
[2020-01-20] MEDS: MEVACOR PO SCH (17:21)
[2020-01-20] MEDS: SANTYL OINT TOP SCH (18:03)
[2020-01-20] MEDS ORDERED: BENADRYL IV ONE (21:43)
[2020-01-20] MEDS ORDERED: DECADRON IV ONE (21:44)
[2020-01-20] MEDS ORDERED: SODIUM CHLORIDE 0.9% INJ ONE (21:44)
[2020-01-20] MEDS ORDERED: PEPCID IV ONE (21:44)
[2020-01-21] MEDS: DUONEB (A & A) INH SCH ×7 (00:16→23:12)
[2020-01-21] MEDS: SYNTHROID PO SCH (06:31)
[2020-01-21] MEDS: PRILOSEC PO SCH (06:32)
[2020-01-21] MEDS: HUMALOG SUBQ SCH ×4 (06:32→21:26)
[2020-01-21] MEDS: NOVOLOG MIX 70/30 SUBQ SCH ×2 (06:32→17:13)
--- NOTE | 2020-01-21 09:37 | PROGRESS NOTE ---
DATE: 01/21/2020 SUBJECTIVE: She was eating breakfast. She is more awake and alert, so her daughter is encouraged. OBJECTIVE: Vital Signs: She remains afebrile. Temperature 97.4 degrees, pulse 92, respirations 14, blood pressure 134/44. HEENT: Pupils are equal and round. Lungs: Clear in all lung barr. Cardiovascular: Regular rhythm and rate without murmur or S3. Abdomen: Soft. Skin: Warm and dry. Urine Output: 1200 mL. ASSESSMENT AND PLAN: 1. Chronic kidney disease stage 5D. Continue hemodialysis. Volume status looks good. Electrolytes look good. 2. Left ureteropelvic junction stone with left-sided hydronephrosis leading to an acute pyelonephritis, acute cystitis, status post left ureteral stent placement, status post suprapubic catheter change. 3. Severe sepsis, multifocal pneumonia, acute pyelonephritis. This appears improved. 4. Anemia of chronic disease. She did get 1 unit packed red blood cells. 5. Right upper extremity swelling. No signs of deep vein thrombosis. 6. Diabetes mellitus type 2 on Levemir. 7. She is on levothyroxine for history of primary hypothyroidism. She appears euthyroid. 8. Blood pressure is controlled. 9. Hyperlipidemia. 10. She is on omeprazole for gastrointestinal prophylaxis. REVIEW OF HER ORDERS: I do not see any change, and she is on Eliquis 5 mg twice a day, aspirin 81 mg a day, Prozac 20 mg a day, Colace 200 mg daily, Synthroid 50 mcg daily. She gets vancomycin 1 gram after each dialysis. Her cultures, she had Escherichia coli, and it was negative for extended-spectrum beta-lactamase producing and sensitive to amikacin and cefepime and ceftriaxone. So, we discussed when we can go back to [facility], looks like we are getting close. I also discussed whether we need to continue her Vancomycin. cc: Sherman Sorenson MD
[2020-01-21] MEDS: COLACE PO SCH (09:51)
[2020-01-21] MEDS: PHOSLO PO SCH ×3 (09:51→17:13)
[2020-01-21] MEDS: ASPIRIN EC PO SCH (09:51)
[2020-01-21] MEDS: ELIQUIS PO SCH ×2 (09:51→21:26)
[2020-01-21] MEDS: LEVEMIR SUBQ SCH (09:51)
[2020-01-21] MEDS: CULTURELLE PO SCH (09:51)
[2020-01-21] MEDS: VITAMIN D PO SCH (09:51)
[2020-01-21] MEDS: PROZAC PO SCH (09:51)
--- NOTE | 2020-01-21 14:25 | PROVIDER PROGRESS NOTE ---
Progress Note Subjective: She denies any uremic complaints. She is sitting up in the bed eating breakfast. Daughter is at bedside. Objective: temperature 97.4, pulse 85, respirations 19, blood pressure 134/44, O2 sat 100% on 2 L nasal cannula. General: elderly white female lying in bed in no obvious distress. HEENT: normocephalic, atraumatic, pupils equal and reactive, conjunctiva are pink, mucous membranes dry. Neck: supple, 6cm JVD appreciated. Cardiovascular: s1s2, regular rate and rhythm, No gallop or murmur. Respiratory: lungs clear to auscultation anteriorly with equal air entry Abdomen: soft, nontender, nondistended. Bowel sounds present. : suprapubic in place with adequate urine output. Extremities: no clubbing or cyanosis. Trace edema to the BLE. Neurological: alert and oriented to person, place, and time. Labs: zero intake recorded, 1075 output. 900 mL of that was from Dialysis. Impression: Chronic kidney disease stage 5D. She had her routine hemodialysis treatment yesterday with a 900mL ultrafiltration. There were no complications reported. No change in plan. Urosepsis. On Ceftaz. Last dose tomorrow. Rash presumably from zosyn. Not present at this time but patient still reports flare ups. PRN Benadryl in place. Will monitor for now. Blood pressure. Stable. Fluid volume. Nutrition. Improved today. Medication review. No changes.
[2020-01-21] MEDS: MEVACOR PO SCH (17:13)
[2020-01-22] MEDS: SANTYL OINT TOP SCH ×2 (00:07→17:06)
[2020-01-22] MEDS: TYLENOL PO PRN (01:11)
[2020-01-22] MEDS: BENADRYL PO PRN ×2 (01:52→13:16)
[2020-01-22] MEDS: DUONEB (A & A) INH SCH ×4 (03:08→16:03)
[2020-01-22 05:26] LABS: HEMATOCRIT 23.3 % (37.0-47.0); HEMOGLOBIN 7.2 g/dL (12.0-16.0); MCH 27.9 PG (27-31); MCHC 30.9 g/dL (33-37); MCV 90.3 FL (81-99); RBC 2.58 XMIL (4.2-5.4); RDW 16.2 % (11.5-14.5); WBC 13.66 X1000 (4.8-10.8)
[2020-01-22 05:51] LABS: ALBUMIN 2.5 g/dL (3.5-5.0); CALCIUM 8.6 mg/dL (8.8-10.2); CREATININE 4.8 mg/dL (0.5-0.9); PHOSPHORUS 3.8 mg/dL (2.7-4.5); POTASSIUM 3.6 mmol/L (3.5-5.1)
[2020-01-22] MEDS: HUMALOG SUBQ SCH ×3 (06:13→16:27)
[2020-01-22] MEDS: PRILOSEC PO SCH (06:16)
[2020-01-22] MEDS: SYNTHROID PO SCH (06:16)
[2020-01-22] MEDS: NOVOLOG MIX 70/30 SUBQ SCH ×2 (06:16→16:32)
[2020-01-22] MEDS ORDERED: TIGHT: 0.2 ML/HR FOR DIALYSIS MISC PRN (06:25)
[2020-01-22] MEDS ORDERED: HEPARIN IV PRN (06:25)
[2020-01-22] MEDS ORDERED: NS 2,000 ML MISC PRN (06:25)
--- NOTE | 2020-01-22 08:02 | Extremity Venous Study ---
PROCEDURE NAME: Venous U/S Right Arm - 01/20/2020 DATE OF STUDY: 01/20/2020. PREVIOUS COMPARISON: From 01/25/2018. REQUESTING PHYSICIAN: Dr. Sorenson. STARTER CUP POWDER MIXER: Gonzalo. INDICATIONS: Swelling. EQUIPMENT: Motion Engine[employer] E9 ultrasound system with a 9 L-D transducer. FINDINGS: Images in the right internal jugular vein, subclavian vein, axillary vein, and brachial vein were obtained with attention given to flow. There appears to be no obvious superficial or deep venous thrombosis noted. Per the roving technician's note, the patient is confused and would not stop moving to evaluate the left subclavian vein. INTERPRETATION: Normal right upper extremity venous study with no obvious superficial or deep venous thrombosis noted. The patient is confused, so this may limit the interpretive ability of this study. The patient could not cooperate. cc: MD Sherman Lozano MD
--- NOTE | 2020-01-22 12:18 | DISCHARGE SUMMARY ---
ADMISSION DATE: 01/10/2020 DISCHARGE DATE: 01/22/2020 HISTORY OF PRESENT ILLNESS: She is going back [facility] on 01/22/2020. Her doctor is Dr. Benito De Dios. She came in on 01/10/2020 with possible urinary tract infection and fever. A 74-year-old female presented to [facility] on 01/10/2020m called by [facility] due to patient having fever and possible UTI. It was noted around her suprapubic catheter to have some drainage and redness. The urine was also noted to be very cloudy with a lot of sediment and strong odor. When she arrived, temperature was 101.3 degrees, blood pressure is 102/58 and it dropped to 87/58. Approximately 1 hour after arriving, she received her second liter of normal saline. White blood cell count was 11,560. Her hemoglobin was 7, hematocrit 24. Her previous hemoglobin was done on 11/29/2019 and was 12.9, hematocrit was 11/29/2019 at 39.1, and so she was admitted to the hospital once again. PAST MEDICAL HISTORY: 1. End-stage renal disease on dialysis Mondays, Wednesdays, and Fridays. 2. Congestive heart failure. 3. COPD. 4. Diabetes mellitus type 2. 5. History of DVT on anticoagulant. 6. Hypothyroidism. 7. Hypertension. 8. Hyperlipidemia. 9. Gastroesophageal reflux disease. 10. Melanoma. PAST SURGICAL HISTORY: 1. Status post hysterectomy. 2. Tonsillectomy. 3. Right knee surgery. 4. Suprapubic catheter placement. 5. History of hernia repair. 6. Bilateral tubal ligation. 7. Fistula placed in the right arm. ADMISSION DIAGNOSES: 1. Urinary tract infection, sepsis. 2. Possibility of bilateral pneumonia. We will treat that empirically too. 3. Urinary tract infection. 4. Anemia. 5. End-stage renal disease on dialysis Mondays, Wednesdays, and Fridays. 6. Volume status, she did not appear to be volume overloaded. 7. Diabetes mellitus type 2. 8. Hypotension and concern that she has urinary tract infection with potential sepsis. IMAGING STUDIES: 1. Her chest x-ray on 01/10: There is likely a combination of fibrosis and pneumonia. No sign of infiltrate. 2. Her abdominal CT on 01/10/2020 showed large obstructing left urinary pelvic junction stone with rather severe left hydronephrosis, severe right renal atrophy. Able to appreciate a little bit of splenomegaly, chronic urinary bladder thickening indicating cystitis. HOSPITAL COURSE: Nephrology was asked to see Dr. Hannon, who knows her and he followed her for chronic kidney disease and continued routine dialysis. He had vancomycin and she was on Zosyn every 8 hours adjusted for renal doses. Dr. Ray was asked to see and he did surgery on 01/11/2020, a cystoscopic evaluation with a large amount of purulent hardened material from the bladder. Left ureteropelvic junction stone, hydronephrosis, urosepsis, plus copious amounts of purulent material in the bladder, plus poorly draining suprapubic tube. So the suprapubic tube was changed as well. Dr. Francis put in a femoral catheter line placement. She was diagnosed with phlebosclerosis. She had poor IV vein selection and felt that she needed a central line, so he put in an ultrasound-guided right femoral catheter line. She showed steady improvement. She was pretty weak and lethargic, and daughter concerned. Was not eating much. She had a chest CT done on 01/14/2020. She has bilateral pulmonary scarring, questionable scattered small acute infiltrates versus progressive scarring appreciated. Her infection seemed to improve. Bilateral lower lobe pneumonia was treated with E coli, acute pyelonephritis. Continued IV antibiotics. She had a left ureteral stent placed. She will need outpatient followup in a couple weeks for extracorporeal shock and lithotripsy and cystoscopy. It was noted she has anemia of chronic disease, and we did give her 1 unit of packed red blood cells. Continued to dialyze routine and she showed steady improvement. Started eating a little bit. Daughter concerned about the swelling in her right arm. So, we did a noninvasive, did not see any deep venous thrombosis there, and felt she could go home on 01/22/2020. We had stopped her Zosyn because she had some urticaria and some itching. Looking at her cultures, it grew out Escherichia coli from 01/10/2020, which was resistant to Levaquin, ceftazidime and resistant to cefazolin. Feel like she had adequate drainage and pretty good antibiotic treatment. [place] like we could stop the antibiotics. There was no growth in blood cultures from 01/15/2020. We did an influenza drug screen. She was negative for influenza A and B; that was a nasopharyngeal swab. So, plan to let her go back to [facility] and will continue her medications. DISCHARGE MEDICATIONS: She is on: 1. Amlodipine 10 mg at bedtime. 2. Eliquis 5 mg b.i.d. 3. Aspirin 81 mg a day. 4. Coreg 25 mg b.i.d. 5. Colace 200 mg a day. 6. Vitamin D 2 5000 units p.o. daily. 7. Prozac 20 mg a day. 8. Getting Levemir 45 units subcutaneous q.a.m. 9. Acidophilus 1 capsule daily. 10. Synthroid 50 mcg p.o. daily. 11. Lovastatin 20 mg at bedtime. 12. Omeprazole 20 mg a day. DISCHARGE DISPOSITION: Wanted to continue physical therapy and probably would benefit from occupational therapy as well. Encourage her p.o. intake. She will need follow-up with Urology in regards to her stone and lithotripsy in the next 2 weeks, and she will follow up with Dr. Hannon. cc: Sherman Sorenson MD
[2020-01-22] MEDS: PHOSLO PO SCH ×3 (12:46→16:31)
[2020-01-22] MEDS: VITAMIN D PO SCH (12:47)
[2020-01-22] MEDS: ELIQUIS PO SCH (12:47)
[2020-01-22] MEDS: ASPIRIN EC PO SCH (12:47)
[2020-01-22] MEDS: LEVEMIR SUBQ SCH (12:47)
[2020-01-22] MEDS: PROZAC PO SCH (12:47)
[2020-01-22] MEDS: COLACE PO SCH (12:47)
[2020-01-22] MEDS: CULTURELLE PO SCH (12:47)
[2020-01-22] MEDS: TAZIDIME 2 GM/NS 2 GM/100 ML IVPB IV SCH (12:53)
[2020-01-22 16:11] VITALS: BP 149/48
[2020-01-22] MEDS: MEVACOR PO SCH (16:32)
--- NOTE | 2020-01-22 16:57 | PROVIDER PROGRESS NOTE ---
Progress Note Subjective: She complains of shortness of breath that has been present since admission. It has not gotten any worse. She voices less itching. She reports adequate appetite and has been drinking liquids. Objective: temperature 97.7, pulse 78, blood pressure 132/47 respirations 19, O2 sat 100% on 2 L nasal cannula. General: elderly white female lying in bed in no obvious distress. HEENT: normocephalic, atraumatic, pupils equal and reactive, conjunctiva are pink, mucous membranes dry. Neck: supple, 6cm JVD appreciated. Cardiovascular: s1s2, regular rate and rhythm, No gallop or murmur. Respiratory: lungs clear to auscultation anteriorly with equal air entry Abdomen: soft, nontender, nondistended. Bowel sounds present. : suprapubic in place with adequate urine output. Extremities: no clubbing or cyanosis. Trace edema to the BLE. Neurological: alert and oriented to person, place, and time. Labs: WBC 13.66, hemoglobin 7.2, hematocrit 23.3, platelet count 16.2, sodium 136, potassium 3.6, chloride 94, carbon dioxide 26, BUN 71, creatinine 4.8. Intake zero reported in, output 300. Impression: Chronic kidney disease stage 5D. She will have her routine hemodialysis treatment with a 3k bath, out patient dry weight ultrafiltration, for 3.5 hours or as tolerated. Urosepsis. On Ceftaz. Last dose today Rash presumably from zosyn. She reports less itching today. PRN Benadryl in place. Will monitor for now. Blood pressure. Stable. Anemia. Low, we will transfuse 1 unit of PRBCs during hemodialysis. Fluid volume. Euvolemic. Nutrition. Improving per self report. Medication review. No changes.
[2020-01-22] MEDS ORDERED: VANCOMYCIN 1 GM/NS 1 GM/250 ML IVPB IV ONE (17:00)
== END 2020-01-22 17:42 | DRG 853 ==
LOC: SUPCPDRO → ED 06:25 → EDIPHOLD 09:08 → SUATTDRO 09:08 → 2N 14:23 → 3N 01-12 13:45 → ICU 01-14 17:32 → 1N 01-17 23:24
PROVIDERS: ATTEND Emergency Medicine

== ENCOUNTER 2020-02-09 18:42 | Inpatient (IN) ==
[2020-02-09] MEDS ORDERED: NS 1,000 ML IV ONE (18:56)
[2020-02-09] MEDS ORDERED: MERREM 1 GM in NS 50 ML IV ONE (18:59)
[2020-02-09 19:27] LABS: BASO# 0.03 X1000 (0.0-0.2); BASO% 0.2 % (0.0-0.8); EOS# 0.37 X1000 (0.0-0.7); EOS% 2.6 % (0.0-10.0); HEMATOCRIT 29.5 % (37.0-47.0); HEMOGLOBIN 9.1 g/dL (12.0-16.0); IMM GRAN# 0.07 X1000 (0.0-0.04); IMM GRAN% 0.5 % (0.0-0.5); LYMPH# 0.94 X1000 (1.2-3.4); LYMPH% 6.7 % (20.5-51.1); MCH 26.8 PG (27-31); MCHC 30.8 g/dL (33-37); MCV 86.8 FL (81-99); MONO# 0.87 X1000 (0.11-0.59); MONO% 6.2 % (1.7-9.3); MPV 10.1 FL (7.4-10.4); NEUT# 11.72 X1000 (1.4-6.5); NEUT% 83.8 % (42.2-75.2); PLT 351 X1000 (130-400); RDW 15.7 % (11.5-14.5)
[2020-02-09 19:30] LABS: INR 1.43; PROTIME 17.7 Seconds (11.0-16.0)
[2020-02-09 19:31] LABS: PTT 37.7 Seconds (22.3-41.8)
[2020-02-09 20:11] LABS: ALB/GLOB RATIO 1.5; ALBUMIN 3.5 g/dL (3.5-5.0); POTASSIUM 5.1 mmol/L (3.5-5.1); TOTAL BILIRUBIN 0.2 mg/dL (0.20-1.00); TOTAL PROTEIN 5.8 g/dL (6.3-8.3)
--- NOTE | 2020-02-09 20:29 | Diag Imaging Result Doc PS360 ---
EXAM: CHEST-1 VIEW INDICATION: septic workup TECHNIQUE: One view COMPARISON: 01/17/2020 FINDINGS: There are increased interstitial markings bilaterally with a slight basilar predominance. This is very similar to the previous study. Consider interstitial edema, possibly with a background of fibrosis. There is no definite pleural fluid collection or pneumothorax. The cardiac silhouette is unremarkable. The central vasculature is slightly prominent suggesting likely mild pulmonary venous congestion. IMPRESSION: Likely mild pulmonary venous congestion and increased interstitial markings bilaterally that is similar to the previous study. Electronically signed by Too Park 02/09/2020 8:26 PM
--- NOTE | 2020-02-09 20:42 | EKG Report ---
Test Performed on : 02/09/2020 8:37:38 PM Test Reason : TROP Blood Pressure : / mmHG Vent. Rate : 070 BPM Atrial Rate : 070 BPM P-R Int : 264 ms QRS Dur : 126 ms QT Int : 456 ms P-R-T Axes : 063 -59 -23 degrees QTc Int : 492 ms Sinus rhythm. with 1st degree AV block. Left axis deviation Right bundle branch block Minimal voltage criteria for LVH, may be normal variant Abnormal ECG When compared with ECG of 24-MAY-2019 11:18, Sinus rhythm. has replaced Wide QRS rhythm. Unconfirmed Result
[2020-02-09 20:46] LABS: URINE SOURCE CATH
--- NOTE | 2020-02-09 20:55 | PROVIDER DOCUMENTATION ---
This chart was entered by Farhana Chambers Scribe, acting as scribe for Akosua Jerez MD. HPI-Female /OB/Breast - General Stated Complaint: uti symptoms Time Seen by Provider: 02/09/20 18:48 Source: reports: patient, EMS, [place] [facility] records Allergies/Adverse Reactions: Patient Allergies Allergy/AdvReac Type Severity Reaction Status Date / Time ceftazidime [From Tazidime] Allergy Unknown Verified 02/09/20 19:35 piperacillin [From Zosyn] Allergy Unknown Verified 02/09/20 19:35 tazobactam [From Zosyn] Allergy Unknown Verified 02/09/20 19:35 Home Medications: Home Medication List Medication Instructions Recorded Confirmed Last Taken Type Acetaminophen 325 mg PO Q6H PRN 01/10/20 01/10/20 Unknown History Amlodipine Besylate 10 mg PO QHS 01/10/20 01/10/20 Unknown History Apixaban [Eliquis] 5 mg PO BID 01/10/20 01/10/20 Unknown History Aspirin [Aspirin EC] 81 mg PO DAILY 01/10/20 01/10/20 Unknown History Calcium Acetate [Phoslo] 2 cap PO TID 01/10/20 01/10/20 Unknown History Carvedilol [Coreg] 25 mg PO BID 01/10/20 01/10/20 Unknown History Docusate Sodium 200 mg PO DAILY 01/10/20 01/10/20 Unknown History Ergocalciferol (Vitamin D2) 5,000 unit PO DAILY 01/10/20 01/10/20 Unknown History [Ergocal] Fluoxetine HCl [Prozac] 20 mg PO DAILY 01/10/20 01/10/20 Unknown History Glucagon,Human Recombinant 1 mg IM Q15M PRN PRN 01/10/20 01/10/20 Unknown History [Glucagon Emergency Kit] Insulin Detemir [Levemir] 45 units SQ QAM 01/10/20 01/10/20 Unknown History Lactobacillus Acidophilus 1 cap PO DAILY 01/10/20 01/10/20 Unknown History [Acidophilus] Levothyroxine [Synthroid] 50 microgm PO 0700 01/10/20 01/10/20 Unknown History Lovastatin 20 mg PO QHS 01/10/20 01/10/20 Unknown History Omeprazole 20 mg PO DAILY 01/10/20 01/10/20 Unknown History Insulin Novolog 70/30 [Novolog Mix 8 unit SUBQ BID AC insuln.pen 01/22/20 Unknown Rx ] - History of Present Illness-Female /OB Nature of Presenting Problem: 74 y/o female presents to the ED via EMS from [facility] with multiple antibiotic resistant ecoli UTI. EMS states the patient has been being treated with Levaquin for UTI at the [place] [facility] and culture resulted today showing resistance to Levaquin. EMS states the patient was sent here for IV a ntibiotic treatment as they are not able to perform this at their facility. Records show the patient is allergic to Zosyn and Tazidime. The patient also states she is on dialysis Monday, Monday, and Monday with right arm port. Does patient report she is ?: No Onset/Duration: reports: unsure Timing: reports: still present Urinary Symptoms: reports: other ("purple urine") Associated Symptoms: denies: fever/chills Similar Symptoms Previously?: Yes Recently seen or treated by another doctor?: Yes Review of Systems - Adult - REVIEW OF SYSTEMS - ADULT Constitutional: denies: fever, night sweats, weight loss Eyes: reports: no symptoms reported Ears, Nose, Mouth & Throat: reports: no symptoms reported Cardiovascular: reports: no symptoms reported Respiratory: reports: no symptoms reported Gastrointestinal: denies: diarrhea, nausea, vomiting Genitourinary: reports: other (known UTI and "purple urine"). denies: frequency Musculoskeletal: reports: no symptoms reported Integumentary: reports: no symptoms reported Neurological: reports: no symptoms reported Psychiatric: reports: no symptoms reported Endocrine: reports: no symptoms reported Hematologic/Lymphatic: reports: no symptoms reported Allergic/Immunologic: reports: no symptoms reported All Other Systems: Reviewed and Negative Past History - Adult - PAST MEDICAL HISTORY-ADULT Review of Records: reports: Old Records Reviewed, Nursing Assessment Review, Medications Reviewed Major Childhood Illnesses: reports: denies history Cardiovascular: reports: CHF, HTN, hyperlipidemia Respiratory: reports: asthma, COPD Gastrointestinal: reports: GERD Obstetrical/Gynecological: reports: denies history Genitourinary: reports: dialysis (MWF hemodialysis), ESRD, kidney disease, chronic UTI's, other (indwelling flores) Musculoskeletal: reports: denies history Neurological: reports: dementia Psychiatric: reports: depression Endocrine/Immune: reports: Diabetes, thyroid disorder (hypo) Other Conditions: reports: other cancer (melanoma) - PRIOR SURGERIES/PROCEDURES Surgical/Procedure History: reports: hysterectomy, BTL, indwelling device (PICC LINE), tonsillectomy, orthopedic (extremity) (arthroscopy), joint replacement (Left Hip), other (cystoscopy; fistula R upper arm) - IMMUNIZATION STATUS Childhood Immunizations: See Nurse Assessment Flu Vaccine: See Nurse Assessment - FAMILY HISTORY Family History: reviewed, not pertinent - SOCIAL HISTORY Smoking: non-smoker Living Situation: care facility [facility] Physical Exam-General - PHYSICAL EXAM-ADULT Initial Vital Signs Reviewed: Yes - CONSTITUTIONAL General Appearance: alert - GASTROINTESTINAL (ABDOMEN) Abdominal Exam: tenderness (suprapubic) - GENITOURINARY Female Genitalia/Pelvic Exam: deferred, external exam normal, other (fowl smelling purple urine in catheter) - MUSCULOSKELETAL Extremity: pedal edema (nonpitting bilateral), other (RUE dialysis port) - SKIN Integumentary: warm/dry. negative: diaphoresis - NEUROLOGIC Neurologic: grossly normal - PSYCHIATRIC Psych/Mental Status: normal mood/affect, oriented x 3 Progress - PLAN OF CARE/RESULTS Progress/Plan/Lab Results: Vital Signs - 8 hr 02/09/20 18:54 Temperature 98.7 F Pulse Rate 65 Respiratory Rate 20 Blood Pressure 130/51 O2 Sat by Pulse Oximetry 100 Laboratory Results - last 24 hr 02/09/20 02/09/20 02/09/20 19:07 19:07 19:07 WBC 14.00 H RBC 3.40 L Hgb 9.1 L Hct 29.5 L MCV 86.8 MCH 26.8 L MCHC 30.8 L RDW Std Deviation 15.7 H Plt Count 351 MPV 10.1 Immature Gran % (Auto) 0.5 Neut % (Auto) 83.8 H Lymph % (Auto) 6.7 L Ramsey % (Auto) 6.2 Eos % (Auto) 2.6 Baso % (Auto) 0.2 Immature Gran # (Auto) 0.07 H Neut # (Auto) 11.72 H Lymph # (Auto) 0.94 L Ramsey # (Auto) 0.87 H Eos # (Auto) 0.37 Baso # (Auto) 0.03 PT INR PTT (Actin FS) Sodium 131 L Potassium 5.1 Chloride 92 L Carbon Dioxide 23 L Anion Gap 16 BUN 72 H Creatinine 6.0 H Estimated GFR/1.73 m2 7 BUN/Creatinine Ratio 12 Glucose 166 H Calculated Osmolality 288 Calcium 9.0 Total Bilirubin 0.20 AST 15 ALT 16 Alkaline Phosphatase 127 H Troponin T High Sens Txe-F-Tuostpsndli Pept Total Protein 5.8 L Albumin 3.5 Globulin 2.3 Albumin/Globulin Ratio 1.5 Plasma Lactate 1.7 Urine Source 02/09/20 02/09/20 02/09/20 19:07 19:07 19:07 WBC RBC Hgb Hct MCV MCH MCHC RDW Std Deviation Plt Count MPV Immature Gran % (Auto) Neut % (Auto) Lymph % (Auto) Ramsey % (Auto) Eos % (Auto) Baso % (Auto) Immature Gran # (Auto) Neut # (Auto) Lymph # (Auto) Ramsey # (Auto) Eos # (Auto) Baso # (Auto) PT 17.7 H INR 1.43 PTT (Actin FS) 37.7 Sodium Potassium Chloride Carbon Dioxide Anion Gap BUN Creatinine Estimated GFR/1.73 m2 BUN/Creatinine Ratio Glucose Calculated Osmolality Calcium Total Bilirubin AST ALT Alkaline Phosphatase Troponin T High Sens 156 H* Tak-H-Yrbcclhknou Pept > 13526 H Total Protein Albumin Globulin Albumin/Globulin Ratio Plasma Lactate Urine Source 02/09/20 20:42 WBC RBC Hgb Hct MCV MCH MCHC RDW Std Deviation Plt Count MPV Immature Gran % (Auto) Neut % (Auto) Lymph % (Auto) Ramsey % (Auto) Eos % (Auto) Baso % (Auto) Immature Gran # (Auto) Neut # (Auto) Lymph # (Auto) Ramsey # (Auto) Eos # (Auto) Baso # (Auto) PT INR PTT (Actin FS) Sodium Potassium Chloride Carbon Dioxide Anion Gap BUN Creatinine Estimated GFR/1.73 m2 BUN/Creatinine Ratio Glucose Calculated Osmolality Calcium Total Bilirubin AST ALT Alkaline Phosphatase Troponin T High Sens Lgp-G-Jooyepibbvf Pept Total Protein Albumin Globulin Albumin/Globulin Ratio Plasma Lactate Urine Source CATH Orders Category Date Time Status Saline Loc NOW Care 02/09/20 18:56 Active CHEST-1 VIEW [RAD] Stat Exams 02/09/20 19:08 Completed BLOOD CULTURE [BLDCUL] Stat Lab 02/09/20 19:50 Results CBC WITH ELECTRONIC DIFF [HEME] Stat Lab 02/09/20 19:07 Completed COMPREHENSIVE METABOLIC PANEL [CHEM] Stat Lab 02/09/20 19:07 Completed LACTATE, PLASMA [CHEM] Stat Lab 02/09/20 19:07 Completed PROTIME WITH INR [COAG] Stat Lab 02/09/20 19:07 Completed PTT [COAG] Stat Lab 02/09/20 19:07 Completed TROPONIN T HIGH SENSITIVITY Stat Lab 02/09/20 19:07 Completed UA NIMS W/REFLEX CULT [URINALYSIS] Stat Lab 02/09/20 20:42 Results URINE MANUAL MICROSCOPIC [URINALYSIS] Stat Lab 02/09/20 20:42 Results pro-bnp [PRO B-NATRIURETIC PEPTIDE] Stat Lab 02/09/20 19:07 Completed 0.9% Sodium Chloride Inj [Ns] 1,000 ml Med 02/09/20 18:56 Discontinued IV 999 mls/hr Meropenem [Merrem] 1 gm Med 02/09/20 18:59 Discontinued 0.9% Sodium Chloride Inj [Ns] 50 ml IV NOW EKG [EKG] Stat Ther 02/09/20 19:07 Draft Result Diagrams: 02/09/20 19:07 02/09/20 19:07 - REASSESSMENT Reassessment #1 Status: unchanged (pateint with multi drug resistent Ecoli UTI presnts from [place] with Cultures, case discussed with Dr Mack mccoyist will admit UTI, CRF, Abn card enzymes.) - EKG 1 Time of EKG reading by physician:: 20:39 EKG Read and Signed by:: Akosua Jerez EKG Interpretation (*Must complete 3 of following elements*): Abnormal Rate: 70 Rhythm: sinus rhythm with 1st degree AV block [place]: left ST Wave: non-specific ST changes (and T wave changes) Comments: right BBB, minimal voltage criteria for LVH may be normal variant - XRAY 1 XRAY Study: Chest (EXAM: CHEST-1 VIEW INDICATION: septic workup TECHNIQUE: One view COMPARISON: 01/17/2020 FINDINGS: There are increased interstitial markings bilaterally with a slight basilar predominance. This is very similar to the previous study. Consider interstitial edema, possibly with a background of fibrosis. There is no definite pleural fluid collection or pneumothorax. The cardiac silhouette is unremarkable. The central vasculature is slightly prominent suggesting likely mild pulmonary venous congestion. IMPRESSION: Likely mild pulmonary venous congestion and increased interstitial markings bilaterally that is similar to the previous study. Electronically signed by Too Park 02/09/2020 8:26 PM) Comparison with other Films: no changes - CONSULTS/PCP/HOSPITALIST Notification #1 *Consult/PCP/Hospitalist*: Dr. Giron Time Discussed: 20:48 Reason/Comments: UTI, elevated troponin Consult Disposition: Admit Departure - Departure Date of Disposition Decision: 02/09/20 Time of Disposition Decision: 20:41 DIAGNOSIS: E. coli UTI, Kidney disease, chronic, stage V (end stage, EGFR < 15 ml/min), Elevation of cardiac enzymes UTI (urinary tract infection) Qualifiers: Urinary tract infection type: catheter-associated UTI Indwelling urinary catheter type: indwelling urethral catheter Encounter type: initial encounter Qualified Code(s): T83.511A - Infection and inflammatory reaction due to indwelling urethral catheter, initial encounter; N39.0 - Urinary tract infection, site not specified CHF (congestive heart failure) Qualifiers: Heart failure type: unspecified Heart failure chronicity: acute on chronic Qualified Code(s): I50.9 - Heart failure, unspecified Disposition: ADMITTED INPATIENT 09 Certified Medical Emergency: Urgent Condition: Stable Referrals and Follow-Ups: Benito De Dios MD [Primary Care Provider] - - Critical Care Note This patient required my direct & personal management of CC.: Yes Total Time (mins): 33 Critical Care Statement: This patient required my direct personal management to treat or rule out processes, the absence of which, could potentiallly result in sudden, clinically significant life or limb threatening deterioration. Attestation - Physician/ ADELAIDA Attestation Patient care was provided by Advanced Practice Provider:: No The physician spent face to face time with patient:: Yes Advanced Practice Provider documentation review:: Supervising physician onsite and consulted in the evaluation and care of this patient. The physician did have a face to face encounter with the patient. This chart was documented by the indicated scribe, (Farhana Chambers Scribe) and accurately reflects the services I performed and decisions made by me, Akosua Jerez MD, as attested by the provider's signature.
[2020-02-09 21:13] LABS: BILIRUBIN URINE NEGATIVE (NEGATIVE); BLOOD URINE LARGE (NEGATIVE); COLOR BROWN; GLUCOSE URINE NEGATIVE (NEGATIVE); KETONE URINE NEGATIVE (NEGATIVE); LEUKOCYTES URINE LARGE (NEGATIVE); NITRITE URINE NEGATIVE (NEGATIVE); PH URINE 8.5; PROTEIN URINE 600 mg/dL (NEGATIVE); SP GRAVITY URINE 1.014; TURBIDITY URINE TURBID (CLEAR); UR EPITHELIAL CELLS <10 /HPF (<10); URINE BACTERIA 4+ /HPF; URINE CASTS NONE SEEN; URINE CRYSTALS NONE SEEN; URINE RBC TNTC /HPF (<10); URINE SMALL ROUND CELLS NONE SEEN; URINE WBC TNTC /HPF (<10); URINE YEAST NONE SEEN; UROBILINOGEN URINE NORMAL (NORMAL)
--- NOTE | 2020-02-09 21:42 | HISTORY AND PHYSICAL ---
PRIMARY CARE PHYSICIAN: Unknown. CHIEF COMPLAINT: UTI. HISTORY OF PRESENTING ILLNESS: A 74-year-old elderly female with a history of end-stage renal disease, chronic UTI, CHF, COPD, diabetes mellitus type 2, who was sent from [facility] due to patient having a UTI that was multiresistant. The patient is moderately confused and not much information could be obtained from patient and most of the history is obtained from previous medical records and documentation by halfway. PAST MEDICAL HISTORY: Includes end-stage renal disease on dialysis Monday, Monday, Monday, CHF, COPD, diabetes mellitus type 2, DVT, hypothyroidism, hypertension, hyperlipidemia, GERD, melanoma. PAST SURGICAL HISTORY: Hysterectomy, tonsillectomy, right knee surgery, suprapubic catheter, hernia repair, fistula right upper extremity. ALLERGIES: Ceftazidime, piperacillin, tazobactam. CURRENT MEDICATIONS: Acetaminophen 325 mg p.o. q.6 hours, amlodipine 10 mg p.o. at bedtime, Eliquis 5 mg p.o. b.i.d., aspirin 81 mg p.o. daily, carvedilol 25 mg p.o. b.i.d., fluoxetine 20 mg p.o. daily, Levemir 45 units subcutaneous q.a.m., NovoLog mix 70/30 of 8 units subcutaneous b.i.d., levothyroxine 50 mcg p.o. daily, lovastatin 20 mg p.o. at bedtime, omeprazole 20 mg p.o. daily. SOCIAL HISTORY: No history of smoking, alcohol or illicit drug use. She is a resident of [facility]. FAMILY HISTORY: No history of coronary artery disease. REVIEW OF SYSTEMS: Limited due to patient being confused. PHYSICAL EXAMINATION: GENERAL: The patient is resting comfortably. However, she is moderately confused. Unclear what her baseline is. VITAL SIGNS: Temperature 98.7 degrees, pulse 65, respirations 20, blood pressure 130/51. HEENT: Atraumatic, normocephalic. Extraocular movements intact. PERRLA. NECK: No masses. CHEST: Clear to auscultation. CARDIOVASCULAR: Regular rate and rhythm. ABDOMEN: Soft. Positive bowel sounds. EXTREMITIES: Trace edema. NEUROLOGIC: She is awake, alert, oriented x1. GENITOURINARY: No bladder distention. SKIN: Warm. LABORATORIES AND STUDIES: WBCs 14.0, hemoglobin 9.1, hematocrit 29.5, platelets 351,000. Sodium 131, potassium 5.1, chloride 92, CO2 is 23, BUN is 72, creatinine 6.0, glucose is 166. ProBNP is 35,000. Troponin high sensitivity is 156. Chest x-ray shows some pulmonary venous congestion. ASSESSMENT: A 74-year-old elderly female with a history of end-stage renal disease, congestive heart failure, chronic obstructive pulmonary disease, diabetes mellitus type 2, chronic urinary tract infection, who apparently had a urinalysis done several days ago which showed that she had multi drug-resistant organism growing. It seems that she will require IV antibiotic. Subsequently, she was sent from the [facility] to [facility]. At the time of my examination, she was moderately confused, unclear what her baseline is. However, she will need admission for further management. 1. Complicated urinary tract infection multi-drug resistant. 2. Altered mental status, unclear what baseline is. 3. End-stage renal disease, on renal dialysis Monday, Monday, Monday. 4. Elevated troponin in the setting of renal failure. 5. Congestive heart failure. 6. Chronic obstructive pulmonary disease. 7. Diabetes mellitus type 2. PLAN: 1. We will admit patient to medical floor with telemetry. 2. We will check urine cultures again and start patient on IV antibiotics. 3. Continue to monitor neuro status. 4. Schedule patient for dialysis. 5. We will trend her troponins. 6. Continue with DuoNebs p.r.n. 7. Monitor blood glucose. Put the patient on sliding scale insulin regimen. 8. The patient is on Eliquis and that will suffice for DVT prophylaxis. 9. We will continue to follow and reassess, make further recommendation based on patient's clinical course. cc: Pancho Giron MD
[2020-02-09] MEDS ORDERED: ZOFRAN IV PRN (22:32)
[2020-02-09] MEDS: HUMULIN R SUBQ SCH (23:36)
[2020-02-10] MEDS: INVANZ 1 GM/NS 1 GM/50 ML IVPB IV SCH (05:35)
[2020-02-10 05:58] LABS: BASO# 0.02 X1000 (0.0-0.2); BASO% 0.2 % (0.0-0.8); EOS# 0.26 X1000 (0.0-0.7); HEMATOCRIT 26.7 % (37.0-47.0); HEMOGLOBIN 8.2 g/dL (12.0-16.0); IMM GRAN# 0.04 X1000 (0.0-0.04); IMM GRAN% 0.3 % (0.0-0.5); LYMPH# 0.71 X1000 (1.2-3.4); LYMPH% 5.6 % (20.5-51.1); MCH 26.6 PG (27-31); MCHC 30.7 g/dL (33-37); MCV 86.7 FL (81-99); MONO% 7.9 % (1.7-9.3); MPV 10.1 FL (7.4-10.4); NEUT# 10.69 X1000 (1.4-6.5); PLT 318 X1000 (130-400); RBC 3.08 XMIL (4.2-5.4); RDW 15.6 % (11.5-14.5); WBC 12.72 X1000 (4.8-10.8)
[2020-02-10 06:14] LABS: CALCIUM 8.2 mg/dL (8.8-10.2); CREATININE 6.2 mg/dL (0.5-0.9); POTASSIUM 4.7 mmol/L (3.5-5.1)
[2020-02-10] MEDS ORDERED: HEPARIN IV PRN (06:21)
[2020-02-10] MEDS ORDERED: TIGHT: 0.2 ML/HR FOR DIALYSIS MISC PRN (06:21)
[2020-02-10] MEDS ORDERED: NS 2,000 ML MISC PRN (06:21)
[2020-02-10] MEDS: HUMULIN R SUBQ SCH ×4 (06:58→21:35)
[2020-02-10] MEDS ORDERED: GLUCAGON IM PRN (10:28)
--- NOTE | 2020-02-10 11:02 | NEPHROLOGY CONSULTATION ---
DATE: 02/09/2020 Time seen at 7:30. CHIEF COMPLAINT: "I am not sure why I am here". HISTORY OF PRESENTING ILLNESS: Ms Orellana is a 74-year-old white female with a past medical history of end-stage renal disease with hemodialysis on Monday, Monday, and Monday, chronic UTIs with indwelling suprapubic catheter, congestive heart failure, COPD, and type 2 diabetes mellitus. She is a long-term resident at [facility]. Staff noted that she was moderately confused and not following commands well yesterday. She was sent to the Emergency Department where her laboratory data revealed a white count of 14. Her urinalysis was abnormal with 4+ bacteria, brown and turbid in color with large blood and leukocytes. She was admitted for further treatment and evaluation of complicated urinary tract infection requiring IV antibiotics. It was noted in her last admission in December that she was here with a 16 mm obstructing left ureteral stone. Dr. Ray placed a left ureteral stent and performed a cystoscopy. She was to follow up in a few weeks after discharge for potential extracorporeal shock and lithotripsy. As far as we are aware, that has not been done yet. We were consulted for end- stage renal disease and hemodialysis management. PAST MEDICAL HISTORY: End-stage renal disease with hemodialysis on Monday, Monday, and Monday. Congestive heart failure, COPD, diabetes mellitus type 2, DVT, hypothyroidism, hypertension, hyperlipidemia, GERD, melanoma, recent 16 mm left ureteral obstructing stone. PAST SURGICAL HISTORY: Hysterectomy, tonsillectomy, right knee surgery, suprapubic catheter placement, hernia repair, fistula to the right upper extremity and recent cystoscopy with left ureteral stent placement. SOCIAL HISTORY: The patient has a resident at [facility]. She denies any alcohol, tobacco, or illicit drug use. FAMILY HISTORY: Noncontributory. ALLERGIES: Ceftazidime, piperacillin, tazobactam. HOME MEDICATIONS: Acetaminophen, amlodipine, apixaban, aspirin, calcium acetate, carvedilol, docusate sodium, ergocalciferol, fluoxetine HCL, glucagon emergency kit, Levemir, NovoLog 70/30, acidophilus, levothyroxine, lovastatin, and omeprazole. REVIEW OF SYSTEMS: A 14 point review of system complete, all pertinent positive positives listed above in HPI. PHYSICAL EXAM: Vitals: Temperature 99 degrees, pulse 70, respirations 22, blood pressure 128/45, O2 saturation 100% on 2 L nasal cannula. General: Elderly white female lying in bed, in no acute distress. HEENT: Atraumatic, normocephalic. Pupils equal and reactive. Mucous membranes moist. Skin: Warm and dry. Neck: Supple, 6 cm JVD with hepatojugular reflex and. Cardiovascular: S1, S2. Regular rate and rhythm. No gallop noted. Respiratory: Clear to auscultation with equal air entry anteriorly. Abdomen: Soft, obese, nontender, nondistended. Bowel sounds active. : Not inspected. Suprapubic catheter in place. Extremities: 1+ pitting edema to bilateral lower extremities. Neurological: She is alert and oriented to person, place. Flat affect. LABORATORY DATA: WBC 12.72, hemoglobin 8.2, hematocrit 26.7, platelet count 318,000, sodium 133, potassium 4.7, chloride 98, carbon dioxide 21, BUN 76, creatinine 6.2. Urinalysis: Color brown, turbidity turbid, protein 600, blood large, leukocytes large, WBC TNTC, RBC TNTC, bacteria 4+. IMAGING: Chest x-ray impression: Mild pulmonary venous congestion and increased interstitial markings bilaterally that is similar to previous study. ASSESSMENT AND PLAN: 1. Chronic kidney disease stage 5D. Patient will receive her routine hemodialysis with a 2K bath for 3.5 hours and attempt ultrafiltration to last outpatient dry weight. 2. Blood pressure. In target. 3. Fluid volume. Slightly expanded. The patient will have her routine hemodialysis to help with management. 4. Anemia. Low, stable. Does not meet transfusion criteria. 5. Electrolytes and acid-base balance. These are acceptable. We will help manage with hemodialysis. 6. Nutrition, diet in place. Adequate intake per documentation. 7. Physical deconditioning. Defer to primary. 8. Medication review: Her meropenem has been discontinued. She is now on Invanz 1 g every 24 hours. Urine culture is still pending. We will follow this closely. 9. Complicated urinary tract infection. Her IV antibiotics were dosed appropriately at this time. We will monitor for results of urine culture. At this time, I would like to thank you for allowing us to follow up with this patient. Dictated by BENJAMIN Stanley for Khai Hannon MD Face to face encounter, data reviewed, discussed with Tan Bangura on 02/10/20. I agree with the above assessment and plan of care. cc: Khai Hannon MD [facility]
--- NOTE | 2020-02-10 13:58 | Diag Imaging Result Doc PS360 ---
KUB ABDOMEN - 02/10/2020 INDICATION: JJ stent placement COMPARISON: 11/29/2019 FINDINGS: There is a left nephroureteral stent in good position. There are also may be a suprapubic catheter. There is a nonobstructive bowel gas pattern. No free air or abnormal calcifications. IMPRESSION: Left nephroureteral stent in good position. Electronically signed by Mac Enriquez 02/10/2020 1:55 PM
--- NOTE | 2020-02-10 14:00 | PROGRESS NOTE ---
DATE: 02/10/2020 SUBJECTIVE: Patient has no major complaints. OBJECTIVE: Blood pressure 128/45, heart rate 70, respiratory rate 22, temperature 99 degrees, 100% on 2 L. Cardiovascular: Regular rate and rhythm. Pulmonary: Bilateral breath sounds clear to auscultation. GI: Soft, nontender, nondistended. Bowel sounds were positive. White count 12, hemoglobin and hematocrit 8 and 26, platelets 318,000. BUN and creatinine 76 and 6.2. PROBLEM LIST: Urinary tract infection with altered mentation. Waiting on culture results. She has had resistant ones in the past. We probably need to use carbapenem. She had an Escherichia coli but it was not extended-spectrum B-lactamase. It was sensitive to cefepime and it was actually on the 13th. I do not know if she has been on antibiotics. She is allergic to ceftazidime and Zosyn so we will use meropenem, I guess, renally dosed. I guess we could do Invanz possibly. That is once a day. She is on ertapenem once a day so that is a safe option. I do not know if there is any way we could figure out a way to dose things without. cc: Domingo Francis MD
[2020-02-10] MEDS: PHOSLO PO SCH ×2 (14:59→16:42)
[2020-02-10] MEDS: TYLENOL PO PRN (16:41)
[2020-02-10] MEDS ORDERED: INSULIN PEN NEEDLES ONE (17:18)
[2020-02-10] MEDS: NOVOLOG MIX 70/30 SUBQ SCH (17:19)
--- NOTE | 2020-02-10 18:03 | CONSULTATION ---
DATE OF CONSULTATION: 02/10/2020 ATTENDING AND REFERRING PHYSICIAN: Hospitalist. HISTORY OF PRESENT ILLNESS: This 74-year-old female who lives at [facility] was brought to the emergency room for an E. Coli ESBL negative urinary tract infection that was resistant to all oral antibiotics tested. The patient is confused. The patient was recently in the hospital with a urinary tract infection, and was noted to have a 16 mm left UPJ stone with severe left hydronephrosis as well as right renal atrophy. She had an indwelling double-J stent placed that is there at present. The patient is somewhat confused and does not answer questions appropriately. PAST MEDICAL HISTORY: End-stage renal disease on dialysis Monday, congestive heart failure, COPD, diabetes, history of DVT, hypothyroidism, hypertension, elevated cholesterol, gastroesophageal reflux disease, and history of melanoma. PAST SURGICAL HISTORY: Bilateral tubal ligation. Right upper arm AV fistula. Hernia repair. Right knee arthroplasty. Tonsillectomy. Hysterectomy. Suprapubic tube placed. Melanoma excision. SOCIAL HISTORY: Resides in a [facility]. No tobacco or alcohol use. ALLERGIES: She is allergic to ceftazidime, piperacillin and tazobactam. She is somewhat confused and does not answer questions appropriately. PHYSICAL EXAMINATION: General: A normally developed, well-nourished, age apparent white female who is cooperative. HEENT: Normal for age. Lungs: Clear. Cardiovascular: Regular rate and rhythm with holosystolic murmur. Abdomen: Protuberant. Soft and nontender. No hepatosplenomegaly or masses. Normal bowel sounds. Back: No CVA tenderness. There is suprapubic tube in place draining reddish urine. Genitourinary: Deferred. Extremities: No clubbing, cyanosis, or edema. Neurological: No focal deficits. LABORATORY EVALUATION: She has a white count of 12.72, hemoglobin 8.2, hematocrit 26.7, and platelets are 318,000. Serum sodium is 133, potassium 4.7, chloride 98, bicarb 21, BUN 76, and creatinine 6.2. IMPRESSION: 1. E. coli urinary tract infection with associated mental status changes. 2. Indwelling left double-J stent secondary to a 17 mm left UPJ stone. 3. Neurogenic bladder with indwelling suprapubic tube. RECOMMENDATIONS: 1. Continue broad-spectrum IV antibiotics until culture results are known. 2. Obtain KUB to verify double-J stent in good position. 3. Thank you for this consultation. cc: Yeyo Orta MD
[2020-02-10] MEDS: ELIQUIS PO SCH (21:35)
[2020-02-10] MEDS: NORVASC PO SCH (21:35)
[2020-02-10] MEDS: MEVACOR PO SCH (21:35)
[2020-02-10] MEDS: COREG PO SCH (21:35)
[2020-02-11] MEDS: INVANZ 1 GM/NS 1 GM/50 ML IVPB IV SCH (04:25)
[2020-02-11 05:19] LABS: BASO# 0.02 X1000 (0.0-0.2); BASO% 0.2 % (0.0-0.8); EOS# 0.16 X1000 (0.0-0.7); EOS% 1.4 % (0.0-10.0); HEMATOCRIT 27.1 % (37.0-47.0); HEMOGLOBIN 8.2 g/dL (12.0-16.0); IMM GRAN# 0.05 X1000 (0.0-0.04); IMM GRAN% 0.5 % (0.0-0.5); LYMPH# 0.72 X1000 (1.2-3.4); LYMPH% 6.5 % (20.5-51.1); MCH 26.6 PG (27-31); MCHC 30.3 g/dL (33-37); MONO# 0.98 X1000 (0.11-0.59); MONO% 8.8 % (1.7-9.3); MPV 9.7 FL (7.4-10.4); NEUT# 9.16 X1000 (1.4-6.5); NEUT% 82.6 % (42.2-75.2); PLT 312 X1000 (130-400); RBC 3.08 XMIL (4.2-5.4); RDW 15.8 % (11.5-14.5); WBC 11.09 X1000 (4.8-10.8)
[2020-02-11 05:59] LABS: CALCIUM 8.7 mg/dL (8.8-10.2); CREATININE 3.4 mg/dL (0.5-0.9); POTASSIUM 3.8 mmol/L (3.5-5.1)
[2020-02-11] MEDS: HUMULIN R SUBQ SCH ×4 (06:52→22:17)
[2020-02-11] MEDS: SYNTHROID PO SCH (06:52)
[2020-02-11] MEDS: PRILOSEC PO SCH (06:52)
[2020-02-11] MEDS: NOVOLOG MIX 70/30 SUBQ SCH ×2 (07:45→18:01)
--- NOTE | 2020-02-11 09:28 | NEPHROLOGY PROGRESS NOTE ---
DATE: 02/11/2020 TIME SEEN AT 06:30.: SUBJECTIVE: Patient lying in bed, resting, eyes closed, aroused to verbal stimuli. She denies any complaints. OBJECTIVE: Vital Signs: Temperature 98 degrees, pulse 81, respirations 19, blood pressure 133/41, O2 saturation 97% on 2 L nasal cannula. General: Chronically ill- appearing elderly white female lying in bed, in no acute distress. HEENT: Normocephalic, atraumatic. Mucous membranes moist. Pupils equal and reactive. Skin: Warm and dry. Neck: Supple, 6 cm JVD noted. Cardiovascular: S1, S2. Regular rate and rhythm. Systolic murmur noted. No gallop. Respiratory: Clear to auscultation with equal air entry. Abdomen: Soft, nontender, nondistended. Bowel sounds active. Genitourinary: Not inspected. Suprapubic catheter in place. Extremities: Trace edema to bilateral lower extremities. Neurologic: She is alert, oriented to person, place. LABORATORY DATA: WBC 11.09, hemoglobin 8.2, hematocrit 27.1, platelet count 312,000. Sodium 135, potassium 3.8, chloride 97, carbon dioxide 25, BUN 39, creatinine 3.4. Intake 120, output 7160. ASSESSMENT AND PLAN: 1. Chronic kidney disease stage 5D. The patient had her routine hemodialysis yesterday with a 6.8 L ultrafiltration without any complications. We will continue her on her routine schedule. 2. Blood pressure in target. 3. Fluid volume. Euvolemic on exam. 4. Anemia. Low but stable. Does not meet transfusion criteria. 5. Electrolytes and acid-base balance. These are acceptable. 6. Nutrition. Inadequate per documentation. Encouraged to eat and we will add a supplement to her diet. MEDICATION REVIEW: An 81 mg aspirin, vitamin D, restarted from home med list. This is Ana Bangura, nurse-practitioner, dictating progress note for Dr. Khai Hannon. I would like to thank you for allowing us to follow with this patient. Dictated by BENJAMIN Stanley for Khai Hannon MD Face to face encounter, data reviewed, discussed with Tan Bangura. I agree with the above assessment and plan of care. cc: Khai Hannon MD [facility]
[2020-02-11] MEDS: ASPIRIN EC PO SCH (09:33)
[2020-02-11] MEDS: PHOSLO PO SCH ×3 (09:33→18:01)
[2020-02-11] MEDS: COREG PO SCH ×2 (09:34→20:46)
[2020-02-11] MEDS: VITAMIN D PO SCH (09:34)
[2020-02-11] MEDS: COLACE PO SCH (09:34)
[2020-02-11] MEDS: PROZAC PO SCH (09:34)
[2020-02-11] MEDS: CULTURELLE PO SCH (09:34)
[2020-02-11] MEDS: ELIQUIS PO SCH ×2 (09:34→20:46)
[2020-02-11] MEDS: LEVEMIR SUBQ SCH (10:24)
--- NOTE | 2020-02-11 16:27 | PROGRESS NOTE ---
DATE: 02/11/2020 SUBJECTIVE: The patient has no major complaints. OBJECTIVE: Blood pressure is 133/44, heart rate of 65, respiratory rate of 17, temperature 98.2 degrees. She has had a temp up to 101, most recent was 99. She is growing out gram-negative rods out of her urine. PROBLEM LIST: 1. UTI, gram-negative rods, so we will continue antibiotics. I think she is on ertapenem right now. This will be day 1. 2. End-stage renal. She is on dialysis per Renal recommendations. 3. Type 2 diabetes is stable. DISPOSITION: Anticipate discharge once we can get culture results and she is afebrile for 24 hours. cc: Domingo Francis MD
--- NOTE | 2020-02-11 19:02 | PROGRESS NOTE ---
DATE: 02/11/2020 SUBJECTIVE: Ms. Orellana states she is feeling fine. She denies flank pain. Her urine culture is growing gram-negative rods. OBJECTIVE: Vital signs: Temperature 98.2 degrees, pulse 65, BP 133/44. General: No acute distress. Pleasant female. Abdomen: Nontender, nondistended. Back: No CVA tenderness. : Urine is clear via Snell catheter. PERTINENT LABS: White cell count is 11,000. Creatinine is 3.4. It was 6.2 yesterday. Potassium is 3.8. ASSESSMENT: A 74-year-old female with end-stage renal disease who resides at a assisted. She has had recurrent urinary tract infections and was admitted a month ago with urosepsis. She had a 16 mm left ureteropelvic junction stone with obstruction for which she underwent cystoscopy with left ureteral stent placement. She is currently being treated for urinary tract infections. We have final culture pending. I have discussed with the patient that given her large stone and ureteral stent, she would benefit from extracorporeal shockwave lithotripsy and cystoscopy with left ureteral stent removal in order to complete her stone treatment. She voiced understanding, but I am not sure about the extent of her understanding. She told me that "Darcy" is her daughter who helps make decisions. I have asked the nursing staff to help me get in touch with her daughter in order to discuss definitive treatment. If okay with hospitalist colleagues, we can proceed with left extracorporeal shockwave lithotripsy and cystoscopy with left ureteral stent removal on 02/13/2020. Please note that she was supposed to follow up with me after the procedure a month ago, but apparently that was not done. PLAN: 1. Continue current care. 2. If she is not discharged and okay with hospitalist colleagues, will preliminarily plan for left extracorporeal shockwave lithotripsy with cystoscopy and left ureteral stent removal on 02/13/2020. 3. We will follow. cc: Fausto Ray MD
[2020-02-11] MEDS: NORVASC PO SCH (20:46)
[2020-02-11] MEDS: TYLENOL PO PRN (20:46)
[2020-02-11] MEDS: MEVACOR PO SCH (20:46)
[2020-02-12] MEDS: INVANZ 1 GM/NS 1 GM/50 ML IVPB IV SCH (04:35)
[2020-02-12] MEDS: PRILOSEC PO SCH (05:59)
[2020-02-12] MEDS: SYNTHROID PO SCH (05:59)
[2020-02-12] MEDS: NOVOLOG MIX 70/30 SUBQ SCH ×2 (06:01→16:50)
[2020-02-12] MEDS: HUMULIN R SUBQ SCH ×4 (06:01→22:11)
[2020-02-12 06:05] LABS: ALBUMIN 2.8 g/dL (3.5-5.0); CALCIUM 8.8 mg/dL (8.8-10.2); CREATININE 4.4 mg/dL (0.5-0.9); PHOSPHORUS 4.4 mg/dL (2.7-4.5); POTASSIUM 4.3 mmol/L (3.5-5.1)
[2020-02-12] MEDS ORDERED: HEPARIN IV PRN (06:11)
[2020-02-12] MEDS ORDERED: TIGHT: 0.2 ML/HR FOR DIALYSIS MISC PRN (06:11)
[2020-02-12] MEDS ORDERED: NS 2,000 ML MISC PRN (06:11)
--- NOTE | 2020-02-12 09:22 | NEPHROLOGY PROGRESS NOTE ---
DATE: 02/12/2020 DATE OF SERVICE: 02/12/2020. TIME SEEN: 0800 hours. SUBJECTIVE: Patient lying in bed, resting with her eyes closed. She was easily aroused by verbal stimuli. She denies any uremic complaints. OBJECTIVE: Vitals: Temperature 97.6 degrees, pulse 58, respirations 21, blood pressure 122/37, and O2 saturation 100% on 2 L nasal cannula. General: Chronically ill- appearing elderly white female, lying in bed in no acute distress. HEENT: Normocephalic, atraumatic. Mucous membranes moist. Pupils equal and reactive. Skin: Warm and dry. Neck: Supple. An 8 cm JVD with no hepatojugular reflux. Cardiovascular: S1, S2. Regular rate and rhythm with systolic murmur noted. No gallop. Respiratory: Clear to auscultation with equal air entry. Abdomen: Soft, nontender, nondistended. Bowel sounds are active. : Not inspected. Suprapubic catheter in place. Extremities: No edema, clubbing or cyanosis. Neurological: Alert and oriented to person, place, and time. LABS: Sodium 135, potassium 4.3, chloride 96, carbon dioxide 26. BUN 59, creatinine 4.4. Intake 850; output 600. IMPRESSION: 1. Chronic kidney disease stage 5 D. Patient will have her routine hemodialysis treatment with a 2 potassium bath and attempt ultrafiltration to last postdialysis weight over 3-1/2 hours. We will continue to monitor. 2. Complicated urinary tract infection with 16 mm obstructive stone. She is scheduled to have lithotripsy tomorrow per Dr. Orta. 3. Blood pressure, stable. 4. Fluid volume slightly expanded. The patient will have hemodialysis to help with management. 5. Anemia. Stable on last labs. 6. Electrolytes and acid-base balance. These are acceptable. 7. Nutrition. Adequate. Improving. 8. Medication review: Prozac started back yesterday. I would like to thank you for allowing us to follow up with this patient. Dictated by BENJAMIN Stanley for Khai Hannon MD Face to face encounter, data reviewed, discussed with Tan Bangura on 02/12/20. I agree with the above assessment and plan of care. cc: Khai Hannon MD [facility]
[2020-02-12] MEDS: COLACE PO SCH (12:56)
[2020-02-12] MEDS: PHOSLO PO SCH ×3 (12:56→16:52)
[2020-02-12] MEDS: ASPIRIN EC PO SCH (12:56)
[2020-02-12] MEDS: VITAMIN D PO SCH (12:57)
[2020-02-12] MEDS: COREG PO SCH ×2 (12:57→22:12)
[2020-02-12] MEDS: PROZAC PO SCH (12:57)
[2020-02-12] MEDS: CULTURELLE PO SCH (12:57)
[2020-02-12] MEDS: ELIQUIS PO SCH ×2 (12:57→22:12)
[2020-02-12] MEDS: LEVEMIR SUBQ SCH (13:33)
--- NOTE | 2020-02-12 17:29 | PROGRESS NOTE ---
DATE: 02/12/2020 SUBJECTIVE: Patient has no major complaints. OBJECTIVE: Vital signs: Blood pressure is 131/98, heart rate of 66, respiratory rate of 19, temperature 97.8 degrees, heart rate was 66. Cardiovascular: Regular rate and rhythm. Pulmonary: Bilateral breath sounds clear to auscultation. Gastrointestinal: Soft, nontender, nondistended. Bowel sounds are positive. LABORATORY DATA: No white count today. Creatinine 4.4. PROBLEM LIST: 1. Proteus urinary tract infection with multiple resistance but sensitive to cefazolin, Unasyn, amikacin, Zosyn and tobramycin, but she is allergic to ceftazidime and Zosyn. She is currently on meropenem or Invanz. We will discharge her on gentamicin. She already has end- stage renal. She is already hard of hearing, and we will dose it after dialysis. I have discussed the case with Dr. Hannon. 2. Atrial fibrillation is stable. 3. Large 16 mm stone with ureterolithiasis. Plan for extracorporeal shockwave lithotripsy tomorrow and then anticipate discharge subsequently. cc: Domingo Francis MD
[2020-02-12] MEDS: MEVACOR PO SCH (22:12)
[2020-02-12] MEDS: NORVASC PO SCH (22:12)
[2020-02-13] MEDS: INVANZ 1 GM/NS 1 GM/50 ML IVPB IV SCH (04:12)
[2020-02-13] MEDS: HUMULIN R SUBQ SCH ×3 (06:29→16:40)
[2020-02-13] MEDS: PRILOSEC PO SCH (06:30)
[2020-02-13] MEDS: NOVOLOG MIX 70/30 SUBQ SCH ×2 (06:30→16:37)
[2020-02-13] MEDS: SYNTHROID PO SCH (06:31)
[2020-02-13] MEDS ORDERED: TOBRAMYCIN 80 MG in NS 50 ML IV ONE (06:35)
[2020-02-13] MEDS ORDERED: INSULIN PEN NEEDLES ONE (07:14)
--- NOTE | 2020-02-13 10:22 | NEPHROLOGY PROGRESS NOTE ---
DATE: 02/13/2020 DATE AND TIME OF EXAM: 02/13/2020 at 0820 hours. SUBJECTIVE: Patient lying in bed awake with staff at bedside. She denies any complaints at the moment. She voices having a good night. OBJECTIVE: Vital signs: Temperature 98.9 degrees, pulse 62, respirations 19, blood pressure 125/40, O2 saturation 100% on 3 L nasal cannula. General: Chronically ill- appearing elderly white female, lying in bed in no acute distress. HEENT: Normocephalic, atraumatic. Mucous membranes moist. Pupils equal and reactive. Skin: Warm and dry. Neck: Supple, 6 cm JVD noted. Cardiovascular: S1, S2. Regular rate and rhythm with a systolic murmur. No gallop. Respiratory: Clear to auscultation with equal air entry. Abdomen: Soft, nontender, nondistended. Positive bowel sounds. : Not inspected. Suprapubic catheter in place. Dressing dry and intact. Extremities: No clubbing, cyanosis or edema noted. Neurological: Alert and oriented to person, place and time. LABS: Intake 900; output 7241. IMPRESSION: 1. Chronic kidney disease stage 5 D. The patient had a routine hemodialysis yesterday with a 6966 mL ultrafiltration. She tolerated it well. We will continue her current dialysis regimen. 2. Complicated urinary tract infection a 16 mm obstructive stone. She is on tobramycin to be given after dialysis in the outpatient setting. She is scheduled today for a lithotripsy with Dr. Orta. 3. Blood pressure. Stable. 4. Fluid volume. Euvolemic. 5. Anemia. Stable on last labs. 6. Electrolytes and acid-base balance. Stable on last labs. Hemodialysis for management. 7. Nutrition: She has been on nothing by mouth since midnight. 8. Medication review: No changes. DISPOSITION: The patient plans on going home after lithotripsy today. We will follow up with her in the outpatient setting. Dictated by BENJAMIN Stanley for Khai Hannon MD Face to face encounter, data reviewed, discussed with Tan Bangura on 02/13/20. I agree with the above assessment and plan of care. cc: Khai Hannon MD [facility]
[2020-02-13] MEDS ORDERED: DIPRIVAN 1% ONE (10:39)
[2020-02-13] MEDS ORDERED: XYLOCAINE-MPF 2% ONE (10:40)
[2020-02-13] MEDS ORDERED: ZOFRAN ONE (10:40)
[2020-02-13] MEDS ORDERED: EPHEDRINE ONE (10:42)
[2020-02-13] MEDS ORDERED: PEPCID ONE (10:59)
--- NOTE | 2020-02-13 13:35 | DISCHARGE SUMMARY ---
ADMISSION DATE: 02/09/2020 DISCHARGE DATE: PRIMARY CARE PROVIDER: Dr. Benito De Dios. CONSULTATIONS: 1. Dr. Hannon with nephrology. 2. Dr. Ray with urology. PERTINENT PROCEDURES: Abdominal x-ray, left nephroureteral stent in good position. DISCHARGE DIAGNOSES: 1. Chronic kidney disease stage 5. The patient is continued on her regular scheduled hemodialysis. 2. Complicated urinary tract infection with a 16 mm obstructive stone. She is on tobramycin renally-dosed and will receive this in the outpatient setting after her hemodialysis. 3. A 16 mm obstructive stone. Patient is due for a lithotripsy today and then will return to rehabilitation. 4. Blood pressure 5. Atrial fibrillation, stable. HOSPITAL COURSE: Briefly, Ms. Orellana is a 74-year-old female with a history of end-stage renal disease on hemodialysis, chronic UTI, congestive heart failure, COPD, and diabetes mellitus type 2, who was sent from [facility] after having a multiresistant urinary tract infection. She was initially moderately confused. She had recently been in the hospital with a urinary tract infection and was noted to have a 16 mm left UPJ stone with severe left hydronephrosis as well as right renal atrophy. She had an indwelling double-J stent placed at that time. She has been placed on tobramycin that she will receive after hemodialysis and will undergo a lithotripsy today with Dr. Orta, and then she will be returning back to [facility]. VITAL SIGNS: At the time of discharge, temperature is 98.9 degrees, heart rate 60, respirations 19, blood pressure 125/40, O2 is 100% on 3 L nasal cannula. DISCHARGE DIET: Renal with Nepro shakes. DISCHARGE MEDICATIONS: She will receive her tobramycin after her regularly scheduled hemodialysis sessions and will continue her previous home medications of Norvasc, lovastatin, glucagon emergency kit, acetaminophen, acidophilus, aspirin, Coreg, Colace, Eliquis, vitamin D2, Levemir, Prilosec, PhosLo, Prozac, Synthroid, and a NovoLog mix 70/30. FOLLOWUP: Ms. Orellana will be discharged back to [facility] where she will continue her regularly scheduled dialysis and receive her antibiotics after. She will be discharged after her lithotripsy today with Dr. Orta. She is take all medications as prescribed. She can return to the ED or call 911 for any worsening of symptoms. Dictated by BENJAMIN Stanford for Domingo Francis MD cc: Domingo Francis MD [facility]
[2020-02-13] MEDS: VITAMIN D PO SCH (15:26)
[2020-02-13] MEDS: ASPIRIN EC PO SCH (15:26)
[2020-02-13] MEDS: PROZAC PO SCH (15:27)
[2020-02-13] MEDS: PHOSLO PO SCH ×2 (15:30→16:37)
--- NOTE | 2020-02-13 15:48 | DISCHARGE SUMMARY ---
ADMISSION DATE: 02/09/2020 DISCHARGE DATE: 02/13/2020 Patient is looking well. She was seen post-op after shockwave lithotripsy and plan is to discharge today back to the [facility]. She does have Proteus that is relatively sensitive, but she is allergic to Pipracil and ceftazidime, which really limits us, so we are going to give her gentamicin renally dosed with dialysis. I have discussed this with Dr. Hannon. Obviously, nephrotoxicity is a moot point and we will keep an eye on things. Treat for another week. DISCHARGE CONDITION: Stable. Please see combined discharge information per BENJAMIN Stanford. 35 minute discharge. cc: Domingo Francis MD
[2020-02-13] MEDS: COLACE PO SCH (15:49)
[2020-02-13] MEDS: LEVEMIR SUBQ SCH (15:50)
[2020-02-13] MEDS: ELIQUIS PO SCH (15:50)
[2020-02-13] MEDS: CULTURELLE PO SCH (15:50)
[2020-02-13] MEDS: COREG PO SCH (15:51)
[2020-02-13 18:44] VITALS: BP 135/36
[2020-02-15] MEDS ORDERED: TOBRAMYCIN 80 MG in NS 50 ML IV SCH (06:45)
--- NOTE | 2020-02-18 16:32 | OPERATIVE NOTE ---
PROCEDURE DATE: 02/13/2020 SURGEON: Fausto Ray MD. PREOP DIAGNOSIS: 1. Left ureteral stone. 2. Urinary tract infections. 3. Ureteral stent. POSTOP DIAGNOSIS: 1. Left ureteral stone. 2. Urinary tract infections. 3. Ureteral stent. PROCEDURE NAME: Left extracorporeal shockwave lithotripsy, cystoscopy with left ureteral stent. INDICATIONS: 74-year-old female with history of stroke who presented approximately 5 weeks ago and had a large obstructing left ureteral stone. She underwent emergent cystoscopy with left ureteral stent placement. She was discharged home, was advised to follow up with us to discuss elective lithotripsy and stent removal. In the interim, she presented with another UTI and was admitted. Urology was re-consulted. She was advised to undergo the procedure. Given her mental status after the stroke, conversation was held with her daughter and decision was made for the patient to proceed with left extracorporeal shockwave lithotripsy with cystoscopy and left ureteral stent removal. FINDINGS: The stone was easily broken up with 2000 shocks delivered at a frequency 1.5 hertz followed by 2 hertz. Energy settings were for 1 until 6. Total fluoroscopy time was 2 minutes and 16 seconds. The stone showed excellent fragmentation. Ureteral stone was discarded. DESCRIPTION OF PROCEDURE: After informed consent patient brought to the operating room. Perioperative antibiotics and laryngeal mask anesthesia were administered. She was placed in supine position with a Lithotripter over left side. Stone was seen. Above-stated number of shocks were delivered. 20 mg intravenous Lasix were given. Upon stone break-up and conclusion the case we placed her in frogleg position. Her genitals were prepped and draped. A 16-Afghan flexible cystoscope was introduced. Her left ureteral stent was seen protruding from left ureteral orifice. It was secured and retrieved. The stent was discarded. She was extubated taken PACU for further recovery. BLOOD LOSS: None. COMPLICATIONS: None. SPECIMENS: Ureteral stent which was discarded. DRAINS: None. DISPOSITION: To PACU and subsequently floor for observation and ultimate discharge if okay with hospice colleagues. cc: Fausto Ray MD
== END 2020-02-13 19:00 | DRG 698 ==
LOC: SUPCPDRO → ED 18:42 → 1N 21:16 → SUATTDRO 21:16
PROVIDERS: ATTEND Internal Medicine
PROC: UR.ESWL (2020-02-13 11:25)